=== PATIENT | male | born 1945 | race Caucasian/White ===

== ENCOUNTER 2020-12-01 13:42 | Inpatient (IN) | payer MEDICARE, MEDICAID, SELFPAY ==
--- NOTE | ~2020-12-01 | MR_ITS ---
EXAMINATION: MR BRAIN WITHOUT CONTRAST CLINICAL INFORMATION: Stroke. COMPARISON: Head CT 12/01/2020. TECHNIQUE: Multiplanar, multisequence imaging of the brain was performed without intravenous contrast. Many of the sequences are moderately motion degraded. Some diagnostic information was still obtained. FINDINGS: There is a small acute lacunar infarct within the right thalamus with small amount of associated hemorrhage. A small acute left caudate head lacunar infarct is also present. There is no large territorial infarction, mass, or significant regional mass effect. Chronic infarcts are seen in the bilateral basal ganglia, left thalamus, and bilateral cerebellar hemispheres. There is chronic cortical infarct within the right occipital lobe involving the [employer] vascular territory. Moderate to severe confluent T2/FLAIR hyperintensity in the cerebral white matter is most compatible with chronic microangiopathy. There is diffuse brain parenchymal volume loss with prominence of the ventricles and sulci. No acute hydrocephalus is noted. Major arterial flow voids appear grossly preserved. The orbital contents appear normal. Mild paranasal sinus mucosal thickening is seen. MR/MR head/brain wo con IMPRESSION: Acute infarct within the right thalamus with mild associated hemorrhage. Additional small acute lacunar infarct in the left caudate. Chronic cortical infarct in the right occipital lobe and chronic lacunar infarcts in bilateral basal ganglia, left thalamus, and cerebellar hemispheres. Background changes of advanced chronic microangiopathy.
--- NOTE | ~2020-12-01 | XR_ITS ---
EXAMINATION: XR CHEST CLINICAL INFORMATION: Cough COMPARISON: Previous chest x-rays most recent April [address] most recent June 2014 TECHNIQUE: Frontal view of the chest was obtained. FINDINGS: The cardiac and mediastinal contours are normal. There is a new 1.7 cm right mid lung nodule. The lungs are otherwise clear. There is no pleural effusion or pneumothorax. There are degenerative changes of the spine. XR/XR chest 1V IMPRESSION: New 1.7 cm right pulmonary nodule. Follow-up chest CT scan recommended.
--- NOTE | ~2020-12-01 | CT_ITS ---
EXAMINATION: CT HEAD WITHOUT CONTRAST CLINICAL INFORMATION: Acute mental status change COMPARISON: Previous head CT December 2011 TECHNIQUE: Contiguous axial imaging was performed from the skull base to vertex without intravenous administration of contrast. This CT examination was performed using dose optimization techniques as appropriate, variously including the following: *Automated exposure control *Adjustment of mA and/or kV according to patient size (this includes techniques or standardized protocols for targeted exams where dose is matched to indication/reason for exam; i.e. extremities or head) *Use of iterative reconstruction technique DLP: 899 mGy-cm FINDINGS: There is no evidence of an extra-axial collection. There is no evidence of intra-axial or extra-axial hemorrhage. The ventricles and extra-axial CSF spaces are prominent suggestive of generalized atrophy. There is nonspecific periventricular white matter disease. There is an old right temporo-occipital infarct. There is decreased attenuation seen in the left occipital lobe for example measuring approximately 2 x 3 cm axial image 21 series 2 questionable for a recent infarct. There is evidence of old left thalamic and aggarwal or infarct. There is a 1.3 cm area of low attenuation in the right thalamus axial image 33 series 2 questionable for more recent right thalamic lacunar infarct. No mass effect is seen. Review at bone windows demonstrates no evidence of a skull fracture. The mastoid air cells and middle ears are clear. There is evidence of bilateral frontal and anterior ethmoid sinus disease. There is mild inflammatory change in the left maxillary sinus as well. CT/CT head/brain wo con IMPRESSION: Generalized atrophy and nonspecific periventricular white matter disease. 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 Question more recent right thalamic lacunar infarct and left occipital infarct. This could be better assessed with brain MRI if clinically indicated. All infarcts are new from 2012 exam and atrophy and periventricular white matter disease is new from 2012 exam as well. No hemorrhage seen. Bilateral frontal sinus and anterior ethmoid sinus disease.
--- NOTE | ~2020-12-01 | CT_ITS ---
EXAMINATION: CT ANGIOGRAM OF THE HEAD CT ANGIOGRAM OF THE NECK CLINICAL INFORMATION: Number stroke. COMPARISON: MRI scan the brain obtained earlier 12/02/2020. CT scan of the head 12/01/2020. Chest x-ray 12/01/2020 TECHNIQUE: Test bolus series followed by intravenous administration 17 mL of Omnipaque 350. Helical imaging was performed in the axial plane from the mediastinum to the skull vertex. A delayed CT scan of the head was obtained. The degree of stenosis is based off NASCET criteria. The data was processed at the radiology ct technologist workstation for generation of MIP images. Three-dimensional volume rendered reformatted images were also generated at an offline 3-D workstation. This CT examination was performed using dose optimization techniques as appropriate, variously including the following: *Automated exposure control *Adjustment of mA and/or kV according to patient size (this includes techniques or standardized protocols for targeted exams where dose is matched to indication/reason for exam; i.e. extremities or head) *Use of iterative reconstruction technique DLP: 1580 mGy-cm. FINDINGS: Imaging is markedly degraded by patient motion artifact of the head. CT Head: There is an area of low attenuation in the right thalamus, corresponding to the hemorrhagic infarct demonstrated on the prior MRI scan. No abnormal mass-effect or midline shift is seen. No extra-axial fluid collections are identified. There is no abnormal enhancement. The ventricles and sulci are commensurately prominent consistent with diffuse volume loss. There is a large area of gliosis in the right occipital lobe, corresponding to sequelae of a chronic infarct. Overall, roland to white matter differentiation is well preserved. In addition to these changes, there are extensive areas of low-attenuation in the periventricular and subcortical white matter, most consistent with chronic microvascular ischemic changes. There are no acute osseous findings. There is opacification of the bilateral frontal sinuses and the right greater than left ethmoid air cells. There is a small retention cyst in the left maxillary sinus. CTA Neck: There are atheromatous calcifications of the aortic arch, which has a classic configuration. There are atheromatous calcifications at the origins of the great vessels of the neck including the right subclavian artery. The common carotid arteries are patent bilaterally, but imaging is degraded by patient motion artifact in some regions. There are atheromatous calcifications at the right carotid bifurcation. There is no significant stenosis. More distally in the neck the cervical internal carotid arteries are patent. There are atheromatous calcifications at the origin of the left vertebral artery. The vertebral arteries are patent throughout the cervical course. The left vertebral artery is slightly dominant. Imaging is suboptimal in regions of patient motion artifact. Nonvascular: There is a 2 cm nodule in the superior segment of the right lower lobe, demonstrated on the chest x-ray. There are emphysematous changes in the lungs bilaterally. The thyroid gland appears normal. There is no cervical lymphadenopathy. There are multilevel spondylitic changes in the cervical spine. CTA Head: Patient motion artifact is especially prominent in the [place] of [place]ardo and more superior circulation in the brain. There are atheromatous calcifications of the cavernous internal carotid arteries bilaterally, but the vessels appear patent with thin caliber. Due to motion artifact, the middle and anterior cerebral arteries are poorly evaluated, and pathology cannot be excluded. The intradural vertebral arteries are patent bilaterally. The basilar artery is patent. The left posterior cerebral artery arises primarily off the anterior circulation which is a normal variant. The remaining arterial structures in the posterior circulation are degraded by patient motion artifact. CT/CT angio head neck IMPRESSION: Markedly suboptimal study with extensive patient motion artifact. CT head and neck: 1. The study redemonstrates chronic infarct changes in the right occipital lobe. There is an area of low-attenuation in the right thalamus corresponding to the area of acute infarction. 2. There is diffuse volume loss and there are extensive chronic microvascular ischemic changes. 3. There are no intracranial masses or areas of abnormal enhancement. 4. There is a 2 cm mass at the superior segment of the right lower lobe. Recommend CTA scan of the chest with contrast for further assessment. CT head and neck: 1. The carotid and the vertebral arteries appear patent without significant focal stenosis in the neck. The carotid bifurcations appear normal. 2. Evaluation of the intracranial circulation is markedly suboptimal, and pathology cannot be excluded on the basis of this study. Recommend repeat CTA, at least of the head, with better sedation.
--- NOTE | ~2020-12-01 | US_ITS ---
EXAMINATION: US EXTRACRANIAL CAROTID DUPLEX, BILATERAL CLINICAL INFORMATION: This is a 75-year-old male with a history of stroke. Carotid artery disease. COMPARISON: None TECHNIQUE: Real-time ultrasound and Doppler techniques (integrating B-mode 2-D vascular images, Doppler spectral analysis and color-flow Doppler imaging) were utilized to interrogate the extracranial carotid arteries, the vertebral arteries and proximal subclavian arteries bilaterally. The degree of stenosis is determined by criteria similar to NASCET. FINDINGS: Right Side: 1. There is minimal atherosclerotic plaque seen in the bifurcation/proximal ICA region. 2. The common carotid artery PSV proximally is 62 cm/s and distally 99 cm/s. 3. The proximal internal carotid artery velocities are 69 cm/s systolic and 10 cm/s diastolic. 4. The proximal external carotid artery PSV is 164 cm/s. 5. The vertebral artery shows antegrade flow. 6. The subclavian artery waveforms are normal. Left Side: 1. There is minimal atherosclerotic plaque seen in the bifurcation/proximal ICA region. 2. The common carotid artery PSV proximally is 88 cm/s and distally 72 cm/s. 3. The proximal internal carotid artery velocities are 116 cm/s systolic and 18 cm/s diastolic. 4. The proximal external carotid artery PSV is 77 cm/s. 5. The vertebral artery shows antegrade flow. 6. The subclavian artery waveforms are normal. US/US carotid duplex BI IMPRESSION: 1. RIGHT: Minimal, non-hemodynamically significant stenosis of the proximal right internal carotid artery corresponding to a 0-49% stenosis by velocity criteria. 2. LEFT: Minimal, non-hemodynamically significant stenosis of the proximal left internal carotid artery corresponding to a 0-49% stenosis by velocity criteria.
[2020-12-01 14:01] VITALS: BP 117/91; PULSE 83; RESP 20; TEMP 36.6; O2SAT 93; BMI 26.6
--- NOTE | 2020-12-01 14:07 | ECG_ITS ---
Test Reason : WEAKNESS Blood Pressure : / mmHG Vent. Rate : 080 BPM Atrial Rate : 080 BPM P-R Int : 160 ms QRS Dur : 132 ms QT Int : 430 ms P-R-T Axes : 114 -81 102 degrees QTc Int : 495 ms Sinus rhythm with Premature atrial complexes Left axis deviation Right bundle branch block Lateral infarct , age undetermined Inferior infarct (cited on or before 23-MAR-2005) Abnormal ECG When compared with ECG of 16-APR-2019 17:05, Premature atrial complexes are now Present Right bundle branch block is now Present Lateral infarct is now Present Referred By: Alka Alexandra Electronically Signed By:TYLER GREENE MD
--- NOTE | 2020-12-01 14:09 | ED.AMS ---
HPI - Altered Mental Status General Chief Complaint: Altered Mental Status Stated Complaint: AMS Time Seen by Provider: 12/01/20 13:47 Source: patient Mode of arrival: ambulatory History of Present Illness HPI narrative: 75-year-old male with unknown past medical history BIBA for increased lethargy/generalized fatigue/weakness and AMS x2 days. Most history obtained from patient's daughter who reports patient lives with girlfriend and noted to be in bed for the past 2 days. At baseline A&O x3, ambulates without assistive devices, cares for self/girlfriend. Patient admits to cough, and feeling tired denies other complaints. Of note patient also received COVID-19 vaccine on Wednesday. Denies fever, shortness breath, chest pain, abdominal pain. No known falls History limited due to patient's acute AMS MD complaint: altered mental status and confusion Related Data Allergies Allergy/AdvReac Type Severity Reaction Status Date / Time No Known Allergies Allergy Mild Unverified 06/27/20 15:10 Review of Systems Review of Systems: Constitutional: No Fever, No Chills, +Fatigue, + Malaise Cardiovascular: No Chest Pain, No SOB Respiratory: +Cough Gastrointestinal: No Nausea, No Vomiting, No Abdominal pain Musculoskeletal: No joint pain Skin: No Skin Lesions, No rash Neuro: + Weakness History limited due to patient's acute AMS Yes all other systems are reviewed and are negative [facility] Past Medical History Attestation statement: The following information was validated with the patient. Social History Social History Advance Directives: No Advance Directives Information Provided: No Physical Exam Vital Signs: Vital Signs: Last Vital Signs Temp 97.9 F 12/01/20 16:03 Pulse 80 12/01/20 16:03 Resp 20 12/01/20 16:03 BP 118/66 12/01/20 16:03 Pulse Ox 95 12/01/20 16:03 Body Mass Index 26.6 Const: General: cooperative and lethargic Orientation/consciousness: oriented to person, oriented to place and lethargic Limitations: no limitations HENMT: Head: Yes normal to inspection Ears: hearing grossly normal bilaterally General nose exam: Normal external nose present Face and sinus: Yes normal facial exam Eyes: General: appearance normal, both eyes and all related structures Pupils: Equal, round and reactive pupils present EOM: EOMs intact bilaterally Neck: Neck: Yes normal visual inspection and Yes no meningeal signs Resp: Effort & Inspection: normal respiratory effort Auscultation: clear to auscultation bilaterally and wheezes expiratory wheezes Cardio: Rate: regular rate Heart sounds: S1 normal heart sound present and S2 normal heart sound present GI: Inspection: Yes normal to inspection Palpation (GI): Soft to palpation, nontender, no guarding and not rigid Skin: Rashes: no rashes Wounds: no wounds Neuro: Other: Lethargic. Sleeping on exam, arousable to voice General: oriented to person, oriented to place, tone normal, moves all extremities, no meningeal signs, no focal motor deficits and CN's II-XI intact bilaterally Cranial nerves: Yes Equal, round and reactive pupils present Extrem: Other: +1 pitting edema General: Yes normal to inspection Course Course Course Narrative: -[id number]--tox screen positive for THC, UA infected > IV Rocephin ordered. Newly, patient's girlfriend reported to daughter patient complaining of dysuria -COVID-19/Flu/RSV negative XR chest 1V IMPRESSION: New 1.7 cm right pulmonary nodule. Follow-up chest CT scan recommended -labs unremarkable CT head/brain wo con IMPRESSION: Generalized atrophy and nonspecific periventricular white matter disease. 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 Question more recent right thalamic lacunar infarct and left occipital infarct. This could be better assessed with brain MRI if clinically indicated. All infarcts are new from 2012 exam and atrophy and periventricular white matter disease is new from 2012 exam as well. No hemorrhage seen. Bilateral frontal sinus and anterior ethmoid sinus disease >> will admit for brain MRI/further management MDM - Altered Mental Status MDM Narrative Medical decision making narrative: 75-year-old male with unknown past medical history BIBA for increased lethargy/generalized fatigue/weakness and AMS x2 days. On exam VSS, NAD, physical exam as above, patient lethargic/sleeping on exam, easily arousable, no focal deficits appreciated. Concern for infectious etiology/metabolic derangements vs viral syndrome/COVID-19. Lower concern for severe sepsis at this time. Rule out CVA Plan: EKG, labs, UA, CXR, head CT, COVID-19 testing, anticipated admission Lab Data Result diagrams: 12/01/20 15:49 12/01/20 15:49 Labs: Lab Results 12/01/20 12/01/20 12/01/20 Range/Units 14:31 14:31 14:31 WBC (4.8-10.8) X10*3/uL RBC (4.60-5.80) X10*6/uL Hgb (14.0-18.0) g/dl Hct (42-52) % MCV (80-98) fL MCH (27.0-33.0) pg MCHC (31.0-36.0) g/dl RDW (11.0-16.0) % Plt Count (160-400) X10*3/uL MPV (9.4-12.4) fL Immature Gran % (Auto) (0.0-0.4) % Neut % (Auto) (45-73) % Lymph % (Auto) (20-40) % [place] % (Auto) (2-11) % Eos % (Auto) (0-4) % Baso % (Auto) (0-2) % Lymph # (Auto) (1.2-4.9) X10*3/uL [place] # (Auto) (0.1-1.2) X10*3/uL Eos # (Auto) (0.0-0.4) X10*3/uL Baso # (Auto) (0.0-0.2) X10*3/uL Abs Immat Gran (auto) (0.00-0.03) X10*3/uL Absolute Neuts (auto) (2.0-8.3) X10*3/uL Absolute Nucleated RBC (0.0-0.012) X10*3/uL Nucleated RBC % (auto) (0.0-0.2) /100WBC PT (10.8-13.0) SEC INR (0.9-1.1) APTT (24.1-38.0) SEC Sodium (135-145) mmol/L Potassium (3.3-5.1) mmol/L Chloride (96-108) mmol/L Carbon Dioxide (22-29) mmol/L Anion Gap (12-20) BUN (9-16) mg/dL Creatinine (0.5-1.4) mg/dL Estim Creat Clear Calc Estimated GFR Random Glucose (60-115) mg/dL Calcium (8.4-10.2) mg/dL Magnesium (1.6-2.6) mg/dL Ferritin (20-250) ng/mL Total Bilirubin (0.0-1.0) mg/dL Direct Bilirubin (0.0-0.5) mg/dL AST (5-37) U/L ALT (0-40) U/L Alkaline Phosphatase (39-117) U/L Ammonia (13-55) umol/L Lactate Dehydrogenase (118-273) U/L Troponin I High Sens (<3.5-35.0) ng/L C-Reactive Protein (< or = 0.50) mg/dL B-Natriuretic Peptide (<100) pg/mL Total Protein (6.5-8.0) g/dL Albumin (3.5-5.0) g/dL Lipase (8-78) U/L Procalcitonin ng/mL Urine Color YELLOW Urine Appearance CLEAR Urine pH 6.5 (5.0-8.0) Ur Specific [place] 1.020 (1.005-1.025) Urine Protein TRACE (NEG-TRACE) MG/DL Urine Glucose (UA) NEG (NEG) MG/DL Urine Ketones NEG (NEG) MG/DL Urine Blood NEG (NEG) Urine Nitrite NEG (NEG) Ur Leukocyte Esterase 2+ H (NEG) Urine RBC 0 (0) /HPF Urine WBC 5-9 H (0-4) /HPF Ur Squamous Epith Cells 1+ /LPF Urine Bacteria NONE /LPF Urine Mucus 1+ /LPF Urine Opiates Screen Not Detected (Not Detect) Ur Barbiturates Screen Not Detected (Not Detect) Ur Phencyclidine Scrn Not Detected (Not Detect) Ur Amphetamines Screen Not Detected (Not Detect) U Benzodiazepines Scrn Not Detected (Not Detect) Urine Cocaine Screen Not Detected (Not Detect) U Marijuana (THC) Screen POSITIVE H (Not Detect) Coronavirus (PCR) NEGATIVE (Negative) Influenza Type A (PCR) NEGATIVE (Negative) Influenza Type B (PCR) NEGATIVE (Negative) RSV RNA Qual (PCR) NEGATIVE (Negative) 12/01/20 12/01/20 12/01/20 Range/Units 15:49 15:49 15:49 WBC 8.7 (4.8-10.8) X10*3/uL RBC 4.90 (4.60-5.80) X10*6/uL Hgb 15.5 (14.0-18.0) g/dl Hct 47.9 (42-52) % MCV 97.8 (80-98) fL MCH 31.6 (27.0-33.0) pg MCHC 32.4 (31.0-36.0) g/dl RDW 13.1 (11.0-16.0) % Plt Count 204 (160-400) X10*3/uL MPV 10.5 (9.4-12.4) fL Immature Gran % (Auto) 0.2 (0.0-0.4) % Neut % (Auto) 63.6 (45-73) % Lymph % (Auto) 24.1 (20-40) % [place] % (Auto) 9.3 (2-11) % Eos % (Auto) 2.6 (0-4) % Baso % (Auto) 0.2 (0-2) % Lymph # (Auto) 2.1 (1.2-4.9) X10*3/uL [place] # (Auto) 0.8 (0.1-1.2) X10*3/uL Eos # (Auto) 0.2 (0.0-0.4) X10*3/uL Baso # (Auto) 0.0 (0.0-0.2) X10*3/uL Abs Immat Gran (auto) 0.02 (0.00-0.03) X10*3/uL Absolute Neuts (auto) 5.5 (2.0-8.3) X10*3/uL Absolute Nucleated RBC 0.000 (0.0-0.012) X10*3/uL Nucleated RBC % (auto) 0.0 (0.0-0.2) /100WBC PT 13.6 H (10.8-13.0) SEC INR 1.1 (0.9-1.1) APTT 33.4 (24.1-38.0) SEC Sodium 141 (135-145) mmol/L Potassium 3.6 (3.3-5.1) mmol/L Chloride 106 (96-108) mmol/L Carbon Dioxide 27 (22-29) mmol/L Anion Gap 12 (12-20) BUN 7 L (9-16) mg/dL Creatinine 0.87 (0.5-1.4) mg/dL Estim Creat Clear Calc 62.8 Estimated GFR > 60 Random Glucose 214 H (60-115) mg/dL Calcium 8.1 L (8.4-10.2) mg/dL Magnesium 1.7 (1.6-2.6) mg/dL Ferritin 125 (20-250) ng/mL Total Bilirubin 0.8 (0.0-1.0) mg/dL Direct Bilirubin 0.3 (0.0-0.5) mg/dL AST 12 (5-37) U/L ALT 15 (0-40) U/L Alkaline Phosphatase 98 (39-117) U/L Ammonia (13-55) umol/L Lactate Dehydrogenase 183 (118-273) U/L Troponin I High Sens (<3.5-35.0) ng/L C-Reactive Protein 0.41 (< or = 0.50) mg/dL B-Natriuretic Peptide (<100) pg/mL Total Protein 6.0 L (6.5-8.0) g/dL Albumin 3.3 L (3.5-5.0) g/dL Lipase 4 L (8-78) U/L Procalcitonin ng/mL Urine Color Urine Appearance Urine pH (5.0-8.0) Ur Specific [place] (1.005-1.025) Urine Protein (NEG-TRACE) MG/DL Urine Glucose (UA) (NEG) MG/DL Urine Ketones (NEG) MG/DL Urine Blood (NEG) Urine Nitrite (NEG) Ur Leukocyte Esterase (NEG) Urine RBC (0) /HPF Urine WBC (0-4) /HPF Ur Squamous Epith Cells /LPF Urine Bacteria /LPF Urine Mucus /LPF Urine Opiates Screen (Not Detect) Ur Barbiturates Screen (Not Detect) Ur Phencyclidine Scrn (Not Detect) Ur Amphetamines Screen (Not Detect) U Benzodiazepines Scrn (Not Detect) Urine Cocaine Screen (Not Detect) U Marijuana (THC) Screen (Not Detect) Coronavirus (PCR) (Negative) Influenza Type A (PCR) (Negative) Influenza Type B (PCR) (Negative) RSV RNA Qual (PCR) (Negative) 12/01/20 12/01/20 12/01/20 Range/Units 15:49 15:49 15:49 WBC (4.8-10.8) X10*3/uL RBC (4.60-5.80) X10*6/uL Hgb (14.0-18.0) g/dl Hct (42-52) % MCV (80-98) fL MCH (27.0-33.0) pg MCHC (31.0-36.0) g/dl RDW (11.0-16.0) % Plt Count (160-400) X10*3/uL MPV (9.4-12.4) fL Immature Gran % (Auto) (0.0-0.4) % Neut % (Auto) (45-73) % Lymph % (Auto) (20-40) % [place] % (Auto) (2-11) % Eos % (Auto) (0-4) % Baso % (Auto) (0-2) % Lymph # (Auto) (1.2-4.9) X10*3/uL [place] # (Auto) (0.1-1.2) X10*3/uL Eos # (Auto) (0.0-0.4) X10*3/uL Baso # (Auto) (0.0-0.2) X10*3/uL Abs Immat Gran (auto) (0.00-0.03) X10*3/uL Absolute Neuts (auto) (2.0-8.3) X10*3/uL Absolute Nucleated RBC (0.0-0.012) X10*3/uL Nucleated RBC % (auto) (0.0-0.2) /100WBC PT (10.8-13.0) SEC INR (0.9-1.1) APTT (24.1-38.0) SEC Sodium (135-145) mmol/L Potassium (3.3-5.1) mmol/L Chloride (96-108) mmol/L Carbon Dioxide (22-29) mmol/L Anion Gap (12-20) BUN (9-16) mg/dL Creatinine (0.5-1.4) mg/dL Estim Creat Clear Calc Estimated GFR Random Glucose (60-115) mg/dL Calcium (8.4-10.2) mg/dL Magnesium (1.6-2.6) mg/dL Ferritin (20-250) ng/mL Total Bilirubin (0.0-1.0) mg/dL Direct Bilirubin (0.0-0.5) mg/dL AST (5-37) U/L ALT (0-40) U/L Alkaline Phosphatase (39-117) U/L Ammonia 29 (13-55) umol/L Lactate Dehydrogenase (118-273) U/L Troponin I High Sens 14.3 (<3.5-35.0) ng/L C-Reactive Protein (< or = 0.50) mg/dL B-Natriuretic Peptide 169 H (<100) pg/mL Total Protein (6.5-8.0) g/dL Albumin (3.5-5.0) g/dL Lipase (8-78) U/L Procalcitonin 0.03 ng/mL Urine Color Urine Appearance Urine pH (5.0-8.0) Ur Specific [place] (1.005-1.025) Urine Protein (NEG-TRACE) MG/DL Urine Glucose (UA) (NEG) MG/DL Urine Ketones (NEG) MG/DL Urine Blood (NEG) Urine Nitrite (NEG) Ur Leukocyte Esterase (NEG) Urine RBC (0) /HPF Urine WBC (0-4) /HPF Ur Squamous Epith Cells /LPF Urine Bacteria /LPF Urine Mucus /LPF Urine Opiates Screen (Not Detect) Ur Barbiturates Screen (Not Detect) Ur Phencyclidine Scrn (Not Detect) Ur Amphetamines Screen (Not Detect) U Benzodiazepines Scrn (Not Detect) Urine Cocaine Screen (Not Detect) U Marijuana (THC) Screen (Not Detect) Coronavirus (PCR) (Negative) Influenza Type A (PCR) (Negative) Influenza Type B (PCR) (Negative) RSV RNA Qual (PCR) (Negative)
[2020-12-01 14:39] LABS: Glucose Urine UA NEG (NEG); Leukocyte Esterase Urine 2+ (NEG); Nitrite Urine NEG (NEG); PH 6.5 (5.0-8.0); UACC Culture Trigger YES; Urine Blood NEG (NEG); Urine Ketones NEG (NEG); Urine Protein TRACE MG/DL (NEG-TRACE)
[2020-12-01 14:51] LABS: Appearance Urine CLEAR; Color Urine YELLOW
[2020-12-01 14:53] LABS: RBC Urine 0 /HPF (0)
[2020-12-01 14:54] LABS: Mucus Urine 1+ /LPF; Squamous Epithelial Cell Urine 1+ /LPF
[2020-12-01 15:06] LABS: Amphetamine Screen Urine Not Detected (Not Detect); Barbiturates, Urine Not Detected (Not Detect); Benzodiazepines Screen Urine Not Detected (Not Detect); Cannabinoid Screen Urine POSITIVE (Not Detect); Cocaine Screen Urine Not Detected (Not Detect); Opiate Screen Urine Not Detected (Not Detect); Phencyclidine Screen Urine Not Detected (Not Detect)
[2020-12-01 15:23] LABS: Influenza A PCR NEGATIVE (Negative); Influenza B PCR NEGATIVE (Negative); Resp Syncy Virus RNA Qual PCR NEGATIVE (Negative); SARS COV2 PCR INHOUSE NEGATIVE (Negative)
--- NOTE | 2020-12-01 15:54 | PC.NURSE ---
THIS RN SPOKE W/ PT'S S/O WHO REPORTS PT HAD C/O BURNING W/ URINATION LAST COUPLE DAYS, PROVIDER AWARE.
[2020-12-01 15:55] LABS: MANUAL DIFF FLAG NO
[2020-12-01 15:57] LABS: Basophils Percent Auto 0.2 % (0-2); Eosinophils Absolute Auto 0.2 X10*3/uL (0.0-0.4); Eosinophils Percent Auto 2.6 % (0-4); Hematocrit 47.9 % (42-52); Hemoglobin 15.5 g/dl (14.0-18.0); Imm Gran Abs Auto 0.02 X10*3/uL (0.00-0.03); Imm Gran Pct Auto 0.2 % (0.0-0.4); Lymphocytes Absolute Auto 2.1 X10*3/uL (1.2-4.9); Lymphocytes Percent Auto 24.1 % (20-40); Mean Corpuscular HGB Conc 32.4 g/dl (31.0-36.0); Mean Corpuscular Hemoglobin 31.6 pg (27.0-33.0); Mean Corpuscular Volume 97.8 fL (80-98); Mean Platelet Volume 10.5 fL (9.4-12.4); Monocytes Absolute Auto 0.8 X10*3/uL (0.1-1.2); Monocytes Percent Auto 9.3 % (2-11); Neutrophils Absolute Auto 5.5 X10*3/uL (2.0-8.3); Neutrophils Percent Auto 63.6 % (45-73); Platelet Count 204 X10*3/uL (160-400); Red Cell Distribution Width 13.1 % (11.0-16.0); White Blood Count 8.7 X10*3/uL (4.8-10.8)
[2020-12-01 16:03] VITALS: BP 118/66; PULSE 80; RESP 20; TEMP 36.6; O2SAT 95
[2020-12-01 16:06] LABS: INTERNATIONAL NORM RATIO 1.1 (0.9-1.1); Prothrombin Time 13.6 SEC (10.8-13.0)
[2020-12-01 16:08] LABS: Partial Thromboplastin Time 33.4 SEC (24.1-38.0)
[2020-12-01] MEDS: Albuterol/Iprat 2.5/0.5MG 3 ML AMPUL.NEB INHALE (16:09)
[2020-12-01 16:19] LABS: Ammonia 29 umol/L (13-55)
[2020-12-01 16:27] LABS: Alanine Aminotransferase 15 U/L (0-40); Albumin Level 3.3 g/dL (3.5-5.0); Alkaline Phosphatase 98 U/L (39-117); Anion Gap 12 (12-20); Aspartate Amino Transferase 12 U/L (5-37); Bilirubin Direct 0.3 mg/dL (0.0-0.5); Bilirubin Total 0.8 mg/dL (0.0-1.0); Blood Urea Nitrogen 7 mg/dL (9-16); C Reactive Protein 0.41 mg/dL (< or = 0.50); Calcium 8.1 mg/dL (8.4-10.2); Carbon Dioxide 27 mmol/L (22-29); Chloride 106 mmol/L (96-108); Creatinine Clr Calc Pharmacy 62.8; Estimated Glomerular Filt Rate > 60; Glucose Random 214 mg/dL (60-115); Lactate Dehydrogenase 183 U/L (118-273); Lipase 4 U/L (8-78); Magnesium 1.7 mg/dL (1.6-2.6); Potassium 3.6 mmol/L (3.3-5.1); Sodium 141 mmol/L (135-145)
[2020-12-01] MEDS: cefTRIAXone sodium 1 GM in 0.9 % Sodium Chloride 50 ML IV (16:29)
[2020-12-01 16:30] LABS: B Type Natriuretic Peptide 169 pg/mL (<100); Troponin-I High Sensitivity 14.3 ng/L (<3.5-35.0)
[2020-12-01 16:44] LABS: Procalcitonin 0.03 ng/mL
[2020-12-01 16:47] LABS: Ferritin 125 ng/mL (20-250)
--- NOTE | 2020-12-01 17:54 | P.HPHOSP_ITS ---
History of Present Illness Date of Service: 12/01/20 Chief Complaint: Confusion 75 year old man presenting with confusion. According to the patients step- daughter he received the covid vaccine on Wednesday. He was sore and she gave him two tylenol. Apparently his girlfriend said that the Tylenol knocked him out. Has been lethargic for last few days. He was stumbling out of bed and seemed to have chills. Step daughter tried to get him to talk and he seemed to be babbling . She was concerned and called PCP and was told to call EMS. She stated that she is usually alert abd oriented. He was able to tell his name and where he was but not the date or time. He did not give any useful information during the interview. He will be admitted for stroke. Review of Systems Review of Systems: Yes Unobtainable due to mental status [facility] Medical History (Updated 12/01/20 @ 18:41 by Charlene Yo NP) Asthma CAD (coronary artery disease) COPD (chronic obstructive pulmonary disease) GERD (gastroesophageal reflux disease) Scrotal abscess TIA (transient ischemic attack) Pertinent family history: Unknown Social History (Updated 12/01/20 @ 18:23 by Charlene Yo NP) Household Members: Significant Other Alcohol intake: former Packs Per Day: 0.5 Use of substances other than those prescribed or required for medical reasons: No Advance Directives: No Advance Directives Information Provided: No Meds Allergies Allergy/AdvReac Type Severity Reaction Status Date / Time No Known Allergies Allergy Mild Unverified 06/27/20 15:10 Home Medications Medication Instructions Recorded Confirmed Last Taken Type aspirin 1 tab PO DAILY 12/01/20 12/01/20 Unknown History atorvastatin 1 tab PO DAILY 12/01/20 12/01/20 Unknown History cyanocobalamin (vitamin B-12) 1 tab PO DAILY 12/01/20 12/01/20 Unknown History docusate sodium [DOK] 1 cap PO Q12H PRN 12/01/20 12/01/20 Unknown History furosemide 1.5 tab PO DAILY 12/01/20 12/01/20 Unknown History lisinopril 1 tab PO DAILY 12/01/20 12/01/20 Unknown History spironolactone 0.5 tab PO DAILY 12/01/20 12/01/20 Unknown History triamcinolone acetonide appl TOPICAL BID 12/01/20 Unknown History Physical Exam Vital Signs and Narrative: Vital Signs: Last Vital Signs Temp 97.9 F 12/01/20 16:03 Pulse 80 12/01/20 16:03 Resp 20 12/01/20 16:03 BP 118/66 12/01/20 16:03 Pulse Ox 95 12/01/20 16:03 Body Mass Index 26.6 Appearing in no acute distress head is normocephalic atraumatic eyes pupils are PERRLA sclera is anicteric mouth throat mucous membranes are intact and moist neck is supple no lymphadenopathy, no JVD noted lung sounds are clear to auscultation heart regular rate rhythm, clear S1, S2 positive bowel sounds, abdomen is soft, nontender neuro patient is alert x3, no focal deficits Results Labs CBC and Chem 7: 12/01/20 15:49 12/01/20 15:49 Labs: Laboratory Results - last 24 hr 12/01/20 12/01/20 12/01/20 14:31 14:31 14:31 MCV MCH MCHC RDW Plt Count MPV Immature Gran % (Auto) Neut % (Auto) Lymph % (Auto) [place] % (Auto) Eos % (Auto) Baso % (Auto) Lymph # (Auto) [place] # (Auto) Eos # (Auto) Baso # (Auto) Abs Immat Gran (auto) Absolute Neuts (auto) Absolute Nucleated RBC Nucleated RBC % (auto) PT INR APTT Anion Gap Estim Creat Clear Calc Estimated GFR Random Glucose Calcium Magnesium Ferritin Total Bilirubin Direct Bilirubin AST ALT Alkaline Phosphatase Ammonia Lactate Dehydrogenase Troponin I High Sens C-Reactive Protein B-Natriuretic Peptide Total Protein Albumin Lipase Procalcitonin Urine Color YELLOW Urine Appearance CLEAR Urine pH 6.5 Ur Specific [place] 1.020 Urine Protein TRACE Urine Glucose (UA) NEG Urine Ketones NEG Urine Blood NEG Urine Nitrite NEG Ur Leukocyte Esterase 2+ H Urine RBC 0 Urine WBC 5-9 H Ur Squamous Epith Cells 1+ Urine Bacteria NONE Urine Mucus 1+ Urine Opiates Screen Not Detected Ur Barbiturates Screen Not Detected Ur Phencyclidine Scrn Not Detected Ur Amphetamines Screen Not Detected U Benzodiazepines Scrn Not Detected Urine Cocaine Screen Not Detected U Marijuana (THC) Screen POSITIVE H Coronavirus (PCR) NEGATIVE Influenza Type A (PCR) NEGATIVE Influenza Type B (PCR) NEGATIVE RSV RNA Qual (PCR) NEGATIVE 02/12/01/20 12/01/20 15:49 15:49 15:49 MCV 97.8 MCH 31.6 MCHC 32.4 RDW 13.1 Plt Count 204 MPV 10.5 Immature Gran % (Auto) 0.2 Neut % (Auto) 63.6 Lymph % (Auto) 24.1 [place] % (Auto) 9.3 Eos % (Auto) 2.6 Baso % (Auto) 0.2 Lymph # (Auto) 2.1 [place] # (Auto) 0.8 Eos # (Auto) 0.2 Baso # (Auto) 0.0 Abs Immat Gran (auto) 0.02 Absolute Neuts (auto) 5.5 Absolute Nucleated RBC 0.000 Nucleated RBC % (auto) 0.0 PT 13.6 H INR 1.1 APTT 33.4 Anion Gap 12 Estim Creat Clear Calc 62.8 Estimated GFR > 60 Random Glucose 214 H Calcium 8.1 L Magnesium 1.7 Ferritin 125 Total Bilirubin 0.8 Direct Bilirubin 0.3 AST 12 ALT 15 Alkaline Phosphatase 98 Ammonia Lactate Dehydrogenase 183 Troponin I High Sens C-Reactive Protein 0.41 B-Natriuretic Peptide Total Protein 6.0 L Albumin 3.3 L Lipase 4 L Procalcitonin Urine Color Urine Appearance Urine pH Ur Specific [place] Urine Protein Urine Glucose (UA) Urine Ketones Urine Blood Urine Nitrite Ur Leukocyte Esterase Urine RBC Urine WBC Ur Squamous Epith Cells Urine Bacteria Urine Mucus Urine Opiates Screen Ur Barbiturates Screen Ur Phencyclidine Scrn Ur Amphetamines Screen U Benzodiazepines Scrn Urine Cocaine Screen U Marijuana (THC) Screen Coronavirus (PCR) Influenza Type A (PCR) Influenza Type B (PCR) RSV RNA Qual (PCR) 12/01/20 12/01/20 12/01/20 15:49 15:49 15:49 MCV MCH MCHC RDW Plt Count MPV Immature Gran % (Auto) Neut % (Auto) Lymph % (Auto) [place] % (Auto) Eos % (Auto) Baso % (Auto) Lymph # (Auto) [place] # (Auto) Eos # (Auto) Baso # (Auto) Abs Immat Gran (auto) Absolute Neuts (auto) Absolute Nucleated RBC Nucleated RBC % (auto) PT INR APTT Anion Gap Estim Creat Clear Calc Estimated GFR Random Glucose Calcium Magnesium Ferritin Total Bilirubin Direct Bilirubin AST ALT Alkaline Phosphatase Ammonia 29 Lactate Dehydrogenase Troponin I High Sens 14.3 C-Reactive Protein B-Natriuretic Peptide 169 H Total Protein Albumin Lipase Procalcitonin 0.03 Urine Color Urine Appearance Urine pH Ur Specific [place] Urine Protein Urine Glucose (UA) Urine Ketones Urine Blood Urine Nitrite Ur Leukocyte Esterase Urine RBC Urine WBC Ur Squamous Epith Cells Urine Bacteria Urine Mucus Urine Opiates Screen Ur Barbiturates Screen Ur Phencyclidine Scrn Ur Amphetamines Screen U Benzodiazepines Scrn Urine Cocaine Screen U Marijuana (THC) Screen Coronavirus (PCR) Influenza Type A (PCR) Influenza Type B (PCR) RSV RNA Qual (PCR) Imaging Radiologist's Impressions: Impressions Chest X-Ray 12/01/20 14:07 IMPRESSION: New 1.7 cm right pulmonary nodule. Follow-up chest CT scan recommended. Head CT 12/01/20 14:07 IMPRESSION: Generalized atrophy and nonspecific periventricular white matter disease. 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 Question more recent right thalamic lacunar infarct and left occipital infarct. This could be better assessed with brain MRI if clinically indicated. All infarcts are new from 2012 exam and atrophy and periventricular white matter disease is new from 2012 exam as well. No hemorrhage seen. Bilateral frontal sinus and anterior ethmoid sinus disease. Assessment and Plan (1) Encephalopathy: Status: Acute 75 year old man admitted with stroke symptoms. Stroke. MRI, echocardiogram, carotid doppler, PT/OT, neurology. Continue aspirin and statin. Hypertension. Hold lisinoril in light of stroke symptoms. CAD. Aspirin and statin DVT prophylaxis with Lovenox. Discussed with Dr. Santos Full code
[2020-12-01 20:53] VITALS: BP 125/63; PULSE 80; RESP 17; TEMP 36.6; O2SAT 93
[2020-12-01] MEDS: Enoxaparin Sodium 40 MG/0.4 ML SYRINGE SUBCUT (20:56)
[2020-12-01] MEDS: Aspirin 81 MG TAB.CHEW 162 MG PO (20:56)
[2020-12-02] VITALS (8 sets, daily range): BP systolic 115–152; BP diastolic 56–78; PULSE 69–98; RESP 15–23; TEMP 36.6–37.1; O2SAT 93–96
[2020-12-02 06:53] LABS: Basophils Percent Auto 0.2 % (0-2); Mean Corpuscular HGB Conc 33.1 g/dl (31.0-36.0); PLT CLUMP 1; SCAN SMEAR FLAG 1
[2020-12-02 06:55] LABS: Eosinophils Absolute Auto 0.3 X10*3/uL (0.0-0.4); Eosinophils Percent Auto 3.4 % (0-4); Hematocrit 51.4 % (42-52); Imm Gran Abs Auto 0.03 X10*3/uL (0.00-0.03); Imm Gran Pct Auto 0.3 % (0.0-0.4); Lymphocytes Absolute Auto 2.8 X10*3/uL (1.2-4.9); Lymphocytes Percent Auto 28.6 % (20-40); Mean Corpuscular Hemoglobin 31.9 pg (27.0-33.0); Mean Corpuscular Volume 96.4 fL (80-98); Monocytes Percent Auto 9.9 % (2-11); Neutrophils Absolute Auto 5.6 X10*3/uL (2.0-8.3); Neutrophils Percent Auto 57.6 % (45-73); Platelet Count 142 X10*3/uL (160-400); Red Blood Count 5.33 X10*6/uL (4.60-5.80); White Blood Count 9.7 X10*3/uL (4.8-10.8)
[2020-12-02 07:14] LABS: MANUAL DIFF FLAG SCAN
--- NOTE | 2020-12-02 07:44 | P.PNIM_ITS ---
Subjective Subjective Date of Service: 12/02/20 Interval History: Follow up stroke Physical Exam Vital Signs: Vital Signs: Last Vital Signs Temp 98 F 12/01/20 20:53 Pulse 80 12/02/20 04:32 Resp 16 12/02/20 04:32 BP 125/63 12/01/20 20:53 Pulse Ox 93 12/01/20 20:53 Body Mass Index 26.6 Appearing in no acute distress head is normocephalic atraumatic eyes pupils are PERRLA sclera is anicteric mouth throat mucous membranes are intact and moist neck is supple no lymphadenopathy, no JVD noted lung sounds are clear to auscultation heart regular rate rhythm, clear S1, S2 positive bowel sounds, abdomen is soft, nontender neuro patient is alert x3, no focal deficits Objective Data Current Medications Generic Name Dose Route Start Last Admin Trade Name Freq PRN Reason Stop Dose Admin Acetaminophen 650 mg 12/01/20 18:45 Acetaminophen 325 Mg Tablet PO Q6H PRN Pain, Mild (Pain Scale 1-3) Aspirin 81 mg 12/02/20 09:00 Aspirin Enteric Coated 81 Mg Tablet.Dr PO DAILY [facility] Atorvastatin Calcium 80 mg 12/02/20 09:00 Atorvastatin Calcium 80 Mg Tablet PO DAILY [facility] Cyanocobalamin 1,000 mcg 12/02/20 09:00 Cyanocobalamin (Vitamin B-12) 1,000 Mcg Tablet PO DAILY [facility] Docusate Sodium 100 mg 12/01/20 18:45 Docusate Sodium 100 Mg Capsule PO Q12H PRN Constipation Enoxaparin Sodium 40 mg 12/01/20 18:45 12/01/20 20:56 Enoxaparin Sodium 40 Mg/0.4 Ml Syringe SUBCUT 40 mg Q24H [facility] Administration Furosemide 30 mg 12/02/20 09:00 Furosemide 20 Mg Tablet PO DAILY [facility] Protocol Ondansetron HCl 4 mg 12/01/20 18:45 Ondansetron Hcl 4 Mg/2 Ml Vial IVPUSH Q8H PRN Nausea and Vomiting Sodium Chloride 3 ml 12/02/20 00:00 12/02/20 03:02 0.9 % Sodium Chloride Flush 3 Ml Syringe IVFLUSH Not Given QSHIFT [facility] Spironolactone 12.5 mg 12/02/20 09:00 Spironolactone 25 Mg Tablet PO DAILY [facility] Protocol Labs CBC & Chem 7: 12/02/20 06:31 12/02/20 07:47 Assessment and Plan (1) Encephalopathy: Status: Acute Assessment and Plan: 75 year old man admitted with stroke. Appears to have multiple strokes on MRI Stroke. MRI showed acute infarct within the right thalamus with mild associated hemorrhage. Still with some confusion. Updated step-daughter Vani ([phone]). -Continue aspirin and Lovenox -Neuro to follow. -Head CTA Hypertension -Continue to hold lisinopril, lasix and spironolactone in light of stroke CAD. -Aspirin and statin
[2020-12-02 07:48] LABS: SLIDE REVIEW VERIFIED
--- NOTE | 2020-12-02 08:00 | CA_ITS ---
Transthoracic Echocardiogram Patient (Last, First, Middle): Kane Block, Gender: Male Date of : 1945 Age: 75 Procedure Date: 12/02/2020 Procedure Type: Transthoracic Echocardiogram Location: [facility] [place] Height: 165.1 cm Weight: 72.58 kg BSA: 1.80 m2 Heart Rate: bpm BP: 125 / 63 mmHg Revenue Collector: MAG Referring MD: Charlene Yo NP Strategic Sourcing Specialist: Denys Moreno MD Symptoms: stroke Study Quality: Fair ECG Rhythm: Sinus with extra beats Conclusions: - 1. Severe LV systolic dysfunction with regional wall motion abnormality consistent with ischemic cardiomyopathy with impaired relaxation filling pattern 2. Mild aortic regurgitation with limited evaluation of cardiac valves 3. Normal RV systolic pressure 4. No pericardial effusion Findings Left Ventricle Normal left ventricular cavity size. There is mildly increased left ventricular wall thickness. The left ventricular systolic function is severely decreased. The visually estimated ejection fraction is between 25 30%. Spectral Doppler is indicative of an impaired relaxation filling pattern. Wall Motion Rest Echo Findings The inferoseptal wall, inferolateral wall, the basal inferior, mid inferior, and basal anterolateral segments are akinetic. All other scored wall segments showed normal motion. Right Ventricle Normal right ventricular cavity size and systolic function. Atria The left atrium is mildly dilated. Interatrial shunt cannot be excluded. The right atrium was not well visualized. Aortic Valve The aortic valve was not well visualized. There is no aortic valve stenosis. There is mild aortic valve regurgitation. Mitral Valve The mitral valve was not well visualized. There is trace mitral valve regurgitation. There is no mitral valve stenosis. Pulmonic Valve The pulmonic valve was not well visualized. Tricuspid Valve Likely normal tricuspid valve structure and function. There is mild tricuspid valve regurgitation. The right ventricular systolic pressure is normal. The right ventricular systolic pressure is 18 mmHg. Normal right atrial pressure. Great Vessels The pulmonary artery was not well visualized. There is mild dilatation of the ascending aorta measuring 3.70 cm. Venous The inferior vena cava is normal in size and collapses greater than 50% with inspiration. Pericardium/Pleural There is no evidence of pericardial effusion. Prior Study Comparison No significant change compared to prior study dated: 05/27/2020. Measurements 2D Linear Measurements IVSd: 1.50 0.6-0.9/0.6-1.0 cm LVIDd: 4.87 3.9-5.3/4.2-5.9 cm LVIDd Index: 2.71 2.4-3.2/2.2-3.1 cm/m2 LVIDs: 3.93 2.0-3.6 cm LVPWd: 1.45 0.7-1.1 cm Ao Root: 3.40 2.1-3.5 cm LA Diam: 4.20 2.7-3.8/3.0-4.0 cm LAIDs Index: 2.33 1.5-2.3 cm/m2 LV Mass: 377.22 67-162/88-224 g LV Mass Index: 209.57 43-95/49-115 g/m2 LVOT Diam: 2.00 3.0+(-)1.3 cm 2D Systolic Function EF 4C: 24.60 >55% EF 2C: 18.50 >55% EF BiP: 20.30 >55% Mitral Valve MV Pk E: 0.54 MV PK A: 0.83 MV Decel Time: 264.00 E/A: 0.60 E'Lateral: 2.51 E'Medial: 4.84 E/E' Med: 11.10 E/E' Lat: 21.40 PHT: 77.00 MVA PHT: 2.86 Decel [place]: 2.04 Aortic Valve AoV Pk Raimundo: 1.31 AoV Mn Raimundo: 0.87 AoV VTI: 0.29 AoV Pk Grad: 7.00 Aov Mn Grad: 4.00 REFUGIO Cont.VTI: 2.00 AI Pk Raimundo: 3.76 AI [place]: 1.52 LVOT LVOT Pk Raimundo: 0.86 LVOT Mn Raimundo: 0.58 LVOT VTI: 0.18 LVOT Pk Grad: 3.00 LVOT Mn Grad: 2.00 LVOT Diam: 2.00 LVOT Area: 3.14 Diastolic Function MV Pk E: 0.54 MV Pk A: 0.83 E/A: 0.60 E'Medial: 4.84 E/E' Med: 11.10 E' Laterial: 2.51 E/E' Lat: 21.40 Tricuspid Valve TR Pk Raimundo: 1.91 TR Pk Grad: 15.00 RA Press: 3.00 RVSP: 18.00 Great Vessels Aorta Ao Root-2D: 3.40 2.0-3.7 cm Ao Asc: 3.70 2.1-3.4 cm Pulmonary Valve PV Pk Raimundo: 0.98 Peak PV Grad: 4.00 Updated in Other Vendor System with Status of Final Denys Moreno MD electronically signed on 12/02/2020 4:38:49 PM with status of Final
--- NOTE | 2020-12-02 08:12 | PC.NURSE ---
PT IN FOR EVAL. PT AMB WELL. MRI SCREENING FORM COMPLETE.
[2020-12-02 08:30] LABS: Anion Gap 17 (12-20); Blood Urea Nitrogen 12 mg/dL (9-16); Calcium 9.3 mg/dL (8.4-10.2); Carbon Dioxide 26 mmol/L (22-29); Chloride 103 mmol/L (96-108); Cholesterol 147 mg/dL; Estimated Glomerular Filt Rate > 60; Glucose Random 196 mg/dL (60-115); HDL Cholesterol 30 mg/dL; LDL Cholesterol Calculated 80 mg/dl; Potassium 4.6 mmol/L (3.3-5.1); Sodium 141 mmol/L (135-145); Triglycerides 189 mg/dL
--- NOTE | 2020-12-02 11:02 | MHC.CM.PN ---
Attempted to meet with patient in regards to discharge plannign. Patient is not available at this time. Attempted to reach Vani via telephone at [phone]. Left voicemail requesting return telephone call. Continue to monitor for d/c needs.
[2020-12-02] MEDS: 0.9 % Sodium Chloride Flush 3 ML SYRINGE IVFLUSH ×2 (11:20→15:16)
--- NOTE | 2020-12-02 11:20 | PC.NURSE ---
Mac RN, Pt AM meds held d/t pending swallow evaluation. Failed Swallow eval per primary RN Pt now off unit to ultrasound
--- NOTE | 2020-12-02 14:32 | MHC.CM.PN ---
Attempted to meet with patient in regards to discharge planning. Nursing care is being provided. Spoke with patient's step-daughter, Vani Santos via telephone at [phone]. Vani is a tube man for [employer] and takes lunch daily around 1230pm. Patient lives with his sig other, who has some mental health issues. Prior to being admitted, patient would ride his bicycle everywhere and was very active and independent. PCP verified. Vani tristanives he completed a HCP previously at [facility]. However a copy is not on file in the new or old system. Patient's PCP does not have a copy either. A new HCP will need to be made. Patient hopes Vani and her brother Alexis will be listed as agents. IMM explained and sent via email as requested. Physical therapy is recommending home therapy. Vani is requesting referral to [facility]. Referral made via allscripts. Continue to monitor for d/c needs.
--- NOTE | 2020-12-02 14:54 | PM.NEUROCN ---
History of Present Illness Data of Consult Service Date: 12/02/20 Primary Care Provider: Ludin Anderson MD 75 years old man with underlying history of COPD and coronary artery disease who came to hospital with new onset of confusion. Onset was unclear. He was also stumbling and unsteady. In emergency room he had a workup that revealed an acute stroke in this consultation was requested. Because of lack of clarity of time of onset acute treatments such as intravenous tPA not considered. There was no sign of any headache nausea or vomiting or trauma. [facility] Past Medical History Medical History (Updated 12/02/20 @ 14:56 by Nelson Ybarra MD) Asthma CAD (coronary artery disease) COPD (chronic obstructive pulmonary disease) GERD (gastroesophageal reflux disease) Scrotal abscess TIA (transient ischemic attack) Social History Social History (Updated 12/01/20 @ 18:23 by Charlene Yo NP) Household Members: Significant Other Alcohol intake: former Packs Per Day: 0.5 Use of substances other than those prescribed or required for medical reasons: No Advance Directives: No Advance Directives Information Provided: No service: No Current occupational status: retired [employer] Allergies Allergy/AdvReac Type Severity Reaction Status Date / Time No Known Allergies Allergy Mild Unverified 06/27/20 15:10 Active Medications: Current Medications Generic Name Dose Route Start Last Admin Trade Name Freq PRN Reason Stop Dose Admin Acetaminophen 650 mg 12/01/20 18:45 Acetaminophen 325 Mg Tablet PO Q6H PRN Pain, Mild (Pain Scale 1-3) Atorvastatin Calcium 80 mg 12/02/20 09:00 12/02/20 11:19 Atorvastatin Calcium 80 Mg Tablet PO Not Given DAILY [facility] Cyanocobalamin 1,000 mcg 12/02/20 09:00 12/02/20 11:20 Cyanocobalamin (Vitamin B-12) 1,000 Mcg Tablet PO Not Given DAILY [facility] Docusate Sodium 100 mg 12/01/20 18:45 Docusate Sodium 100 Mg Capsule PO Q12H PRN Constipation Ondansetron HCl 4 mg 12/01/20 18:45 Ondansetron Hcl 4 Mg/2 Ml Vial IVPUSH Q8H PRN Nausea and Vomiting Sodium Chloride 3 ml 12/02/20 00:00 12/02/20 11:20 0.9 % Sodium Chloride Flush 3 Ml Syringe IVFLUSH 3 ml QSHIFT [facility] Administration Home Medications Medication Instructions Recorded Confirmed Last Taken Type aspirin 1 tab PO DAILY 12/01/20 12/01/20 Unknown History atorvastatin 1 tab PO DAILY 12/01/20 12/01/20 Unknown History cyanocobalamin (vitamin B-12) 1 tab PO DAILY 12/01/20 12/01/20 Unknown History docusate sodium [DOK] 1 cap PO Q12H PRN 12/01/20 12/01/20 Unknown History furosemide 1.5 tab PO DAILY 12/01/20 12/01/20 Unknown History lisinopril 1 tab PO DAILY 12/01/20 12/01/20 Unknown History spironolactone 0.5 tab PO DAILY 12/01/20 12/01/20 Unknown History triamcinolone acetonide appl TOPICAL BID 12/01/20 Unknown History Physical Exam Vital Signs: Vital Signs: Last Vital Signs Temp 98 F 12/01/20 20:53 Pulse 98 12/02/20 12:52 Resp 18 12/02/20 12:52 BP 115/72 12/02/20 12:52 Pulse Ox 95 12/02/20 12:52 Body Mass Index 26.6 He was alert and awake with the normal spontaneity of speech fluency comprehension and affect. He was following commands. There was no obvious focal weakness. Because of COVID related concerns and emergency room situation examination was limited. Results Labs CBC & Chem 7: 12/02/20 06:31 12/02/20 07:47 Labs: Short CBC 12/01/20 12/02/20 Range/Units 15:49 06:31 WBC 8.7 9.7 (4.8-10.8) X10*3/uL Hgb 15.5 17.0 (14.0-18.0) g/dl Hct 47.9 51.4 (42-52) % Plt Count 204 142 L D (160-400) X10*3/uL BMP 12/01/20 12/02/20 15:49 07:47 Sodium 141 141 Potassium 3.6 4.6 D Chloride 106 103 Carbon Dioxide 27 26 BUN 7 L 12 D Creatinine 0.87 1.05 Calcium 8.1 L 9.3 D Liver Function 12/01/20 Range/Units 15:49 Total Bilirubin 0.8 (0.0-1.0) mg/dL Direct Bilirubin 0.3 (0.0-0.5) mg/dL AST 12 (5-37) U/L ALT 15 (0-40) U/L Alkaline Phosphatase 98 (39-117) U/L Albumin 3.3 L (3.5-5.0) g/dL His noncontrast head CT and MRI brain reviewed. It revealed an acute to subacute left basal ganglia area small infarct and extensive chronic microvascular disease and a chronic right posterior cerebral artery infarct. Microbiology Microbiology Results: Microbiology 12/01/20 Unknown Urine clean catch - Clean Catch Midstream Urine Culture - Final Assessment and Plan (1) Cerebral infarction: Status: Acute 75 years old man with probably subacute left basal ganglia areas small infarct with imaging revealing extensive microvascular ischemic changes and a large right chronic posterior cerebral artery infarct. There was also cerebral atrophy. Combination of all these factors could result in multifactorial dementia confusion and unsteadiness. At this time my suggestion was to rule out infection, hydrate him, treat him with anti-platelet agent, statin and any other vascular risk control. Exact etiology of this much vascular disease was unclear at this time. His carotid ultrasound was okay and he was not hypertensive. Maybe a CTA of brain can help to rule out intracranial disease, which is not uncommon in this at the knees today. Procedures Date of Service Date of Service: 12/02/20
--- NOTE | 2020-12-02 15:24 | MHC.STROKE ---
Addendum entered by Fior Villalta RN 12/03/20 11:43: I MET WITH THE PATIENT AND HAD THE AIR CONDITIONING SHEET METAL INSTALLER TARA PRESENT. I REVIEWED HIS DIAGNOSIS OF THE RIGHT THALAMIC STROKE, SHOWED HIM THE LOCATION. I DISCUSSED THE OLD STROKES AND HE WAS UNAWARE OF THEM. I DID TEST THE VISUAL BOWEN AND THERE IS A VERY MINIMAL LEFT HEMIANOPSIA BUT HE HAS BEEN ACCOMMODATING FOR THAT DEFICIT. I ANSWERED ALL OF HIS QUESTIONS AND REVIEWED HIS RISK FACTORS. Original Note: 12/01/20 1332 EMS PRE-NOTIFIED FOR LETHARGY AND WEAKNESS. TODAY 12/02/20 MRI + FOR RIGHT THALAMIC ISCHEMIC STROKE WITH HEMORRHAGIC CONVERSION. I REVIEWED MRI WITH DR NYE AND PATIENT CAN STILL HAVE ASPIRIN AND VTE PROPHLAXIS WITH LOVENOX. THE NIHSS = 2 FOR ATAXIA. I PERFORMED A SECOND SWALLOW SCREEN AND HE PASSED. I ALSO INITIATED STROKE EDUCATION, I SHOWED HIM THE MRI IMAGE OF THE STROKE. I WILL REINFORCE WITH THE AIR CONDITIONING SHEET METAL INSTALLER TOMORROW. DR NYE IS RECOMMENDING A CTA HEAD. PATIENT DOES HAVE A HISTORY OF SEVERAL PRIOR STROKES, HE ALSO WOULD LIKE TO HYDRATE HIM. I DID RELAY THIS INFORMATION TO THE BILLING COLLECTIONS SPECIALIST FRED. AVOID HYPOTENSION. SEE PT RECOMMENDATIONS. I WILL CONTINUE TO FOLLOW.
[2020-12-02] MEDS: iohexoL 350 MG/ML 100 ML INFUS..BTL IV (18:08)
[2020-12-02] MEDS: Enoxaparin Sodium 40 MG/0.4 ML SYRINGE SUBCUT (20:52)
--- NOTE | 2020-12-02 23:58 | PC.NURSE ---
Report taken from Melissa, this RN resuming care. Pt sleeping in bed at this time, NPO due to failed swallow eval. VSS, awaiting bed assignment. Continue to monitor.
[2020-12-03] VITALS (8 sets, daily range): BP systolic 101–136; BP diastolic 59–71; PULSE 68–87; RESP 15–21; TEMP 36–37.1; O2SAT 91–98; BMI 25.2
[2020-12-03] MEDS: 0.9 % Sodium Chloride Flush 3 ML SYRINGE IVFLUSH ×3 (00:15→18:23)
--- NOTE | 2020-12-03 04:55 | PC.NURSE ---
Report given to IMC RN. [facility]MC coming to the ED to prepare pt for transport to floor due to severe staffing shortage and no techs on the floor in the ED. stem processing machine operator aware.
[2020-12-03] MEDS: Aspirin 81 MG TAB.CHEW PO (13:28)
[2020-12-03] MEDS: Cyanocobalamin (Vitamin B-12) 1,000 MCG TABLET 1000 MCG PO (13:28)
[2020-12-03] MEDS: Atorvastatin Calcium 80 MG TABLET PO (13:28)
--- NOTE | 2020-12-03 17:52 | HO.PM.IMPN ---
Subjective Subjective Date of Service: 12/03/20 Interval History: seen and examined this AM no complaints oriented to place but not situation Physical Exam Vital Signs: Vital Signs: Last Vital Signs Temp 98.7 F 12/03/20 15:49 Pulse 75 12/03/20 15:49 Resp 15 12/03/20 15:49 BP 122/67 12/03/20 15:49 Pulse Ox 94 12/03/20 15:49 Body Mass Index 25.2 Const: Other: General - no acute distress, appears comfortable Cardiovascular - regular rate and rhythm, S1-S2 Lungs - normal respiratory effort, clear to auscultation bilaterally, no wheezing Abdomen - soft, nontender, no rebound or guarding Extremities - no edema bilaterally Neuro - awake and alert, oreinted to place, no obvious focal deficits Objective Data Current Medications Generic Name Dose Route Start Last Admin Trade Name Freq PRN Reason Stop Dose Admin Acetaminophen 650 mg 12/01/20 18:45 Acetaminophen 325 Mg Tablet PO Q6H PRN Pain, Mild (Pain Scale 1-3) Aspirin 81 mg 12/03/20 09:00 12/03/20 13:28 Aspirin 81 Mg Tab.Chew PO 81 mg DAILY BC Administration Atorvastatin Calcium 80 mg 12/02/20 09:00 12/03/20 13:28 Atorvastatin Calcium 80 Mg Tablet PO 80 mg DAILY BC Administration Cyanocobalamin 1,000 mcg 12/02/20 09:00 12/03/20 13:28 Cyanocobalamin (Vitamin B-12) 1,000 Mcg Tablet PO 1,000 mcg DAILY BC Administration Docusate Sodium 100 mg 12/01/20 18:45 Docusate Sodium 100 Mg Capsule PO Q12H PRN Constipation Enoxaparin Sodium 40 mg 12/02/20 20:00 12/02/20 20:52 Enoxaparin Sodium 40 Mg/0.4 Ml Syringe SUBCUT 40 mg Q24H BC Administration Ondansetron HCl 4 mg 12/01/20 18:45 Ondansetron Hcl 4 Mg/2 Ml Vial IVPUSH Q8H PRN Nausea and Vomiting Sodium Chloride 3 ml 12/02/20 00:00 12/03/20 13:30 0.9 % Sodium Chloride Flush 3 Ml Syringe IVFLUSH 3 ml QSHIFT BC Administration Labs CBC & Chem 7: 12/02/20 06:31 12/02/20 07:47 Microbiology Microbiology Results: Microbiology 12/01/20 Unknown Urine clean catch - Clean Catch Midstream Urine Culture - Final Assessment and Plan (1) Encephalopathy: Status: Acute Assessment and Plan: 75 yo M admitted for CVA 1. Acute/Subacute CVA pt/ot neuorology eval statin, aspirain 2. HTN bp held initially to allow for permissive htn bp normotensive off meds, will continue to hold 3. CAD asa/statin 4. B12 def continue po replacement Full Code D/w the step-daughter (Vani, who reports she is HCP) @ [phone]
[2020-12-03] MEDS: Enoxaparin Sodium 40 MG/0.4 ML SYRINGE SUBCUT (19:36)
[2020-12-04] MEDS: 0.9 % Sodium Chloride Flush 3 ML SYRINGE IVFLUSH ×2 (00:01→09:14)
[2020-12-04 03:56] VITALS: BP 135/88; PULSE 80; RESP 16; TEMP 36.4; O2SAT 96
[2020-12-04 08:00] VITALS: BP 105/69; PULSE 75; RESP 16; TEMP 36.1; O2SAT 94
--- NOTE | 2020-12-04 08:59 | MHC.CM.PN ---
i spoke c pt's HCP/daughter - inna at ph: [phone]. she cannot offer any significant supervision for her father as she works a job and has a family. unfortunately, she tells me that her father lives c [place].o. who is under psychiatric care and is not a reliable caregiver for her father. based on these facts inna has requested her father go to str, refs. have been made and we are waiting for a bed offer. cm to cont. to follow.
--- NOTE | 2020-12-04 09:03 | P.DS_ITS ---
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 (4) Lesion of lung: Status: Acute DS: Medications Discharge Medications Home Medications: Home Medications Medication Instructions Recorded Confirmed aspirin 1 tab PO DAILY 12/01/20 12/01/20 atorvastatin 1 tab PO DAILY 12/01/20 12/01/20 cyanocobalamin (vitamin B-12) 1 tab PO DAILY 12/01/20 12/01/20 docusate sodium [DOK] 1 cap PO Q12H PRN 12/01/20 12/01/20 furosemide 1.5 tab PO DAILY 12/01/20 12/01/20 lisinopril 1 tab PO DAILY 12/01/20 12/01/20 spironolactone 0.5 tab PO DAILY 12/01/20 12/01/20 triamcinolone acetonide appl TOPICAL BID 12/01/20 DS: Summary Hospital Course Hospital Course: Patient presented with acute encephalopathy which was initially felt secondary to acute urinary tract infection, however this was ruled out with a negative urine culture. Further workup for his confusion was ensued. He underwent an MRI of the brain which confirmed acute stroke in the right thalamus with mild associated hemorrhage. Neurology was consulted and recommended aspirin, statin and control other vascular risk factors. CTA of the head and neck was also checked which showed the carotid arteries were without any significant stenosis. Head portion was of poor quality. Echo showed reduced LV and regional wall motion abnormalities, consistent with his known prior CT. Patient was evaluated by Physical therapy and short-term rehab was recommended. Of note, patient's imaging studies did find an incidental 2 cm lesion in the lung. Upon further discussion with the patient's daughter she reports that she recalls there being a prior x-ray or CT scan with similar findings. Repeat CT scan of the lungs was recommended by Radiology and will be deferred to the outpatient setting. Time Spent with Patient Time attestation: Total time spent providing and/or coordinating discharge services: Discharge coordination time: Greater than 30 minutes Quality: Stroke Pt Provided Written Stroke Discharge Instructions: Patient given written information Physical Exam Vital Signs: Vital Signs: Last Vital Signs Temp 97 F 12/04/20 08:00 Pulse 75 12/04/20 08:00 Resp 16 12/04/20 08:00 BP 105/69 12/04/20 08:00 Pulse Ox 94 12/04/20 08:00 Body Mass Index 25.2 Const: Other: General - no acute distress, appears comfortable Cardiovascular - regular rate and rhythm, S1-S2 Lungs - normal respiratory effort, clear to auscultation bilaterally, no wheezing Abdomen - soft, nontender, no rebound or guarding Extremities - no edema bilaterally Neuro - awake and alert, oreinted to place but not situation, no obvious focal deficits, speech appears normal DS: Data Imaging MRI - head: Radiologist's impression: IMPRESSION: Acute infarct within the right thalamus with mild associated hemorrhage. Additional small acute lacunar infarct in the left caudate. Chronic cortical infarct in the right occipital lobe and chronic lacunar infarcts in bilateral basal ganglia, left thalamus, and cerebellar hemispheres. Background changes of advanced chronic microangiopathy. cta head neck: Radiologist's impression: Markedly suboptimal study with extensive patient motion artifact. CT head and neck: 1. The study redemonstrates chronic infarct changes in the right occipital lobe. There is an area of low-attenuation in the right thalamus corresponding to the area of acute infarction. 2. There is diffuse volume loss and there are extensive chronic microvascular ischemic changes. 3. There are no intracranial masses or areas of abnormal enhancement. 4. There is a 2 cm mass at the superior segment of the right lower lobe. Recommend CTA scan of the chest with contrast for further assessment. CT head and neck: 1. The carotid and the vertebral arteries appear patent without significant focal stenosis in the neck. The carotid bifurcations appear normal. 2. Evaluation of the intracranial circulation is markedly suboptimal, and pathology cannot be excluded on the basis of this study. Recommend repeat CTA, at least of the head, with better sedation. Discharge Plan Discharge Patient Disposition: [facility] Referrals: Ludin Anderson MD [Primary Care Provider] - Discharge Medications: Continued cyanocobalamin (vitamin B-12) 1,000 mcg tablet extended release 1 tab PO DAILY RF: 0 atorvastatin 80 mg tablet 1 tab PO DAILY RF: 0 aspirin 81 mg tablet,delayed release (DR/EC) 1 tab PO DAILY RF: 0 triamcinolone acetonide 0.1 % cream topical BID RF: 0 spironolactone 25 mg tablet 0.5 tab PO DAILY RF: 0 docusate sodium [DOK] 100 mg capsule 1 cap PO Q12H PRN (Reason: Constipation) RF: 0 lisinopril 5 mg tablet 1 tab PO DAILY RF: 0 furosemide 20 mg tablet 1.5 tab PO DAILY RF: 0 Discharge Orders: Discharge Order (Routine); Ordered 12/04/20 Ordered By: Leonel Santos Diet: low fat, low cholesterol Activity on Discharge: As tolerated Stand Alone Forms: Patient Portal Discharge page Care Plan Goals: To stay healthy and out of the hospital. Health Concerns: Stroke Plan of Treatment: Continue aspirin / statin SNF for therapy
[2020-12-04] MEDS: Atorvastatin Calcium 80 MG TABLET PO (09:14)
[2020-12-04] MEDS: Aspirin 81 MG TAB.CHEW PO (09:14)
[2020-12-04] MEDS: Cyanocobalamin (Vitamin B-12) 1,000 MCG TABLET 1000 MCG PO (09:14)
[2020-12-04 11:04] VITALS: BP 105/69; PULSE 75; O2SAT 94
[2020-12-04 12:00] VITALS: BP 112/68; PULSE 86; RESP 17; TEMP 36.3; O2SAT 94
--- NOTE | 2020-12-04 12:04 | MHC.SLORD ---
Per RN, pt tolerating recommended diet at this time. HYDROELECTRIC PRODUCTION MANAGER continues to recommend CHOPPED/ADVANCED (NDD3) solids and THIN liquids via controlled cup sip ONLY, as pt is impulsive and will chug beverages. Pills whole in liquids or puree depending on pt's tolerance/preference. Per RN, pt took meds whole in liquid overnight without difficulty. ST no longer warranted at this level of care. Please re-refer if HYDROELECTRIC PRODUCTION MANAGER can be of further assistance. Name: Kane Block Date of : 1945 Age: 75 Date of Registration: 12/01/20 Speech Language Pathology Order Status:
[2020-12-04 12:13] LABS: COVID-19 Test Negative (Negative); IDNOW Serial# 9DD0AD1C
--- NOTE | 2020-12-04 15:37 | MHC.CM.PN ---
pt's daughter/hcp - inna requested ref to [facility] be made, this was done, pt was accepted and transported via [facility] at 3 pm. pt, pt's daughter, r.n. and are aware of this dc plan. cm cont. to follow.
== END 2020-12-04 16:00 | disposition skilled nursing facility (03) | DRG 64 ==
LOC: HO.ED 17:16 → HO.EDOVER 19:19 → HO.ICU 12-02 19:22 → HO.EDOVER 12-03 00:16 → HO.S3 12-03 03:48
PROVIDERS: Nurse Practitioner Acute Care; Physician Assistant; Admitting Provider Family Medicine; Emergency Provider Internal Medicine; PCP Internal Medicine; Visit Provider Family Medicine
DX: I63.89 Other cerebral infarction (principal); I61.8 Other nontraumatic intracerebral hemorrhage; G93.40 Encephalopathy, unspecified; I25.10 Atherosclerotic heart disease of native coronary artery without angina pectoris; Z98.61 Coronary angioplasty status; F03.90 Unspecified dementia, unspecified severity, without behavioral disturbance, psychotic disturbance, mood disturbance, and anxiety; R91.1 Solitary pulmonary nodule; F17.210 Nicotine dependence, cigarettes, uncomplicated; I10 Essential (primary) hypertension; R53.1 Weakness; Z71.6 Tobacco abuse counseling; Z20.822 Contact with and (suspected) exposure to COVID-19; Z79.82 Long term (current) use of aspirin; Z79.899 Other long term (current) drug therapy
CPT/HCPCS: 0241U; 36415; 70450; 70496; 70498; 70551; 71045; 80048; 80061; 80076; 80307; 81001; 81003; 82140; 82728; 83615; 83690; 83735; 83880; 84145; 84484; 85025; 85610; 85730; 86140; 87086; 87635; 92610; 93005; 93306; 93880; 96365; 97110; 97116; 97162; 97166; 99285; J0696; J1650; Q9967

== ENCOUNTER 2021-01-04 12:02 | Outpatient (REF) | payer MEDICARE, MEDICAID, SELFPAY ==
[2021-01-04 12:31] LABS: Creatinine Urine 152.07 mg/dL
== END 2021-01-04 12:03 | disposition home or self-care (01) ==
LOC: HO.LNP 12:02
PROVIDERS: Visit Provider Internal Medicine
DX: E11.65 Type 2 diabetes mellitus with hyperglycemia (principal)
CPT/HCPCS: 82043

== ENCOUNTER 2021-01-17 09:30 | Outpatient (REF) | payer MEDICARE, MEDICAID, SELFPAY ==
[2021-01-17 09:52] LABS: Estimated Average Glucose 295 mg/dL; Hemoglobin A1c % 11.9 %
[2021-01-17 10:12] LABS: Alanine Aminotransferase 14 U/L (0-40); Albumin Level 3.3 g/dL (3.5-5.0); Alkaline Phosphatase 78 U/L (39-117); Anion Gap 11 (12-20); Aspartate Amino Transferase 13 U/L (5-37); Blood Urea Nitrogen 10 mg/dL (9-16); Calcium 8.6 mg/dL (8.4-10.2); Carbon Dioxide 26 mmol/L (22-29); Chloride 110 mmol/L (96-108); Cholesterol 89 mg/dL; Estimated Glomerular Filt Rate > 60; Glucose Fasting 227 mg/dL (60-99); HDL Cholesterol 31 mg/dL; LDL Cholesterol Calculated 49 mg/dl; Potassium 4.4 mmol/L (3.3-5.1); Sodium 143 mmol/L (135-145); Total Protein 5.9 g/dL (6.5-8.0); Triglycerides 48 mg/dL
[2021-01-17 10:21] LABS: Bilirubin Total 0.3 mg/dL (0.0-1.0)
== END 2021-01-17 09:31 | disposition home or self-care (01) ==
LOC: HO.LNP 09:30
PROVIDERS: Visit Provider Internal Medicine
DX: E11.65 Type 2 diabetes mellitus with hyperglycemia (principal); E78.5 Hyperlipidemia, unspecified; I10 Essential (primary) hypertension
CPT/HCPCS: 80053; 80061; 83036

== ENCOUNTER 2021-02-13 14:49 | Outpatient (REF) | payer MEDICARE, MEDICAID, SELFPAY ==
[2021-02-13 15:18] LABS: Glucose Urine UA 500 MG/DL (NEG); Leukocyte Esterase Urine NEG (NEG); Nitrite Urine NEG (NEG); PH 5.5 (5.0-8.0); Specific Gravity - Urine 1.025 (1.005-1.025); Urine Blood TRACE (NEG); Urine Ketones NEG (NEG); Urine Protein NEG (NEG-TRACE)
[2021-02-13 15:24] LABS: Appearance Urine CLEAR; Color Urine YELLOW
[2021-02-13 15:51] LABS: Squamous Epithelial Cell Urine 1+ /LPF; WBC Urine 0 /HPF (0-4)
== END 2021-02-13 14:50 | disposition home or self-care (01) ==
LOC: HO.LNP 14:49
PROVIDERS: Visit Provider Internal Medicine
DX: E11.65 Type 2 diabetes mellitus with hyperglycemia (principal)
CPT/HCPCS: 81001; 81003; 87086

== ENCOUNTER 2021-04-29 15:09 | Outpatient (REF) | payer MEDICARE, MEDICAID, SELFPAY ==
--- NOTE | ~2021-04-29 | CT_ITS ---
EXAMINATION: CT CHEST WITHOUT CONTRAST CLINICAL INFORMATION: Pulmonary nodule COMPARISON: Previous chest CT June 2014 and chest x-rays most recent November 2020 TECHNIQUE: Multidetector volumetric CT imaging of the chest was done. Axial MIP volume rendering provided. Sagittal and coronal reformatted images were obtained. This CT examination was performed using dose optimization techniques as appropriate, variously including the following: *Automated exposure control *Adjustment of mA and/or kV according to patient size (this includes techniques or standardized protocols for targeted exams where dose is matched to indication/reason for exam; i.e. extremities or head) *Use of iterative reconstruction technique DLP: 107 mGy-cm FINDINGS: LUNGS: There is a 2.5 x 3 x 4.5 cm in AP transverse and longitudinal dimension superior segment right lower lobe pulmonary nodule. This is new from old chest CT scan from 2013 and is gradually increasing compared to chest x-rays. There is focal cystic bronchiectasis seen in the left lower lobe that is stable. The lungs are otherwise clear. No endobronchial or endotracheal lesion is seen MEDIASTINUM: There are small mediastinal lymph nodes. No enlarged lymph nodes are seen. The heart is enlarged. There is coronary artery calcification. There is no pericardial effusion. The thoracic aorta is upper normal in size. PLEURA: There is no pleural effusion. No pleural mass or thickening. AXILLA: There is asymmetric right-sided gynecomastia.. There are no enlarged axillary lymph nodes. UPPER ABDOMEN: There is high attenuation seen dependently in the gallbladder suggestive of small gallstone. There is fullness of the right renal pelvis, possibly representing an extrarenal pelvis. There is fullness of the left adrenal gland. OSSEOUS STRUCTURES: There are degenerative changes of the spine. CT/CT chest wo con IMPRESSION: New oval-shaped nodule/mass in the superior segment of the right lower lobe worrisome for neoplasm. Stable focal cystic bronchiectasis in the left lower lobe. Enlarged heart. Coronary artery calcification. Asymmetric right-sided gynecomastia. Clinical correlation and follow-up mammogram or ultrasound recommended.
[2021-04-29 16:11] LABS: Estimated Average Glucose 166 mg/dL; Hemoglobin A1c % 7.4 %
[2021-04-29 16:21] LABS: Alanine Aminotransferase 21 U/L (0-40); Albumin Level 4.2 g/dL (3.5-5.0); Alkaline Phosphatase 94 U/L (39-117); Anion Gap 12 (12-20); Aspartate Amino Transferase 17 U/L (5-37); Bilirubin Total 0.4 mg/dL (0.0-1.0); Blood Urea Nitrogen 16 mg/dL (9-16); Calcium 9.7 mg/dL (8.4-10.2); Carbon Dioxide 28 mmol/L (22-29); Chloride 106 mmol/L (96-108); Cholesterol 109 mg/dL; Estimated Glomerular Filt Rate > 60; Glucose Random 113 mg/dL (60-115); HDL Cholesterol 34 mg/dL; LDL Cholesterol Calculated 62 mg/dl; Potassium 4.1 mmol/L (3.3-5.1); Sodium 142 mmol/L (135-145); Total Protein 7.4 g/dL (6.5-8.0); Triglycerides 66 mg/dL
[2021-04-29 16:48] LABS: Creatinine Urine 24.42 mg/dL; Microalbumin Urine < 5.0 mg/L
== END 2021-04-29 15:10 | disposition home or self-care (01) ==
LOC: HO.CT 15:09
PROVIDERS: PCP Internal Medicine; Visit Provider Internal Medicine
DX: E11.65 Type 2 diabetes mellitus with hyperglycemia (principal); E78.5 Hyperlipidemia, unspecified; I10 Essential (primary) hypertension; R91.1 Solitary pulmonary nodule
CPT/HCPCS: 36415; 71250; 80053; 80061; 82043; 83036

== ENCOUNTER 2021-06-18 14:23 | Outpatient (REF) | payer MEDICARE, MEDICAID, SELFPAY ==
--- NOTE | ~2021-06-18 | MM_ITS ---
EXAMINATION: MM DIAGNOSTIC DIGITAL BREAST TOMOSYNTHESIS, BILATERAL US DIAGNOSTIC ULTRASOUND BREAST, BILATERAL CLINICAL INFORMATION: 75-year-old male with asymmetric gynecomastia suggested on recent CT chest. Otherwise, no prior breast imaging. COMPARISON: CT chest noncontrast 04/29/2021, 06/13/2014. TECHNIQUE: Digital breast tomosynthesis is performed in both the craniocaudal and mediolateral oblique views along with computer-aided detection (CAD). Synthesized 2D images are generated from the tomosynthesis. Ultrasound bilateral breast ultrasound is targeted to the retroareolar and periareolar regions. Grayscale imaging and color Doppler are performed without and with harmonics. FINDINGS: There are scattered areas of fibroglandular density (ACR BI-RADS breast composition Category b). There is gynecomastia type parenchymal pattern, greater on the right. There is no mass or architectural abnormality. No abnormal calcifications. The skin contours are smooth. Ultrasound demonstrates gynecomastia type parenchymal pattern, greater on right, similar to the mammography. There is no cystic or solid mass or focal duct ectasia. No skin thickening or edema tracking in the soft tissue planes. Results are discussed with the patient and family at time of visit. Also discussed are the other suspicious findings described on the chest CT. Family notes that they have an appointment with thoracic surgeon later this month. MM/MM tomosynthesis diagnostic BI IMPRESSION: Asymmetric gynecomastia, greater on right. ASSESSMENT: BI-RADS 2: Benign RECOMMENDATION: Patient should be managed as needed based on the clinical impression.
== END 2021-06-18 14:24 | disposition home or self-care (01) ==
LOC: HO.MAMMO 14:23
PROVIDERS: PCP Internal Medicine; Visit Provider Internal Medicine
DX: N62 Hypertrophy of breast (principal)
CPT/HCPCS: 76642; 77062; 77066

== ENCOUNTER → 2021-07-04 11:10 | Outpatient (BNVA) | payer MEDICARE, MEDICAID, SELFPAY | PROVIDERS: PCP Internal Medicine; Visit Provider Surgery | DX: R91.8 Other nonspecific abnormal finding of lung field (principal); F17.210 Nicotine dependence, cigarettes, uncomplicated; Z79.899 Other long term (current) drug therapy; Z71.6 Tobacco abuse counseling | CPT/HCPCS: 99212 ==

== ENCOUNTER 2021-07-11 13:39 | Outpatient (REF) | payer MEDICARE, MEDICAID, SELFPAY ==
--- NOTE | 2021-07-11 16:38 | PFT_ITS ---
FLOWS: FEV1 36% of predicted at 0.79 L. FVC 46% of predicted at 1.33 L. FEV1 to FVC ratio of 0.59. No bronchodilator testing was performed. LUNG VOLUMES: The patient was unable to perform lung volume maneuvers correctly. Diffusion capacity is moderately decreased. IMPRESSION: Severe obstructive ventilatory defect. The patient was unable to perform lung volume maneuver. Decreased diffusion capacity suggests emphysema. MD AUGUSTA Bello/MODL / [id number]
== END 2021-07-11 13:40 | disposition home or self-care (01) ==
LOC: HO.RESP 13:39
PROVIDERS: PCP Internal Medicine; Visit Provider Surgery
DX: R19.8 Other specified symptoms and signs involving the digestive system and abdomen (principal)
CPT/HCPCS: 94010; 94729

== ENCOUNTER 2021-07-29 11:25 | Outpatient (REF) | payer MEDICARE, MEDICAID, SELFPAY ==
--- NOTE | ~2021-07-29 | PE_ITS ---
EXAMINATION: Fluorine-18 FDG PET/CT Scan CLINICAL INDICATION: Initial treatment management. Right lower lobe lung mass. PROCEDURE: 33 minutes following the intravenous administration of 17.0 mCi of fluorine 18 FDG, images from the base of the skull to the mid thighs were obtained using a combined PET/CT scanner with CT scan based attenuation correction. No oral contrast was administered. No intravenous contrast was administered. Transverse, coronal, sagittal, and volume reconstruction projections were obtained. The patient's blood glucose as determined by a finger stick, was 89 mg/dl immediately prior to injection. Total CT exam dose-length product 403.55 mGy-cm * These CT images were obtained using dose optimization techniques as appropriate, variously including the following: Automated exposure control * Adjustment of mA and/or kV according to patient size (this includes techniques or standardized protocols for targeted exams where dose is matched to indication/reason for exam; i.e. extremities or head) * Use of iterative reconstruction technique COMPARISON: No previous PET/CT scan is available for comparison. CT scan of the chest dated 04/29/2021 is available for comparison. The diagnostic CT scan of the abdomen and pelvis, dated 07/05/2014, is available for comparison. FINDINGS: NECK AND VISUALIZED HEAD: No foci of abnormal FDG activity are noted. The distribution of FDG activity is physiological. There is no cervical lymphadenopathy. THORAX: There is an FDG avid mass abutting the posterior pleura in the superior segment of the right lower lobe, and SUVmax 6.2, slice 81/267. This is centrally photopenic likely due to necrosis. On the CT images this measures 3.7 x 3.5 cm in largest transverse dimensions and approximately 3.4 cm cephalocaudad. It does not appear significantly changed in appearance from the 04/29/[address] scan. No additional pulmonary nodules are visualized. There is minimal scarring or atelectasis anteriorly in the lingula and posteriorly in the left lower lobe. There is no pleural or pericardial fluid or pneumothorax. There is no mediastinal, supraclavicular, or axillary lymphadenopathy. ABDOMEN AND PELVIS: There is diffusely increased FDG activity of varying intensities present throughout the gastrointestinal tract, with foci of more prominently increased activity present in the transverse colon. The liver and spleen are unremarkable. There is minimal dependent sludge present in the gallbladder, but the gallbladder is otherwise unremarkable. An extrarenal pelvis is present on the right, but the kidneys are otherwise unremarkable. The jejunal glands are unremarkable. The pancreas is mildly atrophic but otherwise unremarkable. There is no retroperitoneal, mesenteric, pelvic or inguinal lymphadenopathy. The pelvic organs are unremarkable. MUSCULOSKELETAL: There is mildly increased activity diffusely in the left shoulder, most prominently in the glenohumeral articulation, likely arthritic. There are no other foci of abnormal FDG activity in the osseous structures. Some residual radiopharmaceutical at the injection site in the right antecubital fossa is noted. There are degenerative changes in the spine but no suspicious sclerotic or lytic lesions are visualized. VASCULAR: Vascular calcifications including coronary are noted. PET/PET CT fusion skull to thigh IMPRESSION: 1. 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 There is some central photopenia, most likely due to central necrosis. 2. No additional abnormalities suspicious for metastatic or other malignant lesions are noted. 3. Vascular calcifications including coronary.
== END 2021-07-29 11:26 | disposition home or self-care (01) ==
LOC: HO.PET 11:25
PROVIDERS: Visit Provider Surgery
DX: Z13.89 Encounter for screening for other disorder (principal)

== ENCOUNTER → 2021-08-15 09:14 | Outpatient (BNVA) | payer MEDICARE, MEDICAID, SELFPAY | PROVIDERS: PCP Internal Medicine; Visit Provider Surgery | DX: R91.8 Other nonspecific abnormal finding of lung field (principal); J44.9 Chronic obstructive pulmonary disease, unspecified; F17.200 Nicotine dependence, unspecified, uncomplicated; Z79.899 Other long term (current) drug therapy; Z79.82 Long term (current) use of aspirin | CPT/HCPCS: 99212 ==

== ENCOUNTER → 2021-09-19 10:34 | Outpatient (BNVA) | payer MEDICARE, MEDICAID, SELFPAY | PROVIDERS: PCP Internal Medicine; Visit Provider Surgery | DX: C34.31 Malignant neoplasm of lower lobe, right bronchus or lung (principal); F17.210 Nicotine dependence, cigarettes, uncomplicated; Z79.899 Other long term (current) drug therapy; Z79.82 Long term (current) use of aspirin | CPT/HCPCS: 99212 ==

== ENCOUNTER 2022-02-09 15:56 | Outpatient (REF) | payer MEDICARE, MEDICAID, SELFPAY ==
--- NOTE | 2022-02-09 | PFT_ITS ---
FLOWS: The patient was unable to perform pulmonary function test maneuvers, despite several attempts. Test was aborted. IMPRESSION: Aborted pulmonary function test. MD AUGUSTA Bello/KJ / [id number]
== END 2022-02-09 15:57 | disposition home or self-care (01) ==
LOC: HO.RESP 15:56
PROVIDERS: PCP Internal Medicine; Visit Provider Radiology Radiation Oncology
DX: Z13.89 Encounter for screening for other disorder (principal)

== ENCOUNTER 2022-07-16 11:40 | Outpatient (RCR) | payer MEDICARE, MEDICAID, SELFPAY ==
[2021-09-29 11:44] VITALS: TEMP 37; O2SAT 94
--- NOTE | 2021-09-29 12:39 | PM.HEMONCCN ---
Subjective - Subjective Chief complaint: Consult for: Squamous cell carcinoma of the right lung. Patient: new to practice Consult date: 09/29/21 Requesting Physician: Samreen. Primary Care Provider: Ludin Anderson MD Medical Summary: DIAGNOSIS: SQUAMOUS CELL CARCINOMA OF THE RIGHT LUNG. Right paratracheal and subcarinal lymph node biopsy negative. HPI - Consult Narrative Reason for consult: Consult for: Squamous cell carcinoma of the right lung. Narrative: Kane Block is a pleasant 75 year old gentleman, with severe dementia common and multiple comorbidities. He presented with symptoms of a cough and shortness of breath. A CT scan of the chest on 04/29, that revealed: New oval-shaped nodule/mass in the superior segment of the right lower lobe worrisome for neoplasm. Stable focal cystic bronchiectasis in the left lower lobe. Enlarged heart. Coronary artery calcification. Asymmetric right-sided gynecomastia. Clinical correlation and follow-up mammogram or ultrasound recommended. PET scan from07/29: His PET scan revealed: 1. 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 There is some central photopenia, most likely due to central necrosis. 2. No additional abnormalities suspicious for metastatic or other malignant lesions are noted. 3. Vascular calcifications including coronary. On 09/03 he underwent navigational bronchoscopy with fluoro now and transbronchial and endobronchial biopsies right lower lobe lung mass, washings right lower lobe superior segment, endobronchial ultrasound with biopsy multiple lymph node stations, by Dr. Jolley at [facility]. Pathology of the transthoracic needle biopsies right lower lobe lung mass, washings superior segment right lower lobe, revealed: Necrotic, non-small cell carcinoma, compatible with squamous cell carcinoma. Immunohistochemical stains: Negative for TTF 1, synaptophysin and chromogranin. Rare positivity for P40. Right paratracheal and subcarinal lymph node biopsy negative. He tells me he is here for a consultation. He has an appointment with radiation at [facility] on 10/14. ROS: He walks with the walker currently he is on a wheelchair. Her energy level has been low. He does not have any fever nor chills however his appetite has declined and he lost 30 lb in the past 3 months. Denies headache no dizziness however he is sleeping all the time. No CP, gets on SOB on exertion. Denies any abdominal pain nausea vomiting heartburn indigestion. Bowels are working without any gross blood in it. He does urinate a lot. Denies joint pains or muscle ache. His legs feel weak like cement. He is depressed. His girlfriend has psycho some attic issues. Sometimes he gets rashes on his feet likely related to fungal infection. FAMILY HISTORY: Denies any known family history of a malignancy. SOCIAL HISTORY: He worked at the [employer]. He is not . He is . He has 1 son. He used to smoke 2 pack a day. He is still smoking but a bit less. He is exposed to second-line smoke through his girlfriend. He used to drink heavily but 25 years ago. Review of Systems - Constitutional Reports no additional constitutional complaints, Reports anorexia, Reports daytime sleepiness, Reports fatigue, Reports lack of energy, Reports malaise, Denies stops breathing during sleep, Reports weight loss - Eyes Reports no additional eye complaints - ENT Reports no additional ear, nose, mouth, and throat complaints - Cardiovascular Reports no additional cardiovascular complaints - Respiratory Reports no additional respiratory complaints, Reports chest congestion, Denies hemoptysis, Reports dyspnea on exertion - Gastrointestinal Reports no additional gastrointestinal complaints, Denies loose stools, Denies nausea - Genitourinary Genitourinary: Reports no additional male genitourinary complaints, Reports frequent nighttime urination - Musculoskeletal Reports no additional musculoskeletal complaints - Integumentary/Breasts Skin/Breast: Reports no additional skin complaints - Neurologic Reports no additional neurologic complaints - Psychiatric Reports no additional psychiatric complaints - Endocrine Reports no additional endocrine complaints - Hematologic/Lymphatic Reports no additional hematologic/lymphatic complaints - Allergic/Immunologic Reports no additional allergic/immunologic complaints Oncology Screenings - ECOG Performance Status ECOG Performance Status: 2 [facility] Medical History: Medical History (Last Reviewed 09/29/21 @ 11:46 by Ashtyn Saleh) Asthma CAD (coronary artery disease) Cerebral infarction COPD (chronic obstructive pulmonary disease) Diabetes mellitus type 2, insulin dependent Encephalopathy GERD (gastroesophageal reflux disease) Gynecomastia Hyperlipidemia Hypertension Ischemic cardiomyopathy Right lower lobe lung mass Scrotal abscess Smoker TIA (transient ischemic attack) Tubular adenoma of colon Venous stasis dermatitis of both lower extremities Vitamin B 12 deficiency Functional capacity: uses cane/walker Patient : No Surgical History: Surgical History (Last Reviewed 09/29/21 @ 11:46 by Ashtyn Saleh) History of colonoscopy History of exploratory laparotomy History of heart artery stent History of hernia repair History of hydrocelectomy History of left inguinal hernia repair History of skin graft Social History: Social History (Last Updated 09/29/21 @ 11:47 by Ashtyn Saleh) Living Situation History: Household Members: Significant Other Housing: Apartment Do you presently have visiting nurse or other home services: No Alcohol History: Alcohol intake: former Alcohol History Details: Alcohol intake frequency: does not drink Tobacco History: Patient Tobacco Use Status: Current everyday Tobacco Tobacco use type: Cigarette Cigarette Packs Per Day: 0.5 Years Smoked: unknown Substance Use History: Use of substances other than those prescribed or required for medical reasons: No Nutrition Assessment: Patient : No Occupation Assessmet: service: No Current occupational status: retired Home Medications and Allergies Home Medications Medication Instructions Recorded Confirmed Type aspirin 81 mg tablet,delayed 1 tab PO DAILY 12/01/20 09/29/21 History release atorvastatin 80 mg tablet 1 tab PO DAILY 12/01/20 09/29/21 History cyanocobalamin (vitamin B-12) 1 tab PO DAILY 12/01/20 09/29/21 History 1,000 mcg tablet,extended release docusate sodium 100 mg capsule 1 cap PO Q12H PRN 12/01/20 09/29/21 History (DOK) furosemide 20 mg tablet 1.5 tab PO DAILY 12/01/20 09/29/21 History triamcinolone acetonide 0.1 % 0.1 appl TOPICAL BID 12/01/20 09/29/21 History topical cream Allergies Allergy/AdvReac Type Severity Reaction Status Date / Time No Known Allergies Allergy Mild Verified 09/29/21 11:47 Physical Exam Vital signs: Vital Signs Temp 98.6 F 09/29/21 11:44 Pulse Ox 94 09/29/21 11:44 Intake & Output 09/28/21 09/29/21 09/29/21 18:59 06:59 18:59 Other: Weight 66.4 kg [place] Weight in Grams 30608 Weight 66.4 kg - Constitutional Present: mild distress - Routine HEENT Exam Head: Present: normal inspection ENT: Present: mucous membranes moist - Routine Neck Exam Present: supple - Routine Respiratory Exam Present: decreased breath sounds - Routine Cardiovascular Exam Cardiovascular: Present: RRR, S1, S2 - Routine Extremities Exam Present: nontender - Routine Skin Exam Present: intact, normal turgor - Routine Neurological Exam Present: alert, oriented X3. Absent: motor deficit - Detailed Neurological Exam: Coma Scale Eye Opening: Spontaneous (4) Motor Response: Obeys commands (6) - Routine Psychiatric Exam Present: depressed Hem/Onc Consult Result - Labs CBC & Chem 7: 09/29/21 13:17 09/29/21 13:17 Assessment and Plan Patient Active problem list reviewed?: Yes (1) Cancer of lower lobe of right lung Status: Acute Assessment and plan: 75-year-old gentleman, a 2 pack per day smoker, with Alzheimer's and multiple comorbidities. Diagnosed with squamous cell carcinoma of the right lower lung. He initially presented with a CT scan of the chest on 04/29, that revealed: New oval-shaped nodule/mass in the superior segment of the right lower lobe worrisome for neoplasm. Stable focal cystic bronchiectasis in the left lower lobe. Enlarged heart. Coronary artery calcification. Asymmetric right-sided gynecomastia. Clinical correlation and follow-up mammogram or ultrasound recommended. His PET scan revealed: 1. 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 There is some central photopenia, most likely due to central necrosis. 2. No additional abnormalities suspicious for metastatic or other malignant lesions are noted. 3. Vascular calcifications including coronary. He had a navigational bronchoscopy with biopsy and endobronchial ultrasound for staging purposes which was done on 09/03. Pathology of the transthoracic needle biopsies right lower lobe lung mass, washings superior segment right lower lobe, revealed: Necrotic, non-small cell carcinoma, compatible with squamous cell carcinoma. Immunohistochemical stains: Negative for TTF 1, synaptophysin and chromogranin. Rare positivity for P40. Right paratracheal and subcarinal lymph node biopsy negative. PLAN: He has an appointment with radiation therapy on October 14 at [facility]. He can be a candidate for combined modality therapy: Radiation in combination with systemic chemotherapy. Will discussed the case with them and come up with the plan. In the meantime, will check baseline labs including tumor marker: CEA level. He will return in one month for a follow up. All their questions were answered to their satisfaction. Thanks, CC: Dr. Jolley. Dr. Terrell. - Time Spent With Patient Time Spent with Patient (in minutes): 35
[2021-09-29 13:19] LABS: MANUAL DIFF FLAG NO
[2021-09-29 13:23] LABS: Basophils Percent Auto 0.1 % (0-2); Eosinophils Absolute Auto 0.1 X10*3/uL (0.0-0.4); Eosinophils Percent Auto 0.5 % (0-4); Hematocrit 43.2 % (42.0-52.0); Imm Gran Abs Auto 0.03 X10*3/uL (0.00-0.03); Imm Gran Pct Auto 0.2 % (0.0-0.4); Lymphocytes Absolute Auto 1.5 X10*3/uL (1.2-4.9); Lymphocytes Percent Auto 11.8 % (20-40); Mean Corpuscular HGB Conc 32.4 g/dl (31.0-36.0); Mean Corpuscular Hemoglobin 30.7 pg (27.0-33.0); Mean Corpuscular Volume 94.7 fL (80.0-98.0); Mean Platelet Volume 10.3 fL (9.4-12.4); Monocytes Percent Auto 7.7 % (2-11); Neutrophils Absolute Auto 9.9 x10*3/uL (2.0-8.3); Neutrophils Percent Auto 79.7 % (45-73); Platelet Count 251 X10*3/uL (160-400); Red Blood Count 4.56 X10*6/uL (4.60-5.80); Red Cell Distribution Width 13.7 % (11.0-16.0); White Blood Count 12.4 X10*3/uL (4.8-10.8)
[2021-09-29 13:48] LABS: Alanine Aminotransferase 32 U/L (0-40); Albumin Level 3.3 g/dL (3.5-5.0); Alkaline Phosphatase 68 U/L (39-117); Anion Gap 14 (12-20); Aspartate Amino Transferase 19 U/L (5-37); Bilirubin Total 0.9 mg/dL (0.0-1.0); Blood Urea Nitrogen 9 mg/dL (9-16); Calcium 9.3 mg/dL (8.4-10.2); Carbon Dioxide 29 mmol/L (22-29); Chloride 101 mmol/L (96-108); Estimated Glomerular Filt Rate > 60; Glucose Random 164 mg/dL (60-115); Potassium 3.8 mmol/L (3.3-5.1); Sodium 140 mmol/L (135-145); Total Protein 6.8 g/dL (6.5-8.0)
--- NOTE | 2021-11-27 15:02 | HO.HEMONCSCH ---
CALLED PATIENT DUE TO HIM NOT ATTENDING TODAY'S APPT , DAUGHTER ANSWERED THE PHONE SHE SAID SHE TOTALLY FORGOT. I RESCHEDULED W/ PATIENT ON THE PHONE .
--- NOTE | 2021-12-16 14:25 | P.PNHO_ITS ---
Medical Summary - Medical Summary Date of Service: 12/16/21 Chief complaint: Follow-up for: Squamous cell carcinoma of the lung. Medical Summary: DIAGNOSIS: SQUAMOUS CELL CARCINOMA OF THE RIGHT LUNG. Right paratracheal and subcarinal lymph node biopsy negative. Interval History Interval history: Kane Block is a pleasant 75 year old gentleman, with severe dementia common and multiple comorbidities. He presented with symptoms of a cough and shortness of breath. A CT scan of the chest on 04/29, that revealed: New oval-shaped nodule/mass in the superior segment of the right lower lobe worrisome for neoplasm. Stable focal cystic bronchiectasis in the left lower lobe. Enlarged heart. Coronary artery calcification. Asymmetric right-sided gynecomastia. Clinical correlation and follow-up mammogram or ultrasound recommended. PET scan from07/29: His PET scan revealed: 1. 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 There is some central photopenia, most likely due to central necrosis. 2. No additional abnormalities suspicious for metastatic or other malignant lesions are noted. 3. Vascular calcifications including coronary. On 09/03 he underwent navigational bronchoscopy with fluoro now and transbronchial and endobronchial biopsies right lower lobe lung mass, washings right lower lobe superior segment, endobronchial ultrasound with biopsy multiple lymph node stations, by Dr. Jolley at [facility]. Pathology of the transthoracic needle biopsies right lower lobe lung mass, washings superior segment right lower lobe, revealed: Necrotic, non-small cell carcinoma, compatible with squamous cell carcinoma. Immunohistochemical stains: Negative for TTF 1, synaptophysin and chromogranin. Rare positivity for P40. Right paratracheal and subcarinal lymph node biopsy negative. He tells me he is here for a consultation. He has an appointment with radiation at [facility] on 10/14. ROS: He walks with the walker currently he is on a wheelchair. Her energy level has been low. He does not have any fever nor chills however his appetite has declined and he lost 30 lb in the past 3 months. Denies headache no dizziness however he is sleeping all the time. No CP, gets on SOB on exertion. Denies any abdominal pain nausea vomiting heartburn indigestion. Bowels are working without any gross blood in it. He does urinate a lot. Denies joint pains or muscle ache. His legs feel weak like cement. He is depressed. His girlfriend has psycho some attic issues. Sometimes he gets rashes on his feet likely related to fungal infection. FAMILY HISTORY: Denies any known family history of a malignancy. SOCIAL HISTORY: He worked at the [employer]. He is not . He is . He has 1 son. He used to smoke 2 pack a day. He is still smoking but a bit less. He is exposed to second-line smoke through his girlfriend. He used to drink heavily but 25 years ago. Review of Systems - Constitutional Reports system reviewed and no additional complaints, except as documented - Eyes Reports system reviewed and no additional complaints, except as documented - ENT Reports system reviewed and no additional complaints, except as documented - Cardiovascular Reports system reviewed and no additional complaints, except as documented - Respiratory Reports no additional respiratory complaints - Gastrointestinal Reports system reviewed and no additional complaints, except as documented - Genitourinary Genitourinary: Reports no additional male genitourinary complaints - Musculoskeletal Reports system reviewed and no additional complaints, except as documented - Integumentary/Breasts Skin/Breast: Reports no additional skin complaints - Neurologic Reports system reviewed and no additional complaints, except as documented - Psychiatric Reports system reviewed and no additional complaints, except as documented - Endocrine Reports no additional endocrine complaints - Hematologic/Lymphatic Reports system reviewed and no additional complaints, except as documented - Allergic/Immunologic Reports system reviewed and no additional complaints, except as documented PMFSH Medical History: Medical History (Last Reviewed 12/16/21 @ 14:30 by Carmel Grider CMA) Asthma CAD (coronary artery disease) Cerebral infarction COPD (chronic obstructive pulmonary disease) Diabetes mellitus type 2, insulin dependent Encephalopathy GERD (gastroesophageal reflux disease) Gynecomastia Hyperlipidemia Hypertension Ischemic cardiomyopathy Right lower lobe lung mass Scrotal abscess Smoker TIA (transient ischemic attack) Tubular adenoma of colon Venous stasis dermatitis of both lower extremities Vitamin B 12 deficiency Functional capacity: uses cane/walker Patient : No Family History: Family History (Last Updated 12/16/21 @ 14:31 by Carmel Grider CMA) Son HTN (hypertension) Surgical History: Surgical History (Last Reviewed 12/16/21 @ 14:30 by Carmel Grider CMA) History of colonoscopy History of exploratory laparotomy History of heart artery stent History of hernia repair History of hydrocelectomy History of left inguinal hernia repair History of skin graft Social History: Social History (Last Updated 12/16/21 @ 14:32 by Carmel Grider CMA) Living Situation History: Household Members: Significant Other Housing: Apartment Are you a primary grounds caretaker to a significant other at home: No Do you presently have visiting nurse or other home services: No Alcohol History Details: 1. How often do you have a drink containing alcohol?: a. Never Tobacco History: Patient Tobacco Use Status: Current everyday Tobacco Tobacco use type: Cigarette Cigarette Packs Per Day: 0.5 Years Smoked: unknown Substance Use History: Use of substances other than those prescribed or required for medical reasons : No Substance Use Type: Marijuana Nutrition Assessment: Patient : No Occupation Assessmet: service: No Current occupational status: retired Oncology Screenings - ECOG Performance Status ECOG Performance Status: 0 Home Medications and Allergies Home Medications Medication Instructions Recorded Confirmed Type aspirin 81 mg tablet,delayed 1 tab PO DAILY 12/01/20 12/16/21 History release atorvastatin 80 mg tablet 1 tab PO DAILY 12/01/20 12/16/21 History cyanocobalamin (vitamin B-12) 1 tab PO DAILY 12/01/20 12/16/21 History 1,000 mcg tablet,extended release docusate sodium 100 mg capsule 1 cap PO Q12H PRN 12/01/20 12/16/21 History (DOK) furosemide 20 mg tablet 1.5 tab PO DAILY 12/01/20 12/16/21 History triamcinolone acetonide 0.1 % 0.1 appl TOPICAL BID 12/01/20 12/16/21 History topical cream Allergies Allergy/AdvReac Type Severity Reaction Status Date / Time No Known Allergies Allergy Mild Verified 12/16/21 14:32 Exam Vital signs: Vital Signs Temp 98.6 F 09/29/21 11:44 Pulse Ox 94 09/29/21 11:44 Weight 66.4 kg - Constitutional Present: mild distress - Routine HEENT Exam Head: Present: normal inspection Eye: Present: normal appearance ENT: Present: mucous membranes moist - Routine Neck Exam Present: full ROM - Routine Respiratory Exam Present: decreased breath sounds - Routine Cardiovascular Exam Cardiovascular: Present: RRR, S1, S2 - Routine Abdominal Exam Present: soft, nontender - Routine Extremities Exam Present: nontender - Routine Back/Spine/Pelvis Exam Back/Spine: Present: full ROM - Routine Skin Exam Present: intact, normal turgor - Routine Neurological Exam Present: alert, oriented X3. Absent: motor deficit - Detailed Neurological Exam: Coma Scale Eye Opening: Spontaneous (4) - Routine Psychiatric Exam Present: normal affect Data - Labs CBC & Chem 7: 12/16/21 14:25 12/16/21 14:25 Labs: 09/29/21 13:17 CEA [Carcinoembryonic Antigen] Routine Complete Blood Count Auto Diff Stat Comprehensive Met. Panel Stat Laboratory Last Values WBC 12.4 X10*3/uL (4.8-10.8) H 09/29/21 13:17 RBC 4.56 X10*6/uL (4.60-5.80) L 09/29/21 13:17 Hgb 14.0 g/dl (14.0-18.0) 09/29/21 13:17 Hct 43.2 % (42.0-52.0) 09/29/21 13:17 MCV 94.7 fL (80.0-98.0) 09/29/21 13:17 MCH 30.7 pg (27.0-33.0) 09/29/21 13:17 MCHC 32.4 g/dl (31.0-36.0) 09/29/21 13:17 RDW 13.7 % (11.0-16.0) 09/29/21 13:17 Plt Count 251 X10*3/uL (160-400) 09/29/21 13:17 MPV 10.3 fL (9.4-12.4) 09/29/21 13:17 Immature Gran % (Auto) 0.2 % (0.0-0.4) 09/29/21 13:17 Neut % (Auto) 79.7 % (45-73) H 09/29/21 13:17 Lymph % (Auto) 11.8 % (20-40) L 09/29/21 13:17 [place] % (Auto) 7.7 % (2-11) 09/29/21 13:17 Eos % (Auto) 0.5 % (0-4) 09/29/21 13:17 Baso % (Auto) 0.1 % (0-2) 09/29/21 13:17 Lymph # (Auto) 1.5 X10*3/uL (1.2-4.9) 09/29/21 13:17 [place] # (Auto) 1.0 X10*3/uL (0.1-1.2) 09/29/21 13:17 Eos # (Auto) 0.1 X10*3/uL (0.0-0.4) 09/29/21 13:17 Baso # (Auto) 0.0 X10*3/uL (0.0-0.2) 09/29/21 13:17 Abs Immat Gran (auto) 0.03 X10*3/uL (0.00-0.03) 09/29/21 13:17 Absolute Neuts (auto) 9.9 x10*3/uL (2.0-8.3) H 09/29/21 13:17 Absolute Nucleated RBC 0.000 X10*3/uL (0.0-0.012) 09/29/21 13:17 Nucleated RBC % (auto) 0.0 /100WBC (0.0-0.2) 09/29/21 13:17 Sodium 140 mmol/L (135-145) 09/29/21 13:17 Potassium 3.8 mmol/L (3.3-5.1) 09/29/21 13:17 Chloride 101 mmol/L (96-108) 09/29/21 13:17 Carbon Dioxide 29 mmol/L (22-29) 09/29/21 13:17 Anion Gap 14 (-20) 09/29/21 13:17 BUN 9 mg/dL (9-16) 09/29/21 13:17 Creatinine 0.87 mg/dL (0.5-1.4) 09/29/21 13:17 Estim Creat Clear Calc TNP 09/29/21 13:17 Estimated GFR > 60 09/29/21 13:17 Random Glucose 164 mg/dL (60-115) H D 09/29/21 13:17 Calcium 9.3 mg/dL (8.4-10.2) 09/29/21 13:17 Total Bilirubin 0.9 mg/dL (0.0-1.0) 09/29/21 13:17 AST 19 U/L (5-37) 09/29/21 13:17 ALT 32 U/L (0-40) 09/29/21 13:17 Alkaline Phosphatase 68 U/L (39-117) D 09/29/21 13:17 Total Protein 6.8 g/dL (6.5-8.0) 09/29/21 13:17 Albumin 3.3 g/dL (3.5-5.0) L D 09/29/21 13:17 Carcinoembryonic Ag 6.40 ng/mL 09/29/21 13:17 Assessment and Plan Patient Active problem list reviewed?: Yes (1) Cancer of lower lobe of right lung Status: Acute Assessment and plan: 75-year-old gentleman, a 2 pack per day smoker, with Alzheimer's and multiple comorbidities. Diagnosed with squamous cell carcinoma of the right lower lung. He initially presented with a CT scan of the chest on 04/29, that revealed: New oval-shaped nodule/mass in the superior segment of the right lower lobe worrisome for neoplasm. Stable focal cystic bronchiectasis in the left lower lobe. Enlarged heart. Coronary artery calcification. Asymmetric right-sided gynecomastia. Clinical correlation and follow-up mammogram or ultrasound recommended. His PET scan revealed: 1. 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 There is some central photopenia, most likely due to central necrosis. 2. No additional abnormalities suspicious for metastatic or other malignant lesions are noted. 3. Vascular calcifications including coronary. He had a navigational bronchoscopy with biopsy and endobronchial ultrasound for staging purposes which was done on 09/03. Pathology of the transthoracic needle biopsies right lower lobe lung mass, washings superior segment right lower lobe, revealed: Necrotic, non-small cell carcinoma, compatible with squamous cell carcinoma. Immunohistochemical stains: Negative for TTF 1, synaptophysin and chromogranin. Rare positivity for P 40. Right paratracheal and subcarinal lymph node biopsy negative. He was lost to follow up. He has been seen by radiation therapy at [facility]. PLAN: He will undergo restaging work up, including a PET scan, MRI of brain and PFTs. He will be a candidate for combined modality therapy: Radiation in combination with systemic chemotherapy. Will discuss the case with them and come up with the plan. In the meantime, will check baseline labs including tumor marker: CEA level. He will return in a couple of weeks for a follow up. All their questions were answered to their satisfaction. Thanks, CC: Dr. Jolley. Dr. Terrell. - Time Spent With Patient Time Spent with Patient (in minutes): 30
[2021-12-16 14:27] VITALS: BP 137/62; PULSE 78; RESP 16; TEMP 36; O2SAT 97; BMI 25.6
[2021-12-16 14:28] LABS: MANUAL DIFF FLAG NO
[2021-12-16 14:32] LABS: Basophils Percent Auto 0.1 % (0-2); Eosinophils Absolute Auto 0.4 X10*3/uL (0.0-0.4); Eosinophils Percent Auto 4.3 % (0-4); Hemoglobin 13.1 g/dl (14.0-18.0); Imm Gran Abs Auto 0.01 X10*3/uL (0.00-0.03); Imm Gran Pct Auto 0.1 % (0.0-0.4); Lymphocytes Absolute Auto 1.8 X10*3/uL (1.2-4.9); Lymphocytes Percent Auto 22.8 % (20-40); Mean Corpuscular Hemoglobin 30.1 pg (27.0-33.0); Mean Corpuscular Volume 94.3 fL (80.0-98.0); Mean Platelet Volume 10.5 fL (9.4-12.4); Monocytes Absolute Auto 0.6 X10*3/uL (0.1-1.2); Monocytes Percent Auto 7.7 % (2-11); Neutrophils Absolute Auto 5.2 x10*3/uL (2.0-8.3); Platelet Count 183 X10*3/uL (160-400); Red Blood Count 4.35 X10*6/uL (4.60-5.80); Red Cell Distribution Width 13.5 % (11.0-16.0); White Blood Count 8.1 X10*3/uL (4.8-10.8)
[2021-12-16 14:50] LABS: Alanine Aminotransferase 17 U/L (0-40); Albumin Level 3.8 g/dL (3.5-5.0); Alkaline Phosphatase 89 U/L (39-117); Anion Gap 11 (12-20); Aspartate Amino Transferase 13 U/L (5-37); Bilirubin Total 0.6 mg/dL (0.0-1.0); Blood Urea Nitrogen 15 mg/dL (9-16); Calcium 9.8 mg/dL (8.4-10.2); Carbon Dioxide 32 mmol/L (22-29); Chloride 103 mmol/L (96-108); Creatinine Clr Calc Pharmacy 46.9; Estimated Glomerular Filt Rate > 60; Glucose Random 220 mg/dL (60-115); Potassium 4.6 mmol/L (3.3-5.1); Sodium 141 mmol/L (135-145); Total Protein 7.2 g/dL (6.5-8.0)
--- NOTE | 2021-12-16 15:52 | MHC.HEMONCMA ---
Pt was in for follow up. CLinical summary reviewed and updated, VSS. Labs were drawn. Pt to return in 2 weeks.
--- NOTE | 2021-12-19 14:30 | MHC.HEMONCSW ---
Initial social work assessment, met with patient who is calm, non verbal with me, quite man. sister and son who are the hcp are present. Patient has diagnosis of lung cancer and alzheimers. 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 Discussed effects of cancer, treatments and resources available. Patients brent who is described as mentally challenged cares for him in his [facility] apartment, no services. Son and his sister check in on him daily. They are waiting [facility] determination if he will receive [facility] services....[facility] did intake for that. They were informed of the role of sw and my availability.
--- NOTE | 2021-12-30 15:27 | HE.ONCSEC ---
PATIENT'S SON CAME IN STATING THAT THE DAUGHTER HAD A ROUGH TIME GETTING HIS FATHER OUT OF THE HOUSE , SO THE SON CAME IN PERSONALLY TO RESCHEDULE HIS APPT . I RESCHEDULED HIS APPT FOR 01/01/22
--- NOTE | 2022-01-01 09:31 | HO.HEMONCSCH ---
Today's appt time requested by patient's daughter change due to transportation issues
[2022-01-01 15:40] VITALS: BP 146/64; PULSE 79; RESP 14; TEMP 35.9; O2SAT 98; BMI 23.0
--- NOTE | 2022-01-01 15:41 | PM.HEMONCPN ---
Medical Summary - Medical Summary Date of Service: 01/01/22 Chief complaint: Follow-up for: Squamous cell carcinoma of the lung. Medical Summary: DIAGNOSIS: SQUAMOUS CELL CARCINOMA OF THE RIGHT LUNG. Right paratracheal and subcarinal lymph node biopsy negative. Interval History Interval history: Kane Block is a pleasant 75 year old gentleman, here for a follow-up visit. He was seen initially on 09/29/2021. He was lost to follow-up for a few months. He then came back, on 12/16. He had been seen by radiation. They elected to restage him. He had a PET scan done 12/04/2021 at [facility] which revealed: Abnormal FDG uptake in right lower lobe lung mass suggesting malignancy with central necrosis. Focal increased activity within the right hilar lymph nodes suggesting metastatic adenopathy, SUV of 6.66. He had a staging MRI of the brain on 11/28 which revealed: Senescent changes. Cortical and deep atrophy and extensive white matter signal changes. No evidence of a superimposed acute process. No evidence of intracranial metastases. Overall he is doing fairly well. He denies any pain anywhere. However he has not been eating too well. Her energy level has been low. He is not really participating much. He walks with the walker currently he is on a wheelchair. He does not have any fever nor chills however his appetite has declined and he lost 32 lb in the past 3 months. Denies headache no dizziness however he is sleeping all the time. No CP, gets on SOB on exertion. Denies any abdominal pain nausea vomiting heartburn indigestion. Bowels are working without any gross blood in it. He does urinate a lot. Denies joint pains or muscle ache. His legs feel weak like cement. He is depressed. His girlfriend has psychosomatic issues. Sometimes he gets rashes on his feet likely related to fungal infection. Previous history: He has a history of severe dementia common and multiple comorbidities. He presented with symptoms of a cough and shortness of breath. A CT scan of the chest on 04/29, that revealed: New oval-shaped nodule/mass in the superior segment of the right lower lobe worrisome for neoplasm. Stable focal cystic bronchiectasis in the left lower lobe. Enlarged heart. Coronary artery calcification. Asymmetric right-sided gynecomastia. Clinical correlation and follow-up mammogram or ultrasound recommended. PET scan from07/29: His PET scan revealed: 1. 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 There is some central photopenia, most likely due to central necrosis. 2. No additional abnormalities suspicious for metastatic or other malignant lesions are noted. 3. Vascular calcifications including coronary. On 09/03 he underwent navigational bronchoscopy with fluoro now and transbronchial and endobronchial biopsies right lower lobe lung mass, washings right lower lobe superior segment, endobronchial ultrasound with biopsy multiple lymph node stations, by Dr. Jolley at [facility]. Pathology of the transthoracic needle biopsies right lower lobe lung mass, washings superior segment right lower lobe, revealed: Necrotic, non-small cell carcinoma, compatible with squamous cell carcinoma. Immunohistochemical stains: Negative for TTF 1, synaptophysin and chromogranin. Rare positivity for P40. Right paratracheal and subcarinal lymph node biopsy negative. He tells me he is here for a consultation. He has an appointment with radiation at [facility] on 10/14. ROS: FAMILY HISTORY: Denies any known family history of a malignancy. SOCIAL HISTORY: He worked at the [employer]. He is not . He is . He has 1 son. He used to smoke 2 pack a day. He is still smoking but a bit less. He is exposed to second-line smoke through his girlfriend. He used to drink heavily but 25 years ago. Review of Systems - Constitutional Reports no additional constitutional complaints - Eyes Reports no additional eye complaints - ENT Reports no additional ear, nose, mouth, and throat complaints - Cardiovascular Reports no additional cardiovascular complaints - Respiratory Reports no additional respiratory complaints - Gastrointestinal Reports no additional gastrointestinal complaints - Genitourinary Genitourinary: Reports no additional male genitourinary complaints - Musculoskeletal Reports no additional musculoskeletal complaints - Integumentary/Breasts Skin/Breast: Reports no additional skin complaints - Neurologic Reports no additional neurologic complaints - Psychiatric Reports no additional psychiatric complaints - Endocrine Reports no additional endocrine complaints - Hematologic/Lymphatic Reports no additional hematologic/lymphatic complaints - Allergic/Immunologic Reports no additional allergic/immunologic complaints [facility] Medical History: Medical History (Last Reviewed 01/01/22 @ 15:44 by Carmel Grider CMA) Asthma CAD (coronary artery disease) Cerebral infarction COPD (chronic obstructive pulmonary disease) Diabetes mellitus type 2, insulin dependent Encephalopathy GERD (gastroesophageal reflux disease) Gynecomastia Hyperlipidemia Hypertension Ischemic cardiomyopathy Right lower lobe lung mass Scrotal abscess Smoker TIA (transient ischemic attack) Tubular adenoma of colon Venous stasis dermatitis of both lower extremities Vitamin B 12 deficiency Functional capacity: uses cane/walker Patient : No Family History: Family History (Last Reviewed 01/01/22 @ 15:44 by Carmel Grider CMA) Son HTN (hypertension) Surgical History: Surgical History (Last Reviewed 01/01/22 @ 15:44 by Carmel Grider CMA) History of colonoscopy History of exploratory laparotomy History of heart artery stent History of hernia repair History of hydrocelectomy History of left inguinal hernia repair History of skin graft Social History: Social History (Last Reviewed 01/01/22 @ 15:44 by Carmel Grider CMA) Living Situation History: Household Members: Significant Other Housing: Apartment Are you a primary care navigator to a significant other at home: No Do you presently have visiting nurse or other home services: No Alcohol History Details: 1. How often do you have a drink containing alcohol?: a. Never Tobacco History: Patient Tobacco Use Status: Current everyday Tobacco Tobacco use type: Cigarette Cigarette Packs Per Day: 0.5 Years Smoked: unknown Substance Use History: Use of substances other than those prescribed or required for medical reasons: No Substance Use Type: Marijuana Nutrition Assessment: Patient : No Occupation Assessmet: service: No Current occupational status: retired Oncology Screenings - ECOG Performance Status ECOG Performance Status: 1 Home Medications and Allergies Home Medications Medication Instructions Recorded Confirmed Type aspirin 81 mg tablet,delayed 1 tab PO DAILY 12/01/20 01/01/22 History release atorvastatin 80 mg tablet 1 tab PO DAILY 12/01/20 01/01/22 History cyanocobalamin (vitamin B-12) 1 tab PO DAILY 12/01/20 01/01/22 History 1,000 mcg tablet,extended release docusate sodium 100 mg capsule 1 cap PO Q12H PRN 12/01/20 01/01/22 History (DOK) furosemide 20 mg tablet 1.5 tab PO DAILY 12/01/20 01/01/22 History triamcinolone acetonide 0.1 % 0.1 appl TOPICAL BID 12/01/20 01/01/22 History topical cream Allergies Allergy/AdvReac Type Severity Reaction Status Date / Time No Known Allergies Allergy Mild Verified 01/01/22 15:44 Exam Vital signs: Vital Signs Temp 96.8 F 12/16/21 14:27 Pulse 78 12/16/21 14:27 Resp 16 12/16/21 14:27 BP 137/62 12/16/21 14:27 Pulse Ox 97 12/16/21 14:27 Weight 65.7 kg BMI result Body Mass Index 25.6 - Constitutional Present: mild distress - Routine HEENT Exam Head: Present: normal inspection Eye: Present: normal appearance ENT: Present: mucous membranes moist - Routine Neck Exam Present: full ROM - Routine Respiratory Exam Present: decreased breath sounds - Routine Cardiovascular Exam Cardiovascular: Present: RRR, S1, S2 - Routine Abdominal Exam Present: soft, nontender - Routine Extremities Exam Present: nontender - Routine Back/Spine/Pelvis Exam Back/Spine: Present: full ROM - Routine Skin Exam Present: intact, normal turgor - Routine Neurological Exam Present: alert, oriented X3. Absent: motor deficit - Detailed Neurological Exam: Coma Scale Eye Opening: Spontaneous (4) - Routine Psychiatric Exam Present: normal affect Data - Labs CBC & Chem 7: 12/16/21 14:25 12/16/21 14:25 Assessment and Plan Patient Active problem list reviewed?: Yes (1) Cancer of lower lobe of right lung Status: Acute Assessment and plan: 76 year-old gentleman, a 2 pack per day smoker, with Alzheimer's and multiple comorbidities. Diagnosed with squamous cell carcinoma of the right lower lung. He initially presented with a CT scan of the chest on 04/29, that revealed: New oval-shaped nodule/mass in the superior segment of the right lower lobe worrisome for neoplasm. Stable focal cystic bronchiectasis in the left lower lobe. Enlarged heart. Coronary artery calcification. Asymmetric right-sided gynecomastia. Clinical correlation and follow-up mammogram or ultrasound recommended. His initial PET scan revealed: 1. 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 There is some central photopenia, most likely due to central necrosis. 2. No additional abnormalities suspicious for metastatic or other malignant lesions are noted. 3. Vascular calcifications including coronary. He had a navigational bronchoscopy with biopsy and endobronchial ultrasound for staging purposes which was done on 09/03. Pathology of the transthoracic needle biopsies right lower lobe lung mass, washings superior segment right lower lobe, revealed: Necrotic, non-small cell carcinoma, compatible with squamous cell carcinoma. Immunohistochemical stains: Negative for TTF 1, synaptophysin and chromogranin. Rare positivity for P 40. Right paratracheal and subcarinal lymph node biopsy negative. He was lost to follow up. He then came back, on 12/16. He had been seen by radiation. They elected to restage him. He had a PET scan done 12/04/2021 at [facility] which revealed: Abnormal FDG uptake in right lower lobe lung mass suggesting malignancy with central necrosis. Focal increased activity within the right hilar lymph nodes suggesting metastatic adenopathy, SUV of 6.66. He had a staging MRI of the brain on 11/28 which revealed: Senescent changes. Cortical and deep atrophy and extensive white matter signal changes. No evidence of a superimposed acute process. No evidence of intracranial metastases. PLAN: He will be a candidate for combined modality therapy: Radiation in combination with systemic chemotherapy. Will discuss the case with Dr. Terrell and come up with the plan. In the meantime, l checked baseline labs including tumor marker: CEA level; 6.40. He will be following up with radiation to undergo radiation planning. He will return in a couple of weeks for a follow up. All their questions were answered to their satisfaction. Thanks, CC: Dr. Jolley. Dr. Terrell. - Time Spent With Patient Time Spent with Patient (in minutes): 30
--- NOTE | 2022-01-01 16:39 | MHC.HEMONCMA ---
Pt was in for follow up. Clinical summary reviewed and updated, VSS. Pt to return in 1 month.
--- NOTE | 2022-01-05 14:46 | MHC.HEMONCSW ---
MET WITH PT AND SISTER CARMENZA. PT IS S/P STROKE AND ONLY ANSWERS ONE WORD QUESTIONS. HE IS TRANSPORTED HERE BY SISTER. HE HAS LUNG CANCER AND ALZHEIMERS. EC DID [place] FOR SUB MASTER BUT YET TO MAKE A DETERMINATION. VANESSA ANTONY IS LOOKING INTO A [place] [employer] [facility] [employer] AL[employer]. RESOURCES AND SUPPORT PROVIDED.
--- NOTE | 2022-02-16 13:50 | HE.ONCSEC ---
I CALLED PT'S SPONSORED DEPENDENT DUE TO N/S . SHE APOLOGIZED FOR NOT COMING DUE TO A CONFLICT IN HER WORK SCHEDULE & SHE KNEW SHE SHOULD HAVE CALLED . I RESCHEDULED W HER ON THE PHONE .
[2022-02-24 13:21] VITALS: BP 129/60; PULSE 60; RESP 14; TEMP 36.4; O2SAT 94; BMI 25.4
--- NOTE | 2022-02-24 13:57 | P.PNHO_ITS ---
Medical Summary - Medical Summary Date of Service: 02/24/22 Chief complaint: Follow-up for: Squamous cell carcinoma of the lung. Medical Summary: DIAGNOSIS: SQUAMOUS CELL CARCINOMA OF THE RIGHT LUNG. Right paratracheal and subcarinal lymph node biopsy negative. Interval History Interval history: Kane Block is a pleasant 75 year old gentleman, here for a follow-up visit. He is accompanied by his daughter. Overall he is doing fairly well. He denies any pain anywhere. However he has not been eating too well. Her energy level has been low. He is not really participating much. He walks with the walker currently he is on a wheelchair. He does not have any fever nor chills however his appetite has declined and he lost 32 lb in the past 3 months. Denies headache no dizziness however he is sleeping all the time. No CP, gets on SOB on exertion. Denies any abdominal pain nausea vomiting heartburn indigestion. Bowels are working without any gross blood in it. He does urinate a lot. Denies joint pains or muscle ache. His legs feel weak, like cement. He is depressed. His girlfriend has psychosomatic issues. He had been seen by radiation. They elected to restage him. He had a staging MRI of the brain on 11/28 which revealed: Senescent changes. Cortical and deep atrophy and extensive white matter signal changes. No evidence of a superimposed acute process. No evidence of intracranial metastases. He had a PET scan done 12/04/2021 at [facility] which revealed: Abnormal FDG uptake in right lower lobe lung mass suggesting malignancy with central necrosis. Focal increased activity within the right hilar lymph nodes suggesting metastatic adenopathy, SUV of 6.66. Interim history: He was seen initially on 09/29/2021. He was lost to follow-up for a few months. He then came back, on 12/16/21. Previous history: He has a history of severe dementia common and multiple comorbidities. He presented with symptoms of a cough and shortness of breath. A CT scan of the chest on 04/29, that revealed: New oval-shaped nodule/mass in the superior segment of the right lower lobe worrisome for neoplasm. Stable focal cystic bronchiectasis in the left lower lobe. Enlarged heart. Coronary artery calcification. Asymmetric right-sided gynecomastia. Clinical correlation and follow-up mammogram or ultrasound recommended. PET scan from07/29: His PET scan revealed: 1. 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 There is some central photopenia, most likely due to central necrosis. 2. No additional abnormalities suspicious for metastatic or other malignant lesions are noted. 3. Vascular calcifications including coronary. On 09/03 he underwent navigational bronchoscopy with fluoro now and transbro nchial and endobronchial biopsies right lower lobe lung mass, washings right lower lobe superior segment, endobronchial ultrasound with biopsy multiple lymph node stations, by Dr. Jolley at [facility]. Pathology of the transthoracic needle biopsies right lower lobe lung mass, washings superior segment right lower lobe, revealed: Necrotic, non-small cell carcinoma, compatible with squamous cell carcinoma. Immunohistochemical stains: Negative for TTF 1, synaptophysin and chromogranin. Rare positivity for P40. Right paratracheal and subcarinal lymph node biopsy negative. He tells me he is here for a consultation. He has an appointment with radiation at [facility] on 10/14. ROS: FAMILY HISTORY: Denies any known family history of a malignancy. SOCIAL HISTORY: He worked at the [employer]. He is not . He is . He has 1 son. He used to smoke 2 pack a day. He is still smoking but a bit less. He is exposed to second-line smoke through his girlfriend. He used to drink heavily but 25 years ago. Review of Systems - Constitutional Reports no additional constitutional complaints, Reports lack of energy, Reports malaise, Reports weight loss - Eyes Reports no additional eye complaints - ENT Reports no additional ear, nose, mouth, and throat complaints - Cardiovascular Reports no additional cardiovascular complaints - Respiratory Reports no additional respiratory complaints - Gastrointestinal Reports no additional gastrointestinal complaints - Genitourinary Genitourinary: Reports no additional male genitourinary complaints - Musculoskeletal Reports no additional musculoskeletal complaints - Integumentary/Breasts Skin/Breast: Reports no additional skin complaints - Neurologic Reports no additional neurologic complaints - Psychiatric Reports no additional psychiatric complaints, Reports depression - Endocrine Reports no additional endocrine complaints - Hematologic/Lymphatic Reports no additional hematologic/lymphatic complaints - Allergic/Immunologic Reports no additional allergic/immunologic complaints [facility] Medical History: Medical History (Last Reviewed 02/24/22 @ 13:27 by Carmel Grider CMA) Asthma CAD (coronary artery disease) Cerebral infarction COPD (chronic obstructive pulmonary disease) Diabetes mellitus type 2, insulin dependent Encephalopathy GERD (gastroesophageal reflux disease) Gynecomastia Hyperlipidemia Hypertension Ischemic cardiomyopathy Right lower lobe lung mass Scrotal abscess Smoker TIA (transient ischemic attack) Tubular adenoma of colon Venous stasis dermatitis of both lower extremities Vitamin B 12 deficiency Functional capacity: wheelchair bound Patient : No Family History: Family History (Last Reviewed 02/24/22 @ 13:27 by Carmel Grider CMA) Son HTN (hypertension) Surgical History: Surgical History (Last Reviewed 02/24/22 @ 13:27 by Carmel Grider CMA) History of colonoscopy History of exploratory laparotomy History of heart artery stent History of hernia repair History of hydrocelectomy History of left inguinal hernia repair History of skin graft Social History: Social History (Last Updated 02/24/22 @ 13:28 by Carmel Grider CMA) Living Situation History: Household Members: Significant Other Housing: Apartment Are you a primary child care lead teacher to a significant other at home: No Do you presently have visiting nurse or other home services: No Alcohol History Details: 1. How often do you have a drink containing alcohol?: a. Never Tobacco History: Patient Tobacco Use Status: Current everyday Tobacco Tobacco use type: Cigarette Cigarette Packs Per Day: 0.5 Years Smoked: unknown Substance Use History: Use of substances other than those prescribed or required for medical reasons : No Substance Use Type: Marijuana Domestic Abuse History: Have you been hit, kicked, punched, or otherwise hurt by someone within the past year? If so, by whom?: No Do you feel safe in your current relationship?: Yes Homicidal Assessment: Do you have thoughts of harming others: None Do you have a plan to hurt others: No Plan Do you have the means to hurt others: No Nutrition Assessment: Recently lost weight without trying: No Patient : No Occupation Assessmet: service: No Current occupational status: retired Oncology Screenings - ECOG Performance Status ECOG Performance Status: 2 Home Medications and Allergies Home Medications Medication Instructions Recorded Confirmed Type aspirin 81 mg tablet,delayed 1 tab PO DAILY 12/01/20 02/24/22 History release atorvastatin 80 mg tablet 1 tab PO DAILY 12/01/20 02/24/22 History cyanocobalamin (vitamin B-12) 1 tab PO DAILY 12/01/20 02/24/22 History 1,000 mcg tablet,extended release docusate sodium 100 mg capsule 1 cap PO Q12H PRN 12/01/20 02/24/22 History (DOK) furosemide 20 mg tablet 1.5 tab PO DAILY 12/01/20 02/24/22 History triamcinolone acetonide 0.1 % 0.1 appl TOPICAL BID 12/01/20 02/24/22 History topical cream Allergies Allergy/AdvReac Type Severity Reaction Status Date / Time No Known Allergies Allergy Mild Verified 02/24/22 13:28 Exam Vital signs: Vital Signs Temp 97.5 F 02/24/22 13:21 Pulse 60 02/24/22 13:21 Resp 14 02/24/22 13:21 BP 129/60 02/24/22 13:21 Pulse Ox 94 02/24/22 13:21 Intake & Output 02/23/22 02/24/22 02/24/22 18:59 06:59 18:59 Other: Weight 65 kg [place] Weight in Grams [id number] Weight 65 kg BMI result Body Mass Index 25.4 - Constitutional Present: mild distress - Routine HEENT Exam Head: Present: normal inspection Eye: Present: normal appearance ENT: Present: mucous membranes moist - Routine Neck Exam Present: full ROM - Routine Respiratory Exam Present: decreased breath sounds - Routine Cardiovascular Exam Cardiovascular: Present: RRR, S1, S2 - Routine Abdominal Exam Present: soft, nontender - Routine Extremities Exam Present: nontender - Routine Back/Spine/Pelvis Exam Back/Spine: Present: full ROM - Routine Skin Exam Present: intact, normal turgor - Routine Neurological Exam Present: alert, oriented X3. Absent: motor deficit - Detailed Neurological Exam: Coma Scale Eye Opening: Spontaneous (4) - Routine Psychiatric Exam Present: normal affect Data - Labs CBC & Chem 7: 02/24/22 14:05 02/24/22 14:05 Assessment and Plan Patient Active problem list reviewed?: Yes (1) Cancer of lower lobe of right lung Status: Acute Assessment and plan: 76 year-old gentleman, a 2 pack per day smoker, with Alzheimer's and multiple comorbidities. Diagnosed with squamous cell carcinoma of the right lower lung. He initially presented with a CT scan of the chest on 04/29, that revealed: New oval-shaped nodule/mass in the superior segment of the right lower lobe worrisome for neoplasm. Stable focal cystic bronchiectasis in the left lower lobe. Enlarged heart. Coronary artery calcification. Asymmetric right-sided gynecomastia. Clinical correlation and follow-up mammogram or ultrasound recommended. His initial PET scan revealed: 1. 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 There is some central photopenia, most likely due to central necrosis. 2. No additional abnormalities suspicious for metastatic or other malignant l esions are noted. 3. Vascular calcifications including coronary. He had a navigational bronchoscopy with biopsy and endobronchial ultrasound for staging purposes which was done on 09/03. Pathology of the transthoracic needle biopsies right lower lobe lung mass, washings superior segment right lower lobe, revealed: Necrotic, non-small cell carcinoma, compatible with squamous cell carcinoma. Immunohistochemical stains: Negative for TTF 1, synaptophysin and chromogranin. Rare positivity for P 40. Right paratracheal and subcarinal lymph node biopsy negative. He was lost to follow up. He then came back, on 12/16. He had been seen by radiation. They elected to restage him. He had a staging MRI of the brain on 11/28 which revealed: Senescent changes. Cortical and deep atrophy and extensive white matter signal changes. No evidence of a superimposed acute process. No evidence of intracranial metastases. He had a PET scan done 12/04/2021 at [facility] which revealed: Abnormal FDG uptake in right lower lobe lung mass suggesting malignancy with central necrosis. Focal increased activity within the right hilar lymph nodes suggesting metastatic adenopathy, SUV of 6.66. He appears rather weak. He has missed a few appointments here. PLAN: In the plan is to proceed with the repeat PET scan since the last one was 3 months ago. If he still has disease limited to the chest, will proceed with radiation. I feel he is rather frail for systemic chemotherapy. He has an appointment with [facility] on . l will discuss the plan with Dr. Terrell. In the meantime, l checked baseline labs including tumor marker: CEA level; 6.40. He will return in a couple of weeks for a follow up. All their questions were answered to their satisfaction. Thanks, CC: Dr. Jolley. Dr. Terrell. - Time Spent With Patient Time Spent with Patient (in minutes): 25
[2022-02-24 14:19] LABS: MANUAL DIFF FLAG NO
[2022-02-24 14:25] LABS: Basophils Percent Auto 0.2 % (0-2); Hematocrit 37.6 % (42.0-52.0); Hemoglobin 12.1 g/dl (14.0-18.0); Imm Gran Abs Auto 0.04 X10*3/uL (0.00-0.03); Imm Gran Pct Auto 0.5 % (0.0-0.4); Lymphocytes Percent Auto 11.7 % (20-40); Mean Corpuscular HGB Conc 32.2 g/dl (31.0-36.0); Mean Corpuscular Hemoglobin 30.5 pg (27.0-33.0); Mean Corpuscular Volume 94.7 fL (80.0-98.0); Mean Platelet Volume 11.4 fL (9.4-12.4); Monocytes Absolute Auto 0.6 X10*3/uL (0.1-1.2); Monocytes Percent Auto 6.9 % (2-11); Neutrophils Absolute Auto 6.9 x10*3/uL (2.0-8.3); Neutrophils Percent Auto 80.7 % (45-73); Platelet Count 204 X10*3/uL (160-400); Red Blood Count 3.97 X10*6/uL (4.60-5.80); Red Cell Distribution Width 14.1 % (11.0-16.0); White Blood Count 8.5 X10*3/uL (4.8-10.8)
[2022-02-24 14:53] LABS: Alanine Aminotransferase 30 U/L (0-40); Albumin Level 3.7 g/dL (3.5-5.0); Alkaline Phosphatase 76 U/L (39-117); Anion Gap 13 (12-20); Aspartate Amino Transferase 32 U/L (5-37); Bilirubin Total 0.5 mg/dL (0.0-1.0); Blood Urea Nitrogen 32 mg/dL (9-16); Calcium 9.7 mg/dL (8.4-10.2); Carbon Dioxide 27 mmol/L (22-29); Chloride 104 mmol/L (96-108); Creatinine Clr Calc Pharmacy 36.6; Estimated Glomerular Filt Rate 51; Glucose Random 426 mg/dL (60-115); Potassium 3.7 mmol/L (3.3-5.1); Sodium 140 mmol/L (135-145); Total Protein 7.2 g/dL (6.5-8.0)
--- NOTE | 2022-02-24 15:00 | MHC.HEMONC ---
Received critical glucose result of 426 from chemistry. 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 States she will given pt his insulin.
--- NOTE | 2022-02-24 15:13 | MHC.HEMONCSW ---
PATIENT BROUGHT IN TO SEE DR. BOND BY HIS SISTER, HCP. HE WAS LOST TO TREATMENT FOR A FEW WEEKS. PLAN IS [facility] HERE. [facility] JUST APPROVED HIM A 20 HOUR PER WEEK DIGITAL MEDIA INTERN, SISTER HOPES THAT PERSON WILL TAKE HIM TO APPOINTMENT BECAUSE SHE WORKS. GIRLFRIEND IS DESCRIBED SPECIAL NEEDS WHICH IS HER BASELINE. 30 LB WEIGHT LOSS, GLUCERNA GIVEN. BOTH ARE AWARE OF MY AVAILABILITY.
--- NOTE | 2022-02-24 15:46 | MHC.HEMONCMA ---
Pt was in for follow up with his daughter. Clinical summary reviewed and updated, VSS. Labs were drawn. Pt to return in 1 month.
[2022-06-12 10:08] VITALS: BP 126/60; PULSE 80; RESP 14; TEMP 36; O2SAT 96; BMI 24.0
--- NOTE | 2022-06-12 10:22 | PM.HEMONCPN ---
Medical Summary - Medical Summary Date of Service: 06/12/22 Chief complaint: Follow up for: Squamous cell carcinoma of the lung. Medical Summary: DIAGNOSIS: SQUAMOUS CELL CARCINOMA OF THE RIGHT LUNG. Right paratracheal and subcarinal lymph node biopsy negative. CURRENT THERAPY: Status post completion of radiation therapy couple of weeks ago. Follow-up appointment at [facility] is on 06/22. Interval History Interval history: Kane Block is a pleasant 75 year old gentleman, here for a follow-up visit. He is accompanied by his son, today. He tells me he is doing fine. The radiation therapy went well. He denies any pain anywhere. His energy level has been somewhat low. He walks with the walker currently he is on a wheelchair. He does not have any fever nor chills however his appetite has declined Denies headache no dizziness however he is sleeping all the time. No CP, gets on SOB on exertion. Denies any abdominal pain nausea vomiting heartburn indigestion. Bowels are working without any gross blood in it. He had lost 32 lb in the previous 3 months. Now he is starting to eat better and gain weight. He does urinate a lot. Denies joint pains or muscle ache. His legs feel weak, like cement. He is in good spirits. His girlfriend has psychosomatic issues. He had been seen by radiation. They elected to restage him. He had a staging MRI of the brain on 11/28 which revealed: Senescent changes. Cortical and deep atrophy and extensive white matter signal changes. No evidence of a superimposed acute process. No evidence of intracranial metastases. He had a PET scan done 12/04/[address] [facility] which revealed: Abnormal FDG uptake in right lower lobe lung mass suggesting malignancy with central necrosis. Focal increased activity within the right hilar lymph nodes suggesting metastatic adenopathy, SUV of 6.66. Interim history: He was seen initially on 09/29/2021. He was lost to follow-up for a few months. He then came back, on 12/16/21. Previous history: He has a history of severe dementia common and multiple comorbidities. He presented with symptoms of a cough and shortness of breath. A CT scan of the chest on 04/29, that revealed: New oval-shaped nodule/mass in the superior segment of the right lower lobe worrisome for neoplasm. Stable focal cystic bronchiectasis in the left lower lobe. Enlarged heart. Coronary artery calcification. Asymmetric right-sided gynecomastia. Clinical correlation and follow-up mammogram or ultrasound recommended. PET scan from07/29: His PET scan revealed: 1. 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 There is some central photopenia, most likely due to central necrosis. 2. No additional abnormalities suspicious for metastatic or other malignant lesions are noted. 3. Vascular calcifications including coronary. On 09/03 he underwent navigational bronchoscopy with fluoro now and transbronchial and endobronchial biopsies right lower lobe lung mass, washings right lower lobe superior segment, endobronchial ultrasound with biopsy multiple lymph node stations, by Dr. Jolley at [facility]. Pathology of the transthoracic needle biopsies right lower lobe lung mass, washings superior segment right lower lobe, revealed: Necrotic, non-small cell carcinoma, compatible with squamous cell carcinoma. Immunohistochemical stains: Negative for TTF 1, synaptophysin and chromogranin. Rare positivity for P40. Right paratracheal and subcarinal lymph node biopsy negative. He tells me he is here for a consultation. He has an appointment with radiation at [facility] on 10/14. ROS: FAMILY HISTORY: Denies any known family history of a malignancy. SOCIAL HISTORY: He worked at the [employer]. He is not . He is . He has 1 son. He used to smoke 2 pack a day. He is still smoking but a bit less. He is exposed to second-line smoke through his girlfriend. He used to drink heavily but 25 years ago. Review of Systems - Constitutional Reports no additional constitutional complaints, Reports lack of energy, Reports weight gain, Denies weight loss - Eyes Reports no additional eye complaints - ENT Reports no additional ear, nose, mouth, and throat complaints - Cardiovascular Reports no additional cardiovascular complaints - Respiratory Reports no additional respiratory complaints - Gastrointestinal Reports no additional gastrointestinal complaints - Genitourinary Genitourinary: Reports no additional male genitourinary complaints - Musculoskeletal Reports no additional musculoskeletal complaints - Integumentary/Breasts Skin/Breast: Reports no additional skin complaints - Neurologic Reports no additional neurologic complaints - Psychiatric Reports no additional psychiatric complaints - Endocrine Reports no additional endocrine complaints - Hematologic/Lymphatic Reports no additional hematologic/lymphatic complaints - Allergic/Immunologic Reports no additional allergic/immunologic complaints [facility] Medical History: Medical History (Last Reviewed 06/12/22 @ 10:22 by Carmel Grider CMA) Asthma CAD (coronary artery disease) Cerebral infarction COPD (chronic obstructive pulmonary disease) Diabetes mellitus type 2, insulin dependent Encephalopathy GERD (gastroesophageal reflux disease) Gynecomastia Hyperlipidemia Hypertension Ischemic cardiomyopathy Right lower lobe lung mass Scrotal abscess Smoker TIA (transient ischemic attack) Tubular adenoma of colon Venous stasis dermatitis of both lower extremities Vitamin B 12 deficiency Functional capacity: wheelchair bound Patient : No Family History: Family History (Last Reviewed 06/12/22 @ 10:22 by Carmel Grider CMA) Son HTN (hypertension) Surgical History: Surgical History (Last Reviewed 06/12/22 @ 10:22 by Carmel Grider CMA) History of colonoscopy History of exploratory laparotomy History of heart artery stent History of hernia repair History of hydrocelectomy History of left inguinal hernia repair History of skin graft Social History: Social History (Last Reviewed 06/12/22 @ 10:22 by Carmel Grider CMA) Living Situation History: Household Members: Significant Other Housing: Apartment Are you a primary care team coordinator scheduler to a significant other at home: No Do you presently have visiting nurse or other home services: No Alcohol History Details: 1. How often do you have a drink containing alcohol?: a. Never Tobacco History: Patient Tobacco Use Status: Current everyday Tobacco Tobacco use type: Cigarette Cigarette Packs Per Day: 0.5 Years Smoked: unknown Substance Use History: Use of substances other than those prescribed or required for medical reasons: No Substance Use Type: Marijuana Domestic Abuse History: Have you been hit, kicked, punched, or otherwise hurt by someone within the past year? If so, by whom?: No Do you feel safe in your current relationship?: Yes Homicidal Assessment: Do you have thoughts of harming others: None Do you have a plan to hurt others: No Plan Do you have the means to hurt others: No Nutrition Assessment: Recently lost weight without trying: No Patient : No Occupation Assessmet: service: No Current occupational status: retired Oncology Screenings - ECOG Performance Status ECOG Performance Status: 1 Home Medications and Allergies Home Medications Medication Instructions Recorded Confirmed Type atorvastatin 80 mg tablet 1 tab PO DAILY 12/01/20 06/12/22 History cyanocobalamin (vitamin B-12) 1 tab PO DAILY 12/01/20 06/12/22 History 1,000 mcg tablet,extended release docusate sodium 100 mg capsule 1 cap PO Q12H PRN Constipation 12/01/20 06/12/22 History (DOK) furosemide 20 mg tablet 1.5 tab PO DAILY 12/01/20 06/12/22 History triamcinolone acetonide 0.1 % 0.1 appl topical BID 12/01/20 06/12/22 History topical cream apixaban 5 mg tablet (Eliquis) 5 mg PO BID 06/12/22 06/12/22 History digoxin 125 mcg (0.125 mg) tablet 125 mcg PO DAILY 06/12/22 06/12/22 History ferrous sulfate 324 mg (65 mg 324 mg PO DAILY 06/12/22 06/12/22 History iron) tablet,delayed release Allergies Allergy/AdvReac Type Severity Reaction Status Date / Time No Known Allergies Allergy Mild Verified 06/12/22 10:23 Exam Vital signs: Vital Signs Temp 97.5 F 02/24/22 13:21 Pulse 60 02/24/22 13:21 Resp 14 02/24/22 13:21 BP 129/60 02/24/22 13:21 Pulse Ox 94 02/24/22 13:21 O2 Del Method 02/24/22 13:21 Weight 65 kg BMI result Body Mass Index 25.4 - Constitutional Present: mild distress - Routine HEENT Exam Head: Present: normal inspection Eye: Present: normal appearance ENT: Present: mucous membranes moist - Routine Neck Exam Present: full ROM - Routine Respiratory Exam Present: decreased breath sounds - Routine Cardiovascular Exam Cardiovascular: Present: RRR, S1, S2 - Routine Abdominal Exam Present: soft, nontender - Routine Extremities Exam Present: nontender - Routine Back/Spine/Pelvis Exam Back/Spine: Present: full ROM - Routine Skin Exam Present: intact, normal turgor - Routine Neurological Exam Present: alert, oriented X3. Absent: motor deficit - Detailed Neurological Exam: Coma Scale Eye Opening: Spontaneous (4) - Routine Psychiatric Exam Present: normal affect Data - Labs CBC & Chem 7: 06/12/22 10:16 06/12/22 10:16 Assessment and Plan Patient Active problem list reviewed?: Yes (1) Cancer of lower lobe of right lung Status: Acute Assessment and plan: 76 year-old gentleman, a 2 pack per day smoker, with Alzheimer's and multiple comorbidities. Diagnosed with squamous cell carcinoma of the right lower lung. He initially presented with a CT scan of the chest on 04/29, that revealed: New oval-shaped nodule/mass in the superior segment of the right lower lobe worrisome for neoplasm. Stable focal cystic bronchiectasis in the left lower lobe. Enlarged heart. Coronary artery calcification. Asymmetric right-sided gynecomastia. Clinical correlation and follow-up mammogram or ultrasound recommended. His initial PET scan revealed: 1. 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 There is some central photopenia, most likely due to central necrosis. 2. No additional abnormalities suspicious for metastatic or other malignant lesions are noted. 3. Vascular calcifications including coronary. He had a navigational bronchoscopy with biopsy and endobronchial ultrasound for staging purposes which was done on 09/03. Pathology of the transthoracic needle biopsies right lower lobe lung mass, washings superior segment right lower lobe, revealed: Necrotic, non-small cell carcinoma, compatible with squamous cell carcinoma. Immunohistochemical stains: Negative for TTF 1, synaptophysin and chromogranin. Rare positivity for P 40. Right paratracheal and subcarinal lymph node biopsy negative. He was lost to follow up. He then came back, on 12/16. He had been seen by radiation. They elected to restage him. He had a staging MRI of the brain on 11/28 which revealed: Senescent changes. Cortical and deep atrophy and extensive white matter signal changes. No evidence of a superimposed acute process. No evidence of intracranial metastases. He had a PET scan done 12/04/[address] [facility] which revealed: Abnormal FDG uptake in right lower lobe lung mass suggesting malignancy with central necrosis. Focal increased activity within the right hilar lymph nodes suggesting metastatic adenopathy, SUV of 6.66. He has missed a few appointments here. The repeat PET scan from March revealed: Disease confined to the chest. We proceeded with radiation therapy. He just completed the radiation couple of weeks ago. He has a follow-up appointment there on 06/22. He appears stable. PLAN: The plan is to re-stage her with imaging, in a couple of months time. Hopefully he has responded well to the RT. And that will buy him some time. In the meantime, l checked baseline labs including tumor marker: CEA level; 6.40. He will return in a month for a follow up. All their questions were answered to their satisfaction. Thanks, CC: Dr. Jolley. Dr. Terrell. - Time Spent With Patient Time Spent with Patient (in minutes): 26
[2022-06-12 10:31] LABS: MANUAL DIFF FLAG NO
[2022-06-12 10:36] LABS: Basophils Percent Auto 0.3 % (0-2); Eosinophils Absolute Auto 0.2 X10*3/uL (0.0-0.4); Eosinophils Percent Auto 6.2 % (0-4); Hematocrit 38.8 % (42.0-52.0); Hemoglobin 12.5 g/dl (14.0-18.0); Imm Gran Abs Auto 0.01 X10*3/uL (0.00-0.03); Imm Gran Pct Auto 0.3 % (0.0-0.4); Lymphocytes Absolute Auto 0.3 X10*3/uL (1.2-4.9); Lymphocytes Percent Auto 8.7 % (20-40); Mean Corpuscular HGB Conc 32.2 g/dl (31.0-36.0); Mean Corpuscular Hemoglobin 30.7 pg (27.0-33.0); Mean Corpuscular Volume 95.3 fL (80.0-98.0); Monocytes Absolute Auto 0.5 X10*3/uL (0.1-1.2); Monocytes Percent Auto 13.8 % (2-11); Neutrophils Absolute Auto 2.5 x10*3/uL (2.0-8.3); Neutrophils Percent Auto 70.7 % (45-73); Platelet Count 173 X10*3/uL (160-400); Red Blood Count 4.07 X10*6/uL (4.60-5.80); Red Cell Distribution Width 14.7 % (11.0-16.0); White Blood Count 3.6 X10*3/uL (4.8-10.8)
[2022-06-12 11:09] LABS: Alanine Aminotransferase 17 U/L (0-40); Albumin Level 3.8 g/dL (3.5-5.0); Alkaline Phosphatase 64 U/L (39-117); Anion Gap 17 (12-20); Aspartate Amino Transferase 20 U/L (5-37); Bilirubin Total 0.5 mg/dL (0.0-1.0); Blood Urea Nitrogen 14 mg/dL (9-16); Calcium 8.6 mg/dL (8.4-10.2); Carbon Dioxide 29 mmol/L (22-29); Chloride 102 mmol/L (96-108); Creatinine Clr Calc Pharmacy 45.2; Estimated Glomerular Filt Rate > 60; Glucose Random 105 mg/dL (60-115); Potassium 4.3 mmol/L (3.3-5.1); Sodium 144 mmol/L (135-145); Total Protein 6.7 g/dL (6.5-8.0)
--- NOTE | 2022-06-12 14:32 | MHC.HEMONCMA ---
Pt was in for follow up. Clinical summary reviewed and updated, VSS. Labs were drawn. Pt to return in 2 months.
--- NOTE | 2022-06-29 13:27 | HO.HEMONCSCH ---
Ct chest sent to [facility].
--- NOTE | 2022-07-16 11:45 | P.PNHO-ONC_ITS ---
Medical Summary - Medical Summary Date of Service: 07/16/22 Chief complaint: FOLLOW-UP FOR: SQUAMOUS CELL CARCINOMA OF THE LUNG. Medical Summary: DIAGNOSIS: SQUAMOUS CELL CARCINOMA OF THE RIGHT LUNG. Right paratracheal and subcarinal lymph node biopsy negative. CURRENT THERAPY: Status post completion of radiation therapy, week of May. Follow-up appointment at [facility] was on 06/22. Interval History Interval history: Kane Block is a pleasant 76 year old gentleman, here for a follow-up visit. He is accompanied by his son, today. He tells me he is doing very well. His energy level has been somewhat low. He walks with the walker currently he is on a wheelchair. He denies any pain anywhere. No CP, gets on SOB on exertion. He has been prescribed a new nebulizer by his primary. The machine got delivered but he is waiting for the solution. He does not have any fever nor chills. Denies headache no dizziness. Denies any abdominal pain nausea vomiting heartburn indigestion. Bowels are w orking without any gross blood in it. He had lost 32 lb in the previous 3 months. Now he is starting to eat better and gain weight. He does urinate a lot. Denies joint pains or muscle ache. His legs feel weak, like cement. He is in good spirits. His girlfriend has psychosomatic issues. The radiation therapy went well. He had been seen by radiation. They elected to restage him. He had a staging MRI of the brain on 11/28 which revealed: Senescent changes. Cortical and deep atrophy and extensive white matter signal changes. No evidence of a superimposed acute process. No evidence of intracranial metastases. He had a PET scan done 12/04/2021 at [facility] which revealed: Abnormal FDG uptake in right lower lobe lung mass suggesting malignancy with central necrosis. Focal increased activity within the right hilar lymph nodes suggesting metastatic adenopathy, SUV of 6.66. Interim history: He was seen initially on 09/29/2021. He was lost to follow-up for a few months. He then came back, on 12/16/21. Previous history: He has a history of severe dementia common and multiple comorbidities. He presented with symptoms of a cough and shortness of breath. A CT scan of the chest on 04/29, that revealed: New oval-shaped nodule/mass in the superior segment of the right lower lobe worrisome for neoplasm. Stable focal cystic bronchiectasis in the left lower lobe. Enlarged heart. Coronary artery calcification. Asymmetric right-sided gynecomastia. Clinical correlation and follow-up mammogram or ultrasound recommended. PET scan from07/29: His PET scan revealed: 1. 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 There is some central photopenia, most likely due to central necrosis. 2. No additional abnormalities suspicious for metastatic or other malignant lesions are noted. 3. Vascular calcifications including coronary. On 09/03 he underwent navigational bronchoscopy with fluoro now and transbronchial and endobronchial biopsies right lower lobe lung mass, washings right lower lobe superior segment, endobronchial ultrasound with biopsy multiple lymph node stations, by Dr. Jolley at [facility]. Pathology of the transthoracic needle biopsies right lower lobe lung mass, washings superior segment right lower lobe, revealed: Necrotic, non-small cell carcinoma, compatible with squamous cell carcinoma. Immunohistochemical stains: Negative for TTF 1, synaptophysin and chromogranin. Rare positivity for P40. Right paratracheal and subcarinal lymph node biopsy negative. He tells me he is here for a consultation. He has an appointment with radiation at [facility] on 10/14. ROS: FAMILY HISTORY: Denies any known family history of a malignancy. SOCIAL HISTORY: He worked at the [employer]. He is not . He is . He has 1 son. He used to smoke 2 pack a day. He is still smoking but a bit less. He is exposed to second-line smoke through his girlfriend. He used to drink heavily but 25 years ago. Review of Systems - Constitutional Reports no additional constitutional complaints, Denies weakness, Reports weight gain - Eyes Reports no additional eye complaints - ENT Reports no additional ear, nose, mouth, and throat complaints - Cardiovascular Reports no additional cardiovascular complaints - Respiratory Reports no additional respiratory complaints - Gastrointestinal Reports no additional gastrointestinal complaints - Genitourinary Genitourinary: Reports no additional male genitourinary complaints - Musculoskeletal Reports no additional musculoskeletal complaints - Integumentary/Breasts Skin/Breast: Reports no additional skin complaints - Neurologic Reports no additional neurologic complaints - Psychiatric Reports no additional psychiatric complaints - Endocrine Reports no additional endocrine complaints - Hematologic/Lymphatic Reports no additional hematologic/lymphatic complaints - Allergic/Immunologic Reports no additional allergic/immunologic complaints PMFSH Medical History: Medical History (Last Reviewed 07/16/22 @ 12:04 by Carmel Grider CMA) Asthma CAD (coronary artery disease) Cerebral infarction COPD (chronic obstructive pulmonary disease) Diabetes mellitus type 2, insulin dependent Encephalopathy GERD (gastroesophageal reflux disease) Gynecomastia Hyperlipidemia Hypertension Ischemic cardiomyopathy Right lower lobe lung mass Scrotal abscess Smoker TIA (transient ischemic attack) Tubular adenoma of colon Venous stasis dermatitis of both lower extremities Vitamin B 12 deficiency Functional capacity: wheelchair bound Patient : No Family History: Family History (Last Reviewed 07/16/22 @ 12:04 by Carmel Grider CMA) Son HTN (hypertension) Surgical History: Surgical History (Last Reviewed 07/16/22 @ 12:04 by Carmel Grider CMA) History of colonoscopy History of exploratory laparotomy History of heart artery stent History of hernia repair History of hydrocelectomy History of left inguinal hernia repair History of skin graft Social History: Social History (Last Reviewed 07/16/22 @ 12:04 by Carmel Grider CMA) Living Situation History: Household Members: Significant Other Housing: Apartment Are you a primary youth career specialist to a significant other at home: No Do you presently have visiting nurse or other home services: No Alcohol History Details: 1. How often do you have a drink containing alcohol?: a. Never Tobacco History: Patient Tobacco Use Status: Current everyday Tobacco Tobacco use type: Cigarette Cigarette Packs Per Day: 0.5 Years Smoked: unknown Substance Use History: Use of substances other than those prescribed or required for medical reasons : No Substance Use Type: Marijuana Domestic Abuse History: Have you been hit, kicked, punched, or otherwise hurt by someone within the past year? If so, by whom?: No Do you feel safe in your current relationship?: Yes Homicidal Assessment: Do you have thoughts of harming others: None Do you have a plan to hurt others: No Plan Do you have the means to hurt others: No Nutrition Assessment: Recently lost weight without trying: No Patient : No Occupation Assessmet: service: No Current occupational status: retired Oncology Screenings - ECOG Performance Status ECOG Performance Status: 2 Home Medications and Allergies Home Medications Medication Instructions Recorded Confirmed Type atorvastatin 80 mg tablet 1 tab PO DAILY 12/01/20 07/16/22 History cyanocobalamin (vitamin B-12) 1 tab PO DAILY 12/01/20 07/16/22 History 1,000 mcg tablet,extended release docusate sodium 100 mg capsule 1 cap PO Q12H PRN Constipation 12/01/20 07/16/22 History (DOK) furosemide 20 mg tablet 1.5 tab PO DAILY 12/01/20 07/16/22 History triamcinolone acetonide 0.1 % 0.1 appl topical BID 12/01/20 07/16/22 History topical cream apixaban 5 mg tablet (Eliquis) 5 mg PO BID 06/12/22 07/16/22 History digoxin 125 mcg (0.125 mg) tablet 125 mcg PO DAILY 06/12/22 07/16/22 History ferrous sulfate 324 mg (65 mg 324 mg PO DAILY 06/12/22 07/16/22 History iron) tablet,delayed release albuterol sulfate 2.5 mg/0.5 mL 5 mg inhalation Q4H 07/16/22 07/16/22 History solution for nebulization albuterol sulfate 90 mcg/actuation 2 puff inhalation Q4-6H PRN 07/16/22 07/16/22 History aerosol inhaler Shortness Of Breath Or Wheezing Allergies Allergy/AdvReac Type Severity Reaction Status Date / Time No Known Allergies Allergy Mild Verified 07/16/22 12:04 Exam Vital signs: Vital Signs Temp 96.8 F 06/12/22 10:08 Pulse 80 06/12/22 10:08 Resp 14 06/12/22 10:08 BP 126/60 06/12/22 10:08 Pulse Ox 96 06/12/22 10:08 O2 Del Method 06/12/22 10:08 Weight 61.5 kg BMI result Body Mass Index 24.0 - Constitutional Present: mild distress - Routine HEENT Exam Head: Present: normal inspection Eye: Present: normal appearance ENT: Present: mucous membranes moist - Routine Neck Exam Present: full ROM - Routine Respiratory Exam Present: decreased breath sounds - Routine Cardiovascular Exam Cardiovascular: Present: RRR, S1, S2 - Routine Abdominal Exam Present: soft, nontender - Routine Extremities Exam Present: nontender - Routine Back/Spine/Pelvis Exam Back/Spine: Present: full ROM - Routine Skin Exam Present: intact, normal turgor - Routine Neurological Exam Present: alert, oriented X3. Absent: motor deficit - Detailed Neurological Exam: Coma Scale Eye Opening: Spontaneous (4) - Routine Psychiatric Exam Present: normal affect Data - Labs CBC & Chem 7: 07/16/22 11:57 07/16/22 11:57 Assessment and Plan Patient Active problem list reviewed?: Yes (1) Cancer of lower lobe of right lung Status: Acute Assessment and plan: 76 year-old gentleman, a 2 pack per day smoker, with Alzheimer's and multiple comorbidities. Diagnosed with squamous cell carcinoma of the right lower lung. He initially presented with a CT scan of the chest on 04/29, that revealed: New oval-shaped nodule/mass in the superior segment of the right lower lobe worrisome for neoplasm. Stable focal cystic bronchiectasis in the left lower lobe. Enlarged heart. Coronary artery calcification. Asymmetric right-sided gynecomastia. Clinical correlation and follow-up mammogram or ultrasound recommended. His initial PET scan revealed: 1. 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 There is some central photopenia, most likely due to central necrosis. 2. No additional abnormalities suspicious for metastatic or other malignant lesions are noted. 3. Vascular calcifications including coronary. He had a navigational bronchoscopy with biopsy and endobronchial ultrasound for staging purposes which was done on 09/03. Pathology of the transthoracic needle biopsies right lower lobe lung mass, washings superior segment right lower lobe, revealed: Necrotic, non-small cell carcinoma, compatible with squamous cell carcinoma. Immunohistochemical stains: Negative for TTF 1, synaptophysin and chromogranin. Rare positivity for P 40. Right paratracheal and subcarinal lymph node biopsy negative. He was lost to follow up. He then came back, on 12/16. He had been seen by radiation. They elected to restage him. He had a staging MRI of the brain on 11/28 which revealed: Senescent changes. Cortical and deep atrophy and extensive white matter signal changes. No evidence of a superimposed acute process. No evidence of intracranial metastases. He had a PET scan done 12/04/2021 at [facility] which revealed: Abnormal FDG uptake in right lower lobe lung mass suggesting malignancy with central necrosis. Focal increased activity within the right hilar lymph nodes suggesting metastatic adenopathy, SUV of 6.66. He has missed a few appointments here. The repeat PET scan from March revealed: Disease confined to the chest. We proceeded with radiation therapy. He just completed the radiation in Mid May. He has a follow-up appointment there on 06/22. He appears to be holding his own. PLAN: The plan was to re-stage him with imaging. His scan was scheduled this week however they could not make it. It has been CT scheduled for 07/23. Hopefully he has responded well to the RT. It will buy him more time. In the meantime, l checked baseline labs including tumor marker: CEA level; 6.40. He will return in a couple of months for a follow up. All their questions were answered to their satisfaction. Thanks, CC: Dr. Jolley. Dr. Terrell. - Time Spent With Patient Time Spent with Patient (in minutes): 25
[2022-07-16 11:50] VITALS: BP 127/89; PULSE 110; RESP 14; TEMP 36.2; O2SAT 95; BMI 18.5
[2022-07-16 12:07] LABS: MANUAL DIFF FLAG NO
[2022-07-16 12:09] LABS: Basophils Percent Auto 0.1 % (0-2); Eosinophils Absolute Auto 0.2 X10*3/uL (0.0-0.4); Eosinophils Percent Auto 2.6 % (0-4); Hematocrit 37.6 % (42.0-52.0); Hemoglobin 12.1 g/dl (14.0-18.0); Imm Gran Abs Auto 0.03 X10*3/uL (0.00-0.03); Imm Gran Pct Auto 0.4 % (0.0-0.4); Lymphocytes Absolute Auto 0.6 X10*3/uL (1.2-4.9); Lymphocytes Percent Auto 7.7 % (20-40); Mean Corpuscular HGB Conc 32.2 g/dl (31.0-36.0); Mean Corpuscular Hemoglobin 30.8 pg (27.0-33.0); Mean Corpuscular Volume 95.7 fL (80.0-98.0); Mean Platelet Volume 9.6 fL (9.4-12.4); Monocytes Absolute Auto 0.6 X10*3/uL (0.1-1.2); Monocytes Percent Auto 8.7 % (2-11); Neutrophils Absolute Auto 5.9 x10*3/uL (2.0-8.3); Neutrophils Percent Auto 80.5 % (45-73); Platelet Count 274 X10*3/uL (160-400); Red Blood Count 3.93 X10*6/uL (4.60-5.80); Red Cell Distribution Width 14.6 % (11.0-16.0); White Blood Count 7.4 X10*3/uL (4.8-10.8)
[2022-07-16 12:24] LABS: Alanine Aminotransferase 11 U/L (0-40); Albumin Level 3.6 g/dL (3.5-5.0); Alkaline Phosphatase 71 U/L (39-117); Anion Gap 18 (12-20); Aspartate Amino Transferase 15 U/L (5-37); Bilirubin Total 0.7 mg/dL (0.0-1.0); Blood Urea Nitrogen 17 mg/dL (9-16); Calcium 8.6 mg/dL (8.4-10.2); Carbon Dioxide 27 mmol/L (22-29); Chloride 103 mmol/L (96-108); Creatinine Clr Calc Pharmacy 39.5; Estimated Glomerular Filt Rate > 60; Glucose Random 119 mg/dL (60-115); Potassium 4.6 mmol/L (3.3-5.1); Sodium 143 mmol/L (135-145); Total Protein 6.8 g/dL (6.5-8.0)
--- NOTE | 2022-07-16 15:50 | MHC.HEMONCMA ---
Pt was in for follow up. Clinical summary reviewed and updated, VSS. Labs were drawn. Pt to return in 3 months.
== END 2022-09-15 | disposition home or self-care (01) ==
LOC: HO.ONC 11:40
PROVIDERS: PCP Internal Medicine; Referring Provider Surgery; Visit Provider Internal Medicine Medical Oncology
DX: C34.31 Malignant neoplasm of lower lobe, right bronchus or lung (principal); G30.9 Alzheimer's disease, unspecified; F02.80 Dementia in other diseases classified elsewhere, unspecified severity, without behavioral disturbance, psychotic disturbance, mood disturbance, and anxiety; F17.210 Nicotine dependence, cigarettes, uncomplicated; Z92.3 Personal history of irradiation
CPT/HCPCS: 36415; 80053; 82378; 85025; 99204; 99213; 99214

== ENCOUNTER 2022-07-23 15:39 | Outpatient (REF) | payer MEDICARE, MEDICAID, SELFPAY ==
--- NOTE | ~2022-07-23 | CT_ITS ---
EXAMINATION: CT CHEST WITHOUT CONTRAST CLINICAL INFORMATION: Follow-up non-small cell CA. COMPARISON: PET/CT 07/29/2021. TECHNIQUE: Multidetector volumetric CT imaging of the chest was done. Axial MIP volume rendering provided. Sagittal and coronal reformatted images were obtained. This CT examination was performed using dose optimization techniques as appropriate, variously including the following: *Automated exposure control *Adjustment of mA and/or kV according to patient size (this includes techniques or standardized protocols for targeted exams where dose is matched to indication/reason for exam; i.e. 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 LUNGS: Again visualized is a right lower lobe air-filled lesion with adjacent air bronchogram and parenchymal opacity extending posterior to the hilum to the pleura. The lesion was more solid on CT component of PET study from 07/29/2021. There is adjacent pleural thickening. There are no new lesions visualized. MEDIASTINUM: The heart size is borderline enlarged. No pericardial effusion seen. Small shotty lymph nodes are seen in the mediastinum. The thyroid lobes are symmetrical and normal. The central trachea and the bronchi are widely patent. CORONARY ARTERY CALCIFICATION: Moderate coronary artery calcifications are seen. PLEURA: There is mild right posterior pleural thickening. AXILLA: No lymphadenopathy. There is soft tissue density in the retroareolar right breast suggestive of gynecomastia. Minimal soft tissue density seen in the left breast region. UPPER ABDOMEN: Visualized liver, spleen, pancreas and bilateral adrenal glands are unremarkable. There is radiopaque gravel or debris within the gallbladder. OSSEOUS STRUCTURES: There is no aggressive lytic or sclerotic process seen. There is mild ventral spondylosis. CT/CT chest wo IV con IMPRESSION: Significant improvement in the solid mass in right lower lobe superior segment. It is round and much smaller than previous study with adjacent chronic scarring or atelectasis and pleural thickening. There are no new lesions seen. No abnormal lymphadenopathy. Moderate coronary artery calcifications. Suspect bilateral gynecomastia. Fleischner guidelines were followed.
[2022-07-23 16:03] LABS: MANUAL DIFF FLAG NO
[2022-07-23 16:07] LABS: Eosinophils Absolute Auto 0.1 X10*3/uL (0.0-0.4); Eosinophils Percent Auto 1.5 % (0-4); Hematocrit 33.2 % (42.0-52.0); Hemoglobin 10.8 g/dl (14.0-18.0); Imm Gran Abs Auto 0.01 X10*3/uL (0.00-0.03); Imm Gran Pct Auto 0.2 % (0.0-0.4); Lymphocytes Absolute Auto 0.5 X10*3/uL (1.2-4.9); Lymphocytes Percent Auto 8.8 % (20-40); Mean Corpuscular HGB Conc 32.5 g/dl (31.0-36.0); Mean Corpuscular Volume 95.4 fL (80.0-98.0); Mean Platelet Volume 10.1 fL (9.4-12.4); Monocytes Absolute Auto 0.6 X10*3/uL (0.1-1.2); Monocytes Percent Auto 10.4 % (2-11); Neutrophils Absolute Auto 4.9 x10*3/uL (2.0-8.3); Neutrophils Percent Auto 79.1 % (45-73); Platelet Count 204 X10*3/uL (160-400); Red Blood Count 3.48 X10*6/uL (4.60-5.80); Red Cell Distribution Width 14.6 % (11.0-16.0); White Blood Count 6.1 X10*3/uL (4.8-10.8)
[2022-07-23 16:41] LABS: Alanine Aminotransferase 15 U/L (0-40); Albumin Level 3.7 g/dL (3.5-5.0); Alkaline Phosphatase 58 U/L (39-117); Anion Gap 18 (12-20); Aspartate Amino Transferase 19 U/L (5-37); Bilirubin Total 0.4 mg/dL (0.0-1.0); Blood Urea Nitrogen 39 mg/dL (9-16); Calcium 8.1 mg/dL (8.4-10.2); Carbon Dioxide 25 mmol/L (22-29); Chloride 101 mmol/L (96-108); Estimated Glomerular Filt Rate 48; Glucose Random 138 mg/dL (60-115); Potassium 4.2 mmol/L (3.3-5.1); Sodium 140 mmol/L (135-145); Total Protein 6.7 g/dL (6.5-8.0)
== END 2022-07-23 15:40 | disposition home or self-care (01) ==
LOC: HO.CT 15:39
PROVIDERS: PCP Internal Medicine; Visit Provider Internal Medicine Medical Oncology
DX: R91.8 Other nonspecific abnormal finding of lung field (principal)
CPT/HCPCS: 36415; 71250; 80053; 85025

== ENCOUNTER 2022-08-14 11:59 | Outpatient (REF) | payer MEDICARE, MEDICAID, SELFPAY ==
[2022-08-14 13:40] LABS: Anion Gap 21 (12-20); Blood Urea Nitrogen 32 mg/dL (9-16); Carbon Dioxide 22 mmol/L (22-29); Chloride 100 mmol/L (96-108); Estimated Glomerular Filt Rate 46; Potassium 4.1 mmol/L (3.3-5.1); Sodium 139 mmol/L (135-145)
[2022-08-14 13:46] LABS: B Type Natriuretic Peptide 487 pg/mL (<100)
[2022-08-14 14:37] LABS: Glucose Random 371 mg/dL (60-115)
== END 2022-08-14 12:00 | disposition home or self-care (01) ==
LOC: HO.LAB 11:59
PROVIDERS: Absent Provider Internal Medicine; PCP Internal Medicine; Visit Provider General Practice
DX: R60.0 Localized edema (principal)
CPT/HCPCS: 36415; 80048; 83880

== ENCOUNTER 2022-08-20 20:38 | Inpatient (IN) | payer MEDICARE, MEDICAID, SELFPAY ==
[2022-08-20] VITALS (7 sets, daily range): BP systolic 96–111; BP diastolic 64–78; PULSE 126–144; RESP 20–33; TEMP 36.4–36.7; O2SAT 92–100; BMI 27.1; BMI 25.9
--- NOTE | ~2022-08-20 | CT_ITS ---
EXAMINATION: CT CHEST WITHOUT CONTRAST CLINICAL INFORMATION: Cavitary lung lesion. COMPARISON: CT chest 07/23/2022. PET/CT 07/29/2021. TECHNIQUE: Multidetector volumetric CT imaging of the chest was done. Axial MIP volume rendering provided. Sagittal and coronal reformatted images were obtained. This CT examination was performed using dose optimization techniques as appropriate, variously including the following: *Automated exposure control *Adjustment of mA and/or kV according to patient size (this includes techniques or standardized protocols for targeted exams where dose is matched to indication/reason for exam; i.e. extremities or head) *Use of iterative reconstruction technique DLP: 247 mGy-cm FINDINGS: LUNGS: Redemonstration of cavitation and consolidative opacities in the posterior right upper lobe, within the area of a previously seen pulmonary mass on PET/CT from 07/29/2021. There is marked worsening of the pulmonary aeration with new coarse interlobular septal thickening and patchy opacities bilaterally but more noticeable in the right inferior upper lobe and right lower lobe when compared to recent prior from 07/23/2022. MEDIASTINUM: Cardiomegaly. Increased mediastinal lymphadenopathy compared to 07/23/2022, for instance a right upper paratracheal lymph node measuring 1.3 cm short axis (3:22) previously 1 cm. Evaluation of the hilar structures is limited in the absence of IV contrast. Enlarged pulmonary artery suggesting pulmonary hypertension. Extensive coronary artery calcifications. The thoracic aorta is of normal diameter. Normal appearance of the thyroid gland. CORONARY ARTERY CALCIFICATION: Present, severe. PLEURA: New right-sided nodular-like pleural thickening and pleural effusion. No pneumothorax. AXILLA: Asymmetric right-sided gynecomastia. UPPER ABDOMEN: Limited noncontrast examination, unremarkable. OSSEOUS STRUCTURES: Thoracic spondylosis. No aggressive appearing osseous abnormalities. CT/CT chest wo IV con IMPRESSION: 1. Worsening pulmonary aeration with new coarse interlobular septal thickening and patchy opacities in the right lung and less so left lower lobe. New nodular-like right-sided pleural thickening and pleural effusion. Findings are nonspecific and could be associated with malignancy, including lymphangitic carcinomatosis and malignant pleural effusion, or an infectious/inflammatory process. Recommend clinical correlation and a very short-term follow-up. 2. Again noted cavitation and consolidative lung parenchyma in the posterior aspect of the superior right lower lobe in the area of a previously seen mass on a PET CT from 2020. 3. Worsening mediastinal lymphadenopathy. 4. Nonspecific asymmetric right-sided gynecomastia. 5. Cardiomegaly with extensive coronary artery calcifications. Recommend correlation with cardiovascular and coronary risk factors.
--- NOTE | ~2022-08-20 | XR_ITS ---
EXAMINATION: XR CHEST CLINICAL INFORMATION: Shortness of COMPARISON: Chest CT 07/23/2022 and selective priors TECHNIQUE: AP upright portable view of the chest was obtained. FINDINGS: Low lung volumes. Suspect patchy airspace disease in the right midlung. Previous CT with a cavitary right lower lobe lesion. This is likely obscured behind the rotated cardiac silhouette and hilum. Reticular lung markings with emphysema and fibrosis on recent CT. Stable prominence of the heart and mediastinum. Nonobstructive gas pattern. XR/XR chest 1V IMPRESSION: 1. Patchy right midlung airspace disease. 2. Previous cross-sectional imaging with cavitary right lower lobe lesion. This is likely obscured by the heart border. Recommend follow-up CT. 3. 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
--- NOTE | 2022-08-20 20:55 | ECG_ITS ---
Test Reason : SOB Blood Pressure : / mmHG Vent. Rate : 136 BPM Atrial Rate : 000 BPM P-R Int : 000 ms QRS Dur : 132 ms QT Int : 336 ms P-R-T Axes : 000 -71 097 degrees QTc Int : 505 ms Atrial fibrillation with rapid ventricular response Left anterior fascicular block Right bundle branch block Possible Lateral infarct (cited on or before 24-MAR-2005) Inferior infarct (cited on or before 23-MAR-2005) Abnormal ECG When compared with ECG of 01-DEC-2020 13:55, Atrial fibrillation has replaced Sinus rhythm Vent. rate has increased BY 56 BPM Questionable change in initial forces of Lateral leads Referred By: Madhuri Lucas Electronically Signed By:SERGIO KEBEDE MD
--- NOTE | 2022-08-20 21:07 | ED.SOB ---
HPI - SOB/Dyspnea General Chief Complaint: General Medical Stated Complaint: sob chf Time Seen by Provider: 08/20/22 21:05 Source: patient and EMS Mode of arrival: EMS Limitations: no limitations History of Present Illness HPI Narrative: Patient comes to emergency room complaining of shortness of breath. Patient has history of dementia, patient is restarting. According to EMS, patient has history of COPD, CHF. When they did an EKG, it showed atrial fibrillation, seems that this is a new diagnosis for the patient. The family did not provide much information. EMS states that the family was having an argument with each other, trying to decide if patient should go into hospice care versus having full treatment. At this time, we do not know the patient's code status, we are trying to get in touch with the family. Related Data Home Medications Medication Instructions Recorded Confirmed atorvastatin 80 mg tablet 1 tab PO BEDTIME 12/01/20 08/20/22 cyanocobalamin (vitamin B-12) 1 tab PO DAILY 12/01/20 08/20/22 1,000 mcg tablet,extended release apixaban 5 mg tablet (Eliquis) 5 mg PO BID 06/12/22 08/20/22 digoxin 125 mcg (0.125 mg) tablet 125 mcg PO DAILY 06/12/22 08/20/22 albuterol sulfate 90 mcg/actuation 2 puff inhalation Q4-6H PRN 07/16/22 08/20/22 aerosol inhaler Shortness Of Breath Or Wheezing albuterol sulfate 2.5 mg/3 mL 1 amp inhalation TID 08/20/22 08/20/22 (0.083 %) solution for nebulization furosemide 40 mg tablet 1 tab PO DAILY 08/20/22 08/20/22 insulin glargine 100 unit/mL (3 6 unit subcut BEDTIME 08/20/22 08/20/22 mL) subcutaneous pen (Lantus Solostar U-100 Insulin) insulin lispro 100 unit/mL See Rx Instructions .Route .COMPLEX 08/20/22 08/20/22 subcutaneous pen (Humalog KwikPen (U-100) Insulin) metformin 500 mg tablet,extended 2 tab PO BID 08/20/22 08/20/22 release 24 hr metoprolol succinate 50 mg 1 tab PO DAILY 08/20/22 08/20/22 tablet,extended release 24 hr multivitamin 1 tab PO DAILY 08/20/22 08/20/22 Allergies Allergy/AdvReac Type Severity Reaction Status Date / Time No Known Allergies Allergy Mild Verified 07/16/22 12:04 Review of Systems Review of Systems: Yes Other (History of dementia, poor historian) [facility] Past Medical History Medical History Asthma CAD (coronary artery disease) Cerebral infarction COPD (chronic obstructive pulmonary disease) Diabetes mellitus type 2, insulin dependent Encephalopathy GERD (gastroesophageal reflux disease) Gynecomastia Hyperlipidemia Hypertension Ischemic cardiomyopathy Right lower lobe lung mass Scrotal abscess Smoker TIA (transient ischemic attack) Tubular adenoma of colon Venous stasis dermatitis of both lower extremities Vitamin B 12 deficiency Surgical History History of colonoscopy History of exploratory laparotomy History of heart artery stent History of hernia repair History of hydrocelectomy History of left inguinal hernia repair History of skin graft Family History Family History Son HTN (hypertension) Social History Social History Household Members: Significant Other Housing: Apartment Are you a primary medical care evaluation specialist to a significant other at home: No Do you presently have visiting nurse or other home services: No Alcohol intake: former Patient Tobacco Use Status: Current everyday Tobacco user Tobacco use type: Cigarette Cigarette Packs Per Day: 0.5 Years Smoked: unknown Use of substances other than those prescribed or required for medical reasons: Unable to respond Substance Use Type: Marijuana Advance Directives: Yes Advance Directives on File: Yes Advance Directives Date on File: 12/05/20 service: No Current occupational status: retired Physical Exam Vital Signs: Vital Signs: Last Vital Signs Temp 98.1 F 08/20/22 21:57 Pulse 133 H 08/20/22 22:20 Resp 22 H 08/20/22 22:33 BP 96/78 08/20/22 22:20 Pulse Ox 100 08/20/22 22:20 O2 Del Method 08/20/22 22:20 O2 Flow Rate 3 08/20/22 21:57 BMI result Body Mass Index 25.9 Const: Other: Appearance: Alert. Oriented X1. No acute distress. Eyes: Pupils equal, round and reactive to light. ENT: Pharynx normal. Neck: Normal inspection. Neck supple. No lymph nodes noted. No crepitus CVS: Tachycardic Respiratory: No respiratory distress. Bilateral crackles, No Wheezing. No rales Abdomen: Soft and nontender. No rigidity. No distention. Skin: Skin warm and dry. Normal skin color. Normal skin turgor. Extremities: +3 pitting edema bilaterally Neuro: Oriented X 1. CN 2 through 12 grossly intact Psych: calm, cooperative Course Course Course Narrative: Patient will be getting 20 mg of Lasix and 5 mg of metoprolol. At this time, if we give Cardizem, it is likely that he will tank patient's blood pressure. Patient seems to be struggling reading. Patient was started on BiPAP. I discussed the code status with the patient's daughter who is the healthcare proxy. States that the patient is DNR DNI but we are able to use BiPAP. In this admission, they are considering switching the patient to either comfort measures only versus hospice. 23:29, x-ray shows patchy right midlung airspace disease, right lower lobe lesion. Patient known to have metastatic cancer to the lungs. Patient has severe CHF exacerbation, fluids will not be given, patient is DNR DNI. Antibiotics will be started, given the patient's medical history of COPD. Sepsis not suspected. Lactic acidosis likely secondary from respiratory distress secondary to CHF, not pneumonia I discussed the patient with Dr. Sanon, patient is not to get any Cardizem or metoprolol due to his low blood pressure. Patient will be given 150 mg of amiodarone followed by amiodarone drip. I discussed the patient with Dr. [place], patient being admitted. Medications Administered Discontinued Medications Generic Name Dose Route Start Last Admin Trade Name Freq PRN Reason Stop Dose Admin Digoxin 0.25 mg 08/20/22 22:16 08/20/22 22:29 Digoxin 0.5 Mg/2 Ml Ampul IVPUSH 08/20/22 22:17 0.25 mg ONCE ONE Administration Furosemide 20 mg 08/20/22 21:34 08/20/22 21:45 Furosemide 20 Mg/2 Ml Vial IVPUSH 08/20/22 21:35 20 mg ONCE ONE Administration Protocol Metoprolol Tartrate 5 mg 08/20/22 21:34 08/20/22 21:45 Metoprolol Tartrate 5 Mg/5 Ml Vial IVPUSH 08/20/22 21:35 5 mg ONCE ONE Administration MDM - SOB/Dyspnea Lab Data Result diagrams: 08/20/22 21:21 08/20/22 21:50 Labs: Lab Results 08/20/22 08/20/22 08/20/22 Range/Units 21:20 21:21 21:21 WBC 5.6 (4.8-10.8) X10*3/uL RBC 3.33 L (4.60-5.80) X10*6/uL Hgb 10.6 L (14.0-18.0) g/dl Hct 33.3 L (42.0-52.0) % MCV 100.0 H (80.0-98.0) fL MCH 31.8 (27.0-33.0) pg MCHC 31.8 (31.0-36.0) g/dl RDW 14.7 (11.0-16.0) % Plt Count 178 (160-400) X10*3/uL MPV 9.7 (9.4-12.4) fL Immature Gran % (Auto) 0.4 (0.0-0.4) % Neut % (Auto) 74.1 H (45-73) % Lymph % (Auto) 12.3 L (20-40) % [place] % (Auto) 11.1 H (2-11) % Eos % (Auto) 2.1 (0-4) % Baso % (Auto) 0.0 (0-2) % Lymph # (Auto) 0.7 L (1.2-4.9) X10*3/uL [place] # (Auto) 0.6 (0.1-1.2) X10*3/uL Eos # (Auto) 0.1 (0.0-0.4) X10*3/uL Baso # (Auto) 0.0 (0.0-0.2) X10*3/uL Abs Immat Gran (auto) 0.02 (0.00-0.03) X10*3/uL Absolute Neuts (auto) 4.1 (2.0-8.3) x10*3/uL Absolute Nucleated RBC 0.030 H (0.0-0.012) X10*3/uL Nucleated RBC % (auto) 0.5 H (0.0-0.2) /100WBC PT 22.0 H (10.0-13.1) SEC INR 1.9 H (0.9-1.1) VBG pH (7.32-7.43) VBG pCO2 mmHg VBG pO2 mmHg VBG HCO3 (22-26) mmol/L VBG O2 Saturation % VBG Base Excess mmol/L Sodium (135-145) mmol/L Potassium (3.3-5.1) mmol/L Chloride (96-108) mmol/L Carbon Dioxide (22-29) mmol/L Anion Gap (12-20) BUN (9-16) mg/dL Creatinine (0.5-1.4) mg/dL Estim Creat Clear Calc Estimated GFR Random Glucose (60-115) mg/dL Lactic Acid 2.4 H* (0.5-2.0) mmol/L Calcium (8.4-10.2) mg/dL Total Bilirubin (0.0-1.0) mg/dL AST (5-37) U/L ALT (0-40) U/L Alkaline Phosphatase (39-117) U/L Troponin I High Sens (<3.5-35.0) ng/L B-Natriuretic Peptide (<100) pg/mL Total Protein (6.5-8.0) g/dL Albumin (3.5-5.0) g/dL Ethyl Alcohol mg/dL Influenza Type A (PCR) (Negative) Influenza Type B (PCR) (Negative) RSV RNA Qual (PCR) (Negative) SARS-CoV-2 RNA (RT-PCR) (Negative) 08/20/22 08/20/22 08/20/22 Range/Units 21:21 21:21 21:21 WBC (4.8-10.8) X10*3/uL RBC (4.60-5.80) X10*6/uL Hgb (14.0-18.0) g/dl Hct (42.0-52.0) % MCV (80.0-98.0) fL MCH (27.0-33.0) pg MCHC (31.0-36.0) g/dl RDW (11.0-16.0) % Plt Count (160-400) X10*3/uL MPV (9.4-12.4) fL Immature Gran % (Auto) (0.0-0.4) % Neut % (Auto) (45-73) % Lymph % (Auto) (20-40) % [place] % (Auto) (2-11) % Eos % (Auto) (0-4) % Baso % (Auto) (0-2) % Lymph # (Auto) (1.2-4.9) X10*3/uL [place] # (Auto) (0.1-1.2) X10*3/uL Eos # (Auto) (0.0-0.4) X10*3/uL Baso # (Auto) (0.0-0.2) X10*3/uL Abs Immat Gran (auto) (0.00-0.03) X10*3/uL Absolute Neuts (auto) (2.0-8.3) x10*3/uL Absolute Nucleated RBC (0.0-0.012) X10*3/uL Nucleated RBC % (auto) (0.0-0.2) /100WBC PT (10.0-13.1) SEC INR (0.9-1.1) VBG pH (7.32-7.43) VBG pCO2 mmHg VBG pO2 mmHg VBG HCO3 (22-26) mmol/L VBG O2 Saturation % VBG Base Excess mmol/L Sodium (135-145) mmol/L Potassium (3.3-5.1) mmol/L Chloride (96-108) mmol/L Carbon Dioxide (22-29) mmol/L Anion Gap (12-20) BUN (9-16) mg/dL Creatinine (0.5-1.4) mg/dL Estim Creat Clear Calc Estimated GFR Random Glucose (60-115) mg/dL Lactic Acid (0.5-2.0) mmol/L Calcium (8.4-10.2) mg/dL Total Bilirubin (0.0-1.0) mg/dL AST (5-37) U/L ALT (0-40) U/L Alkaline Phosphatase (39-117) U/L Troponin I High Sens 45.5 H (<3.5-35.0) ng/L B-Natriuretic Peptide 1757 H (<100) pg/mL Total Protein (6.5-8.0) g/dL Albumin (3.5-5.0) g/dL Ethyl Alcohol mg/dL Influenza Type A (PCR) NEGATIVE (Negative) Influenza Type B (PCR) NEGATIVE (Negative) RSV RNA Qual (PCR) NEGATIVE (Negative) SARS-CoV-2 RNA (RT-PCR) NEGATIVE (Negative) 08/20/22 08/20/22 08/20/22 Range/Units 21:26 21:49 21:50 WBC (4.8-10.8) X10*3/uL RBC (4.60-5.80) X10*6/uL Hgb (14.0-18.0) g/dl Hct (42.0-52.0) % MCV (80.0-98.0) fL MCH (27.0-33.0) pg MCHC (31.0-36.0) g/dl RDW (11.0-16.0) % Plt Count (160-400) X10*3/uL MPV (9.4-12.4) fL Immature Gran % (Auto) (0.0-0.4) % Neut % (Auto) (45-73) % Lymph % (Auto) (20-40) % [place] % (Auto) (2-11) % Eos % (Auto) (0-4) % Baso % (Auto) (0-2) % Lymph # (Auto) (1.2-4.9) X10*3/uL [place] # (Auto) (0.1-1.2) X10*3/uL Eos # (Auto) (0.0-0.4) X10*3/uL Baso # (Auto) (0.0-0.2) X10*3/uL Abs Immat Gran (auto) (0.00-0.03) X10*3/uL Absolute Neuts (auto) (2.0-8.3) x10*3/uL Absolute Nucleated RBC (0.0-0.012) X10*3/uL Nucleated RBC % (auto) (0.0-0.2) /100WBC PT (10.0-13.1) SEC INR (0.9-1.1) VBG pH 7.37 (7.32-7.43) VBG pCO2 37 mmHg VBG pO2 45 mmHg VBG HCO3 21 L (22-26) mmol/L VBG O2 Saturation 67.0 % VBG Base Excess -2.7 mmol/L Sodium 134 L (135-145) mmol/L Potassium 5.5 H D (3.3-5.1) mmol/L Chloride 100 (96-108) mmol/L Carbon Dioxide 21 L (22-29) mmol/L Anion Gap 19 (12-20) BUN 38 H (9-16) mg/dL Creatinine 1.62 H (0.5-1.4) mg/dL Estim Creat Clear Calc 33.2 Estimated GFR 42 Random Glucose 152 H D (60-115) mg/dL Lactic Acid (0.5-2.0) mmol/L Calcium 8.2 L (8.4-10.2) mg/dL Total Bilirubin 0.4 (0.0-1.0) mg/dL AST 95 H (5-37) U/L ALT 123 H (0-40) U/L Alkaline Phosphatase 83 D (39-117) U/L Troponin I High Sens (<3.5-35.0) ng/L B-Natriuretic Peptide (<100) pg/mL Total Protein 6.8 (6.5-8.0) g/dL Albumin 3.6 (3.5-5.0) g/dL Ethyl Alcohol < 10 mg/dL Influenza Type A (PCR) (Negative) Influenza Type B (PCR) (Negative) RSV RNA Qual (PCR) (Negative) SARS-CoV-2 RNA (RT-PCR) (Negative) Imaging Data Chest x-ray: Radiologist's impression: FINDINGS: Low lung volumes. Suspect patchy airspace disease in the right midlung. Previous CT with a cavitary right lower lobe lesion. This is likely obscured behind the rotated cardiac silhouette and hilum. Reticular lung markings with emphysema and fibrosis on recent CT. Stable prominence of the heart and mediastinum. Nonobstructive gas pattern. XR/XR chest 1V IMPRESSION: ? 1. Patchy right midlung airspace disease. 2. Previous cross-sectional imaging with cavitary right lower lobe lesion. This is likely obscured by the heart border. Recommend follow-up CT. 3. 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 Critical Care Time Critical Care Time Critical Care Time: Yes Total Critical Care Time: 90 Attestation: I have personally provided critical care time. Time includes review of lab data, radiology results, discussion with consultants, and monitoring for potential decompensation. Intervention performed as documented. Discharge Plan Discharge Clinical Impression: Congestive heart failure, New onset a-fib Patient Disposition: Admitted As Inpatient Prescriptions: No Action cyanocobalamin (vitamin B-12) 1,000 mcg tablet extended release 1 tab PO DAILY atorvastatin 80 mg tablet 1 tab PO BEDTIME digoxin 125 mcg (0.125 mg) Tablet 125 mcg PO DAILY Eliquis 5 mg Tablet 5 mg PO BID albuterol sulfate 90 mcg/actuation Hfa Aerosol Inhaler 2 puff INHALATION Q4-6H PRN (Reason: Shortness Of Breath Or Wheezing) multivitamin Tablet 1 tab PO DAILY furosemide 40 mg tablet 1 tab PO DAILY albuterol sulfate 2.5 mg /3 mL (0.083 %) solution for nebulization 1 amp inhalation TID metoprolol succinate 50 mg tablet extended release 24 hr 1 tab PO DAILY metformin 500 mg tablet extended release 24 hr 2 tab PO BID insulin lispro [Humalog KwikPen Insulin] 100 unit/mL insulin pen See Rx Instructions .ROUTE .COMPLEX Rx Instructions: SLIDING SCALE insulin glargine [Lantus Solostar U-100 Insulin] 100 unit/mL (3 mL) insulin pen 6 unit subcut BEDTIME
--- NOTE | 2022-08-20 21:16 | PC.NURSE ---
pt came and was changed into hospital gown. pt was soiled upon arrival. pt is now cleaned and comfortable in the bed
[2022-08-20 21:28] LABS: MANUAL DIFF FLAG NO
[2022-08-20 21:29] LABS: Eosinophils Absolute Auto 0.1 X10*3/uL (0.0-0.4); Eosinophils Percent Auto 2.1 % (0-4); Hematocrit 33.3 % (42.0-52.0); Hemoglobin 10.6 g/dl (14.0-18.0); Imm Gran Abs Auto 0.02 X10*3/uL (0.00-0.03); Imm Gran Pct Auto 0.4 % (0.0-0.4); Lymphocytes Absolute Auto 0.7 X10*3/uL (1.2-4.9); Lymphocytes Percent Auto 12.3 % (20-40); Mean Corpuscular HGB Conc 31.8 g/dl (31.0-36.0); Mean Corpuscular Hemoglobin 31.8 pg (27.0-33.0); Mean Platelet Volume 9.7 fL (9.4-12.4); Monocytes Absolute Auto 0.6 X10*3/uL (0.1-1.2); Monocytes Percent Auto 11.1 % (2-11); NRBC Pct Auto 0.5 /100WBC (0.0-0.2); Neutrophils Absolute Auto 4.1 x10*3/uL (2.0-8.3); Neutrophils Percent Auto 74.1 % (45-73); Platelet Count 178 X10*3/uL (160-400); Red Blood Count 3.33 X10*6/uL (4.60-5.80); Red Cell Distribution Width 14.7 % (11.0-16.0); White Blood Count 5.6 X10*3/uL (4.8-10.8)
[2022-08-20 21:31] LABS: Venous Blood Gas Refer to POC result
[2022-08-20 21:31] LABS: VBG Base Excess -2.7 mmol/L; VBG HCO3 21 mmol/L (22-26); VBG pCO2 37 mmHg; VBG pH 7.37 (7.32-7.43); VBG pO2 45 mmHg
[2022-08-20 21:34] LABS: INTERNATIONAL NORM RATIO 1.9 (0.9-1.1)
[2022-08-20 21:45] LABS: Lactic Acid 2.4 mmol/L (0.5-2.0)
[2022-08-20] MEDS: Furosemide 20 MG/2 ML VIAL IVPUSH (21:45)
[2022-08-20] MEDS: Metoprolol Tartrate 5 MG/5 ML VIAL IVPUSH (21:45)
[2022-08-20 21:53] LABS: B Type Natriuretic Peptide 1757 pg/mL (<100)
--- NOTE | 2022-08-20 22:02 | PHA.MEDREC ---
Pharmacy Consult ? Medication Reconciliation Pharmacy has completed the medication reconciliation.
[2022-08-20 22:05] LABS: Influenza A PCR NEGATIVE (Negative); Influenza B PCR NEGATIVE (Negative); Resp Syncy Virus RNA Qual PCR NEGATIVE (Negative); SARS COV2 PCR INHOUSE NEGATIVE (Negative)
[2022-08-20 22:12] LABS: Troponin-I High Sensitivity 45.5 ng/L (<3.5-35.0)
[2022-08-20 22:12] LABS: Ethanol < 10 mg/dL
[2022-08-20 22:17] LABS: Alanine Aminotransferase 123 U/L (0-40); Albumin Level 3.6 g/dL (3.5-5.0); Alkaline Phosphatase 83 U/L (39-117); Anion Gap 19 (12-20); Aspartate Amino Transferase 95 U/L (5-37); Bilirubin Total 0.4 mg/dL (0.0-1.0); Blood Urea Nitrogen 38 mg/dL (9-16); Calcium 8.2 mg/dL (8.4-10.2); Carbon Dioxide 21 mmol/L (22-29); Chloride 100 mmol/L (96-108); Creatinine Clr Calc Pharmacy 33.2; Estimated Glomerular Filt Rate 42; Glucose Random 152 mg/dL (60-115); Potassium 5.5 mmol/L (3.3-5.1); Sodium 134 mmol/L (135-145); Total Protein 6.8 g/dL (6.5-8.0)
[2022-08-20] MEDS: Digoxin 0.5 MG/2 ML AMPUL 0.25 MG IVPUSH (22:29)
[2022-08-20 23:25] LABS: Reflex Lactate? Lactic Acid Added
--- NOTE | 2022-08-20 23:58 | PC.NURSE ---
Pt soiled with urine. Pt given pericare and attached to a new condom catheter to obtain a urine sample. Pt given a warm blanket and call leo placed in reach
[2022-08-21] VITALS (12 sets, daily range): BP systolic 105–122; BP diastolic 56–76; PULSE 66–113; RESP 17–25; TEMP 36.4–36.7; O2SAT 92–100
--- NOTE | 2022-08-21 00:42 | PC.NURSE ---
Pt is on the monitor and it shows a-fib,with V-tach, HR 144. Pt meds were administered as order by the provider. Pt work of breathing is improving his O2 is in the 94% and 25RR. Pt has [place] cath and IV 18 on his left AC w/ ultrasound d/t pt upper extremities are swollen. Will continue to monitor.
--- NOTE | 2022-08-21 00:50 | P.HPHOSP_ITS ---
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 As per EMS, they were called because of patient's palpitations/ chest discomfort/mild dyspnea and he was found to be in AFib at the time of EMS arrival. Patient is a poor historian and does not have any complaints at this time. He is awake but disoriented to place, time and person. Unable to have a conversation. Patient's code status was discussed with patient's daughter who is healthcare proxy by ER provider. States that patient is DNR/ DNI and family is considering switching the patient to comfort measures only. Senior Geotechnical Engineer was consulted from the ER who recommended amiodarone bolus followed by amiodarone drip. Review of Systems Review of Systems: Yes Unobtainable due to mental status [facility] Medical History (Updated 08/21/22 @ 01:05 by Abel Wang MD) Asthma CAD (coronary artery disease) Cerebral infarction COPD (chronic obstructive pulmonary disease) Diabetes mellitus type 2, insulin dependent Encephalopathy GERD (gastroesophageal reflux disease) Gynecomastia Hyperlipidemia Hypertension Ischemic cardiomyopathy Right lower lobe lung mass Scrotal abscess Smoker TIA (transient ischemic attack) Tubular adenoma of colon Venous stasis dermatitis of both lower extremities Vitamin B 12 deficiency Family History Son HTN (hypertension) Surgical History History of colonoscopy History of exploratory laparotomy History of heart artery stent History of hernia repair History of hydrocelectomy History of left inguinal hernia repair History of skin graft Social History Household Members: Significant Other Housing: Apartment Are you a primary intensive care ambulance paramedic to a significant other at home: No Do you presently have visiting nurse or other home services: No Alcohol intake: former Patient Tobacco Use Status: Current everyday Tobacco user Tobacco use type: Cigarette Cigarette Packs Per Day: 0.5 Years Smoked: unknown Use of substances other than those prescribed or required for medical reasons: Unable to respond Substance Use Type: Marijuana Advance Directives: Yes Advance Directives on File: Yes Advance Directives Date on File: 12/05/20 service: No Current occupational status: retired Meds Allergies Allergy/AdvReac Type Severity Reaction Status Date / Time No Known Allergies Allergy Mild Verified 07/16/22 12:04 Active Medications: Current Medications Amiodarone HCl 900 mg/ Sodium (Chloride) 518 mls @ 34.533 mls/hr IVCONT .Q15H1M BC; Protocol Pharmacy Consult (Consult Rx Perform Med Rec) 1 each MISCELLANE ONCE PRN PRN Reason: Consult order Home Medications Medication Instructions Recorded Confirmed Last Taken Type atorvastatin 80 mg tablet 1 tab PO BEDTIME 12/01/20 08/20/22 08/19/22 History cyanocobalamin (vitamin B-12) 1 tab PO DAILY 12/01/20 08/20/22 08/19/22 History 1,000 mcg tablet,extended release apixaban 5 mg tablet (Eliquis) 5 mg PO BID 06/12/22 08/20/22 08/19/22 History digoxin 125 mcg (0.125 mg) tablet 125 mcg PO DAILY 06/12/22 08/20/22 08/19/22 History albuterol sulfate 90 mcg/actuation 2 puff inhalation Q4-6H PRN 07/16/22 08/20/22 08/19/22 History aerosol inhaler Shortness Of Breath Or Wheezing albuterol sulfate 2.5 mg/3 mL 1 amp inhalation TID 08/20/22 08/20/22 08/19/22 History (0.083 %) solution for nebulization furosemide 40 mg tablet 1 tab PO DAILY 08/20/22 08/20/22 08/19/22 History insulin glargine 100 unit/mL (3 6 unit subcut BEDTIME 08/20/22 08/20/22 08/19/22 History mL) subcutaneous pen (Lantus Solostar U-100 Insulin) insulin lispro 100 unit/mL See Rx Instructions .Route .COMPLEX 08/20/22 08/20/22 08/19/22 History subcutaneous pen (Humalog KwikPen (U-100) Insulin) metformin 500 mg tablet,extended 2 tab PO BID 08/20/22 08/20/22 08/19/22 History release 24 hr metoprolol succinate 50 mg 1 tab PO DAILY 08/20/22 08/20/22 08/19/22 History tablet,extended release 24 hr multivitamin 1 tab PO DAILY 08/20/22 08/20/22 08/19/22 History Physical Exam Vital Signs and Narrative: Vital Signs: Last Vital Signs Temp 97.5 F 08/20/22 23:49 Pulse 135 H 08/20/22 23:49 Resp 24 H 08/20/22 23:49 BP 100/65 08/20/22 23:49 Pulse Ox 99 08/20/22 23:49 O2 Del Method 08/20/22 23:49 O2 Flow Rate 3 08/20/22 21:57 BMI result Body Mass Index 25.9 Elderly male lying in bed in mild distress Irregularly irregular, S1-S2 heard decreased breath sounds at bases with right sided crackles Abdomen soft nontender, no guarding, no rigidity Patient is awake, alert but disoriented to self, place, time and person ; no focal motor deficit Psych: Normal mood b/l pedal edema + Results Labs CBC and Chem 7: 08/21/22 03:41 08/21/22 03:41 Labs: Laboratory Results - last 24 hr 08/20/22 08/20/22 08/20/22 21:20 21:21 21:21 MCV 100.0 H MCH 31.8 MCHC 31.8 RDW 14.7 Plt Count 178 MPV 9.7 Immature Gran % (Auto) 0.4 Neut % (Auto) 74.1 H Lymph % (Auto) 12.3 L O'Brien % (Auto) 11.1 H Eos % (Auto) 2.1 Baso % (Auto) 0.0 Lymph # (Auto) 0.7 L O'Brien # (Auto) 0.6 Eos # (Auto) 0.1 Baso # (Auto) 0.0 Abs Immat Gran (auto) 0.02 Absolute Neuts (auto) 4.1 Absolute Nucleated RBC 0.030 H Nucleated RBC % (auto) 0.5 H PT 22.0 H INR 1.9 H VBG pH VBG pCO2 VBG pO2 VBG HCO3 VBG O2 Saturation VBG Base Excess Anion Gap Estim Creat Clear Calc Estimated GFR Random Glucose Lactic Acid 2.4 H* Calcium Total Bilirubin AST ALT Alkaline Phosphatase Troponin I High Sens B-Natriuretic Peptide Total Protein Albumin Ethyl Alcohol Influenza Type A (PCR) Influenza Type B (PCR) RSV RNA Qual (PCR) SARS-CoV-2 RNA (RT-PCR) 08/20/22 08/20/22 08/20/22 21:21 21:21 21:21 MCV MCH MCHC RDW Plt Count MPV Immature Gran % (Auto) Neut % (Auto) Lymph % (Auto) O'Brien % (Auto) Eos % (Auto) Baso % (Auto) Lymph # (Auto) O'Brien # (Auto) Eos # (Auto) Baso # (Auto) Abs Immat Gran (auto) Absolute Neuts (auto) Absolute Nucleated RBC Nucleated RBC % (auto) PT INR VBG pH VBG pCO2 VBG pO2 VBG HCO3 VBG O2 Saturation VBG Base Excess Anion Gap Estim Creat Clear Calc Estimated GFR Random Glucose Lactic Acid Calcium Total Bilirubin AST ALT Alkaline Phosphatase Troponin I High Sens 45.5 H B-Natriuretic Peptide 1757 H Total Protein Albumin Ethyl Alcohol Influenza Type A (PCR) NEGATIVE Influenza Type B (PCR) NEGATIVE RSV RNA Qual (PCR) NEGATIVE SARS-CoV-2 RNA (RT-PCR) NEGATIVE 08/20/22 08/20/22 08/20/22 21:26 21:49 21:50 MCV MCH MCHC RDW Plt Count MPV Immature Gran % (Auto) Neut % (Auto) Lymph % (Auto) O'Brien % (Auto) Eos % (Auto) Baso % (Auto) Lymph # (Auto) O'Brien # (Auto) Eos # (Auto) Baso # (Auto) Abs Immat Gran (auto) Absolute Neuts (auto) Absolute Nucleated RBC Nucleated RBC % (auto) PT INR VBG pH 7.37 VBG pCO2 37 VBG pO2 45 VBG HCO3 21 L VBG O2 Saturation 67.0 VBG Base Excess -2.7 Anion Gap 19 Estim Creat Clear Calc 33.2 Estimated GFR 42 Random Glucose 152 H D Lactic Acid Calcium 8.2 L Total Bilirubin 0.4 AST 95 H ALT 123 H Alkaline Phosphatase 83 D Troponin I High Sens B-Natriuretic Peptide Total Protein 6.8 Albumin 3.6 Ethyl Alcohol < 10 Influenza Type A (PCR) Influenza Type B (PCR) RSV RNA Qual (PCR) SARS-CoV-2 RNA (RT-PCR) Imaging Radiologist's Impressions: Impressions Chest X-Ray 08/20/22 22:15 IMPRESSION: 1. Patchy right midlung airspace disease. 2. Previous cross-sectional imaging with cavitary right lower lobe lesion. This is likely obscured by the heart border. Recommend follow-up CT. 3. 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 #. Paroxysmal Afib with RVR -Patient received amiodarone bolus and is on drip as per Cardiology recommendations. Defer metoprolol and diltiazem due to low normal blood pressure at the time of admission. Cardiology consulted from the ER, appreciate recommendations. Continue eliquis #. Squamous cell lung cancer of right lung -s/p radiation. As per daughter, patient is currently DNR/DNI but family is considering of switching him to comfort measures only. Continue family discussions and may benefit from hospice patient financial representative consult. #. Acute decompensated CHF, unspecified EF -Noted elevated BNP and lower extremity edema. ?right sided CHF. Obtain echo, strict Is and Os. Received IV lasix in the ER,transition to po lasix once euvolemia is achieved #. Elevated creatinine -MATHEW (cardio-renal I) vs progression of CKD. Monitor urine output and creatinine with lasix. Avoid nephrotoxins #. Hyperkalemia -administered lokelma. Also received lasix. Monitor #. Insulin-dependent diabetes mellitus - Continue basal regimen. Initiating Accu-Cheks with sliding scale insulin. Hold metformin #. Elevated transaminases -due to hepatic congestion #. Elevated troponin -likely type 2. Will trend troponins -#. Lactic acidosis -type A. Trending down #. COPD -no exacerbation on admission #. Essential hypertension -hold home po medications #. Alzheimer's dementia -no behavioral issues at admission #. Chronic macrocytic anemia -Obtain folate and B12 DVT prophylaxis: Eliquis twice daily DNR/DNI Diabetic diet Admit as inpatient and will require two night minimum hospital stay for hemodynamic monitoring. Current need for IV diuretics and IV amiodarone Quality Stroke Does the patient have a stroke diagnosis?: No VTE Prior VTE?: No VTE Risk Level:: Medical - moderate - high VTE Device Contraindication: Treatment Not Indicated VTE Drug Contraindication: N/A - Med Ordered
[2022-08-21 01:15] LABS: Appearance Urine Clear; Color Urine Yellow; Glucose Urine UA Negative (Negative); Leukocyte Esterase Urine Negative (Negative); Nitrite Urine Negative (Negative); Urine Blood Negative (Negative); Urine Ketones Negative (Negative); Urine Protein Negative (Neg-Trace)
[2022-08-21] MEDS: Albuterol Sulfate (0.083%) 2.5 MG/3 ML VIAL.NEB INHALE ×4 (01:23→19:12)
[2022-08-21] MEDS: Amiodarone HCL 900 MG in 0.9 % Sodium Chloride 500 ML 34.53 MG IVCONT (01:38)
[2022-08-21 01:39] LABS: ~Lactic Acid-LAB USE ONLY 2.1 mmol/L (0.5-2.0)
[2022-08-21 03:12] LABS: Reflex Lactate? 2 Y
[2022-08-21] MEDS: Piperacillin Sodium/Tazobactam 3.375 GM in 0.9 % Sodium Chloride 50 ML IV (03:28)
[2022-08-21] MEDS: Apixaban 5 MG TABLET PO ×3 (03:28→21:45)
[2022-08-21] MEDS: Sodium Zirconium Cyclosilicate 10 GM POWD.PACK PO (03:31)
[2022-08-21 03:47] LABS: Basophils Percent Auto 0.2 % (0-2); Eosinophils Absolute Auto 0.1 X10*3/uL (0.0-0.4); Eosinophils Percent Auto 1.5 % (0-4); Hematocrit 31.3 % (42.0-52.0); Hemoglobin 9.7 g/dl (14.0-18.0); Imm Gran Abs Auto 0.02 X10*3/uL (0.00-0.03); Imm Gran Pct Auto 0.4 % (0.0-0.4); Lymphocytes Absolute Auto 0.6 X10*3/uL (1.2-4.9); Lymphocytes Percent Auto 12.2 % (20-40); MANUAL DIFF FLAG NO; Mean Corpuscular Hemoglobin 31.2 pg (27.0-33.0); Mean Corpuscular Volume 100.6 fL (80.0-98.0); Mean Platelet Volume 9.8 fL (9.4-12.4); Monocytes Absolute Auto 0.5 X10*3/uL (0.1-1.2); Monocytes Percent Auto 11.1 % (2-11); NRBC Pct Auto 0.4 /100WBC (0.0-0.2); Neutrophils Absolute Auto 3.4 x10*3/uL (2.0-8.3); Neutrophils Percent Auto 74.6 % (45-73); Platelet Count 160 X10*3/uL (160-400); Red Blood Count 3.11 X10*6/uL (4.60-5.80); Red Cell Distribution Width 14.6 % (11.0-16.0); White Blood Count 4.5 X10*3/uL (4.8-10.8)
[2022-08-21 04:00] LABS: Anion Gap 18 (12-20); Blood Urea Nitrogen 37 mg/dL (9-16); Calcium 8.2 mg/dL (8.4-10.2); Carbon Dioxide 24 mmol/L (22-29); Chloride 101 mmol/L (96-108); Creatinine Clr Calc Pharmacy 35.4; Estimated Glomerular Filt Rate 45; Glucose Random 124 mg/dL (60-115); Potassium 5.2 mmol/L (3.3-5.1); Sodium 138 mmol/L (135-145)
[2022-08-21 04:08] LABS: ~Lactic Acid-LAB USE ONLY 2.5 mmol/L (0.5-2.0)
--- NOTE | 2022-08-21 04:26 | PC.NURSE ---
Pt had a med BM. Pt cleaned. Bed pads changed. Pt repositioned and booted up in bed. Pt given warm blankets and call leo placed in reach
--- NOTE | 2022-08-21 05:35 | PC.NURSE ---
Pt has a small bm in bed. Pt given sandra care. Bed pads changed and pt repositioned in bed. Pt given warm blankets and call leo placed in reach
[2022-08-21 06:28] LABS: Troponin-I High Sensitivity 35.3 ng/L (<3.5-35.0)
--- NOTE | 2022-08-21 07:00 | CA_ITS ---
Transthoracic Echocardiogram Patient (Last, First, Middle): Kane Block, Gender: Male Date of : 1945 Age: 76 Procedure Date: 08/21/2022 Procedure Type: Transthoracic Echocardiogram Location: ER Height: 165.1 cm Weight: 70.76 kg BSA: 1.78 m2 Heart Rate: bpm BP: 103 / 65 mmHg Fast Food Assistant Restaurant Manager: Referring MD: Abel Wang MD Symptoms: CHF Study Quality: Adequate ECG Rhythm: Atrial Fibrillation Conclusions: - Normal left ventricular cavity size. There is mildly increased left ventricular wall thickness. The left ventricular systolic function is severely decreased. The visually estimated ejection fraction is between 20-25%. - The inferior wall, anterolateral wall, inferolateral wall, and basal inferoseptal segment are akinetic. - Normal right ventricular cavity size. There is severely decreased right ventricular systolic function. - Normal tricuspid valve structure. There is mild to moderate tricuspid valve regurgitation. Significantly elevated right atrial pressure. Severe pulmonary hypertension is present. Findings Left Ventricle Normal left ventricular cavity size. There is mildly increased left ventricular wall thickness. The left ventricular systolic function is severely decreased. The visually estimated ejection fraction is between 20 25%. There is evidence of regional wall motion abnormalities. Diastolic function is indeterminate on the basis of available data. Wall Motion Rest Echo Findings The inferior wall, anterolateral wall, inferolateral wall, and basal inferoseptal segment are akinetic. Right Ventricle Normal right ventricular cavity size. There is severely decreased right ventricular systolic function. Atria The left atrium is severely dilated. There is no evidence of interatrial shunt by agitated saline. Aortic Valve There is a normal trileaflet aortic valve. There is mild calcification of the aortic valve. There is no aortic valve stenosis. There is mild to moderate aortic valve regurgitation. Mitral Valve There is moderate mitral valve regurgitation. There is no mitral valve stenosis. Apical tethering of the mitral valve leaflets. Pulmonic Valve The pulmonic valve was not well visualized. Tricuspid Valve Normal tricuspid valve structure. There is mild to moderate tricuspid valve regurgitation. Significantly elevated right atrial pressure. Severe pulmonary hypertension is present. Great Vessels All visible segments of the aorta are normal in size. The pulmonary artery was not well visualized. Venous The inferior vena cava is dilated and does not collapse with inspiration. Pericardium/Pleural There is no evidence of pericardial effusion. Measurements 2D Linear Measurements IVSd: 1.28 0.6-0.9/0.6-1.0 cm LVIDd: 5.01 3.9-5.3/4.2-5.9 cm LVIDd Index: 2.81 2.4-3.2/2.2-3.1 cm/m2 LVIDs: 4.30 2.0-3.6 cm LVPWd: 1.28 0.7-1.1 cm Ao Root: 3.30 2.1-3.5 cm LA Diam: 5.00 2.7-3.8/3.0-4.0 cm LAIDs Index: 2.81 1.5-2.3 cm/m2 LV Mass: 320.37 67-162/88-224 g LV Mass Index: 179.98 43-95/49-115 g/m2 LVOT Diam: 2.00 3.0+(-)1.3 cm 2D Systolic Function EF 4C: 23.50 >55% EF 2C: 20.60 >55% EF BiP: 23.70 >55% Aortic Valve AoV Pk Raimundo: 1.40 AoV Mn Raimundo: 0.85 AoV VTI: 0.21 AoV Pk Grad: 8.00 Aov Mn Grad: 4.00 REFUGIO Cont.VTI: 1.70 LVOT LVOT Pk Raimundo: 0.84 LVOT Mn Raimundo: 0.50 LVOT VTI: 0.12 LVOT Pk Grad: 3.00 LVOT Mn Grad: 1.00 LVOT Diam: 2.00 LVOT Area: 3.14 Right Ventricle TAPSE (mm): 12.00 TVS' Raimundo: 7.00 Tricuspid Valve TR Pk Raimundo: 3.28 TR Pk Grad: 43.00 RA Press: 15.00 RVSP: 58.00 Great Vessels Aorta Ao Root-2D: 3.30 2.0-3.7 cm Pulmonary Valve PV Pk Raimundo: 0.76 Peak PV Grad: 2.00 Updated in Other Vendor System with Status of Final Keo Sanon MD electronically signed on 08/21/2022 11:48:39 AM with status of Final
[2022-08-21 07:22] LABS: Glucose, Whole Blood 96 mg/dL (60-115)
[2022-08-21 08:41] LABS: Folate 5.3 ng/mL (> or = 4.0); Vitamin B12 917 pg/mL (200-900)
[2022-08-21] MEDS: Digoxin 0.125 MG TABLET PO (09:00)
[2022-08-21] MEDS: Furosemide 40 MG/4 ML VIAL IVPUSH (09:01)
[2022-08-21] MEDS: 0.9 % Sodium Chloride Flush 3 ML SYRINGE IVFLUSH ×2 (09:01→21:20)
--- NOTE | 2022-08-21 10:27 | MHC.CM.PN ---
spoke with pts kirstin and hcp inna who works for [employer] pt will go home pallatibve and then transition to hospice pt lives with a s/o covid vax dc plan home w [employer] and quarter lining smoother
--- NOTE | 2022-08-21 11:02 | HO.PM.IMPN ---
Subjective Subjective Date of Service: 08/21/22 Interval History: cc: tachy interval history:no compalints Cardiovascular Cardiovascular: Reports no additional cardiovascular complaints Respiratory Respiratory: Reports no additional respiratory complaints Physical Exam Vital Signs: Vital Signs: Last Vital Signs Temp 97.6 F 08/21/22 05:33 Pulse 109 H 08/21/22 09:27 Resp 20 08/21/22 09:05 BP 112/69 08/21/22 09:05 Pulse Ox 100 08/21/22 09:05 O2 Del Method 08/21/22 09:05 O2 Flow Rate 2 08/21/22 09:05 BMI result Body Mass Index 25.9 General: AO X 1, no acute distress Resp: CTA bilateral, no accessory muscles used CVS: S1,S2,Rapid irregular GI: soft, non tender, non distended Neuro: motor grossly intact, alert Psych: appropriate affect, imapired insight Objective Data Active Medications Acetaminophen (Acetaminophen 325 Mg Tablet) 650 mg PO Q6H PRN PRN Reason: Pain, Mild (Pain Scale 1-3) Albuterol Sulfate (Albuterol Sulfate (0.083%) 2.5 Mg/3 Ml Vial.Neb) 2.5 mg INHALE TID [facility] Last Admin: 08/21/22 09:25 Dose: 2.5 mg Documented By: TALA Albuterol/Ipratropium (Albuterol/Iprat 2.5/0.5mg 3 Ml Ampul.Neb) 3 ml INHALE RQ4H PRN PRN Reason: wheezing Apixaban (Apixaban 5 Mg Tablet) 5 mg PO BID [facility] Last Admin: 08/21/22 09:01 Dose: 5 mg Documented By: RAN Dextrose (Dextrose 50 % 25 Gm/50 Ml Syringe) 25 gm IVPUSH Q15M PRN; Protocol PRN Reason: per Hypoglycemia Standing Ord. Digoxin (Digoxin 0.125 Mg Tablet) 0.125 mg PO DAILY [facility] Last Admin: 08/21/22 09:00 Dose: 0.125 mg Documented By: RAN Furosemide (Furosemide 40 Mg/4 Ml Vial) 40 mg IVPUSH DAILY [facility]; Protocol Last Admin: 08/21/22 09:01 Dose: 40 mg Documented By: RAN Glucose (Glucose Gel 15 Gm Gel..Gram.) 15 gm PO Q15M PRN; Protocol PRN Reason: per Hypoglycemia Standing Ord. Amiodarone HCl 900 mg/ Sodium (Chloride) 518 mls @ 34.533 mls/hr IVCONT .Q15H1M [facility]; Protocol Last Admin: 08/21/22 01:38 Dose: 1 mg/min, 34.53 mls/hr Documented By: ARAVIND Insulin Glargine (Insulin Glargine,Hum.Rec.Anlog 100 Unit/Ml 10 Ml Vial) 6 unit SUBCUT BEDTIME [facility] Insulin Human Lispro (Insulin Lispro 100 Unit/Ml 3 Ml Vial) 0 unit SUBCUT QIDACHS [facility]; Protocol Stop: 11/28/22 07:29 Last Admin: 08/21/22 09:01 Dose: Not Given Documented By: RAN Non-Admin Reason: See Note Melatonin (Melatonin 3 Mg Tablet) 6 mg PO BEDTIME PRN PRN Reason: Insomnia Ondansetron HCl (Ondansetron Hcl 4 Mg/2 Ml Vial) 4 mg IVPUSH Q8H PRN PRN Reason: Nausea and Vomiting Pharmacy Consult (Consult Rx Perform Med Rec) 1 each MISCELLANE ONCE PRN PRN Reason: Consult order Sodium Chloride (0.9 % Sodium Chloride Flush 3 Ml Syringe) 3 ml IVFLUSH QSHIFT [facility] Last Admin: 08/21/22 09:01 Dose: 3 ml Documented By: RAN Labs CBC & Chem 7: 08/21/22 03:41 08/21/22 03:41 Labs: Laboratory Results - last 24 hr 08/20/22 08/20/22 08/20/22 21:20 21:21 21:21 MCV 100.0 H MCH 31.8 MCHC 31.8 RDW 14.7 Plt Count 178 MPV 9.7 Immature Gran % (Auto) 0.4 Neut % (Auto) 74.1 H Lymph % (Auto) 12.3 L [place] % (Auto) 11.1 H Eos % (Auto) 2.1 Baso % (Auto) 0.0 Lymph # (Auto) 0.7 L [place] # (Auto) 0.6 Eos # (Auto) 0.1 Baso # (Auto) 0.0 Abs Immat Gran (auto) 0.02 Absolute Neuts (auto) 4.1 Absolute Nucleated RBC 0.030 H Nucleated RBC % (auto) 0.5 H PT 22.0 H INR 1.9 H VBG pH VBG pCO2 VBG pO2 VBG HCO3 VBG O2 Saturation VBG Base Excess Anion Gap Estim Creat Clear Calc Estimated GFR POC Glucose Random Glucose Lactic Acid 2.4 H* Lactic Acid F/U @ 2Hr Lactic Acid F/U @ 4Hr Calcium Total Bilirubin AST ALT Alkaline Phosphatase Troponin I High Sens B-Natriuretic Peptide Total Protein Albumin Vitamin B12 Folate Urine Color Urine Appearance Urine pH Ur Specific [place] Urine Protein Urine Glucose (UA) Urine Ketones Urine Blood Urine Nitrite Ur Leukocyte Esterase Ethyl Alcohol Influenza Type A (PCR) Influenza Type B (PCR) RSV RNA Qual (PCR) SARS-CoV-2 RNA (RT-PCR) 08/20/22 08/20/22 08/20/22 21:21 21:21 21:21 MCV MCH MCHC RDW Plt Count MPV Immature Gran % (Auto) Neut % (Auto) Lymph % (Auto) [place] % (Auto) Eos % (Auto) Baso % (Auto) Lymph # (Auto) [place] # (Auto) Eos # (Auto) Baso # (Auto) Abs Immat Gran (auto) Absolute Neuts (auto) Absolute Nucleated RBC Nucleated RBC % (auto) PT INR VBG pH VBG pCO2 VBG pO2 VBG HCO3 VBG O2 Saturation VBG Base Excess Anion Gap Estim Creat Clear Calc Estimated GFR POC Glucose Random Glucose Lactic Acid Lactic Acid F/U @ 2Hr Lactic Acid F/U @ 4Hr Calcium Total Bilirubin AST ALT Alkaline Phosphatase Troponin I High Sens 45.5 H B-Natriuretic Peptide 1757 H Total Protein Albumin Vitamin B12 Folate Urine Color Urine Appearance Urine pH Ur Specific [place] Urine Protein Urine Glucose (UA) Urine Ketones Urine Blood Urine Nitrite Ur Leukocyte Esterase Ethyl Alcohol Influenza Type A (PCR) NEGATIVE Influenza Type B (PCR) NEGATIVE RSV RNA Qual (PCR) NEGATIVE SARS-CoV-2 RNA (RT-PCR) NEGATIVE 08/20/22 08/20/22 08/20/22 21:26 21:49 21:50 MCV MCH MCHC RDW Plt Count MPV Immature Gran % (Auto) Neut % (Auto) Lymph % (Auto) [place] % (Auto) Eos % (Auto) Baso % (Auto) Lymph # (Auto) [place] # (Auto) Eos # (Auto) Baso # (Auto) Abs Immat Gran (auto) Absolute Neuts (auto) Absolute Nucleated RBC Nucleated RBC % (auto) PT INR VBG pH 7.37 VBG pCO2 37 VBG pO2 45 VBG HCO3 21 L VBG O2 Saturation 67.0 VBG Base Excess -2.7 Anion Gap 19 Estim Creat Clear Calc 33.2 Estimated GFR 42 POC Glucose Random Glucose 152 H D Lactic Acid Lactic Acid F/U @ 2Hr Lactic Acid F/U @ 4Hr Calcium 8.2 L Total Bilirubin 0.4 AST 95 H ALT 123 H Alkaline Phosphatase 83 D Troponin I High Sens B-Natriuretic Peptide Total Protein 6.8 Albumin 3.6 Vitamin B12 Folate Urine Color Urine Appearance Urine pH Ur Specific [place] Urine Protein Urine Glucose (UA) Urine Ketones Urine Blood Urine Nitrite Ur Leukocyte Esterase Ethyl Alcohol < 10 Influenza Type A (PCR) Influenza Type B (PCR) RSV RNA Qual (PCR) SARS-CoV-2 RNA (RT-PCR) 08/21/22 08/21/22 08/21/22 00:40 01:08 03:41 MCV 100.6 H MCH 31.2 MCHC 31.0 RDW 14.6 Plt Count 160 MPV 9.8 Immature Gran % (Auto) 0.4 Neut % (Auto) 74.6 H Lymph % (Auto) 12.2 L [place] % (Auto) 11.1 H Eos % (Auto) 1.5 Baso % (Auto) 0.2 Lymph # (Auto) 0.6 L [place] # (Auto) 0.5 Eos # (Auto) 0.1 Baso # (Auto) 0.0 Abs Immat Gran (auto) 0.02 Absolute Neuts (auto) 3.4 Absolute Nucleated RBC 0.020 H Nucleated RBC % (auto) 0.4 H PT INR VBG pH VBG pCO2 VBG pO2 VBG HCO3 VBG O2 Saturation VBG Base Excess Anion Gap Estim Creat Clear Calc Estimated GFR POC Glucose Random Glucose Lactic Acid Lactic Acid F/U @ 2Hr 2.1 H* Lactic Acid F/U @ 4Hr Calcium Total Bilirubin AST ALT Alkaline Phosphatase Troponin I High Sens B-Natriuretic Peptide Total Protein Albumin Vitamin B12 Folate Urine Color Yellow Urine Appearance Clear Urine pH 5.0 Ur Specific [place] 1.010 Urine Protein Negative Urine Glucose (UA) Negative Urine Ketones Negative Urine Blood Negative Urine Nitrite Negative Ur Leukocyte Esterase Negative Ethyl Alcohol Influenza Type A (PCR) Influenza Type B (PCR) RSV RNA Qual (PCR) SARS-CoV-2 RNA (RT-PCR) 08/21/22 08/21/22 08/21/22 03:41 03:41 03:41 MCV MCH MCHC RDW Plt Count MPV Immature Gran % (Auto) Neut % (Auto) Lymph % (Auto) [place] % (Auto) Eos % (Auto) Baso % (Auto) Lymph # (Auto) [place] # (Auto) Eos # (Auto) Baso # (Auto) Abs Immat Gran (auto) Absolute Neuts (auto) Absolute Nucleated RBC Nucleated RBC % (auto) PT INR VBG pH VBG pCO2 VBG pO2 VBG HCO3 VBG O2 Saturation VBG Base Excess Anion Gap 18 Estim Creat Clear Calc 35.4 Estimated GFR 45 POC Glucose Random Glucose 124 H Lactic Acid Lactic Acid F/U @ 2Hr Lactic Acid F/U @ 4Hr 2.5 H* Calcium 8.2 L Total Bilirubin AST ALT Alkaline Phosphatase Troponin I High Sens B-Natriuretic Peptide Total Protein Albumin Vitamin B12 917 H Folate 5.3 Urine Color Urine Appearance Urine pH Ur Specific [place] Urine Protein Urine Glucose (UA) Urine Ketones Urine Blood Urine Nitrite Ur Leukocyte Esterase Ethyl Alcohol Influenza Type A (PCR) Influenza Type B (PCR) RSV RNA Qual (PCR) SARS-CoV-2 RNA (RT-PCR) 08/21/22 08/21/22 05:58 07:19 MCV MCH MCHC RDW Plt Count MPV Immature Gran % (Auto) Neut % (Auto) Lymph % (Auto) [place] % (Auto) Eos % (Auto) Baso % (Auto) Lymph # (Auto) [place] # (Auto) Eos # (Auto) Baso # (Auto) Abs Immat Gran (auto) Absolute Neuts (auto) Absolute Nucleated RBC Nucleated RBC % (auto) PT INR VBG pH VBG pCO2 VBG pO2 VBG HCO3 VBG O2 Saturation VBG Base Excess Anion Gap Estim Creat Clear Calc Estimated GFR POC Glucose 96 Random Glucose Lactic Acid Lactic Acid F/U @ 2Hr Lactic Acid F/U @ 4Hr Calcium Total Bilirubin AST ALT Alkaline Phosphatase Troponin I High Sens 35.3 H B-Natriuretic Peptide Total Protein Albumin Vitamin B12 Folate Urine Color Urine Appearance Urine pH Ur Specific [place] Urine Protein Urine Glucose (UA) Urine Ketones Urine Blood Urine Nitrite Ur Leukocyte Esterase Ethyl Alcohol Influenza Type A (PCR) Influenza Type B (PCR) RSV RNA Qual (PCR) SARS-CoV-2 RNA (RT-PCR) Assessment and Plan (1) Afib: Status: Acute Plan 76-year-old male with pertinent history of 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 Paroxysmal Afib with RVR continue iv amiodarone, monitor Squamous cell lung cancer of right lung -s/p radiation. As per daughter, patient is currently DNR/DNI but family is considering of switching him to comfort measures only.? Continue family discussions and may benefit from hospice product sales representative consult. Acute on chronic systolic chf continue iv lasix Elevated creatinine -MATHEW (cardio-renal I) vs progression of CKD. Monitor urine output and creatinine with lasix.? Avoid nephrotoxins Hyperkalemia -administered lokelma. Also received lasix. Monitor Insulin-dependent diabetes mellitus - Continue basal regimen.? Initiating Accu-Cheks with sliding scale insulin.? Hold metformin COPD -no exacerbation on admission Essential hypertension -hold home po medications due to relative hypotension Alzheimer's dementia -no behavioral issues at admission Chronic macrocytic anemia folate, b12 wnl DVT prophylaxis: Yonis DNR/DNI reason for continued hospitalization:iv amio for rapid afib ongoing Quality Stroke Does the patient have a stroke diagnosis?: No VTE Prior VTE?: No VTE Risk Level:: Medical - moderate - high VTE Device Contraindication: Treatment Not Indicated VTE Drug Contraindication: N/A - Med Ordered
--- NOTE | 2022-08-21 11:38 | PM.CNCAR ---
History of Present Illness History of Present Illness Date of Service: 08/21/22 Requesting physician: Kavon Ortiz Chief complaint: Afib with RVR, cardiomyopathy Narrative: 76 male with lung cancer, COPD, cardiomyopathy EF 20-25% and CVA presenting with dyspnea and Afib with RVR. Started on amiodarone in the ER. HR are better controlled. He is denying any symptoms. No CP or SOB. appears mildly overloaded. [facility] Past Medical History Medical History (Updated 08/21/22 @ 01:05 by Abel Wang MD) Asthma CAD (coronary artery disease) Cerebral infarction COPD (chronic obstructive pulmonary disease) Diabetes mellitus type 2, insulin dependent Encephalopathy GERD (gastroesophageal reflux disease) Gynecomastia Hyperlipidemia Hypertension Ischemic cardiomyopathy Right lower lobe lung mass Scrotal abscess Smoker TIA (transient ischemic attack) Tubular adenoma of colon Venous stasis dermatitis of both lower extremities Vitamin B 12 deficiency Family History Family History Son HTN (hypertension) Surgical History Surgical History History of colonoscopy History of exploratory laparotomy History of heart artery stent History of hernia repair History of hydrocelectomy History of left inguinal hernia repair History of skin graft Social History Social History Household Members: Spouse Housing: Apartment Are you a primary primary care nurse practitioner to a significant other at home: No Do you presently have visiting nurse or other home services: Yes Alcohol intake: former Patient Tobacco Use Status: Current everyday Tobacco user Tobacco use type: Cigarette Cigarette Packs Per Day: 0.5 Cigarettes Per Day: 4 Years Smoked: unknown e-Cigarette/Vaping Use: Currently Using Substance Use Type: Marijuana Advance Directives Date on File: 12/05/20 service: No Current occupational status: retired Meds Allergies Allergy/AdvReac Type Severity Reaction Status Date / Time No Known Allergies Allergy Mild Verified 07/16/22 12:04 Active Medications: Current Medications Acetaminophen (Acetaminophen 325 Mg Tablet) 650 mg PO Q6H PRN PRN Reason: Pain, Mild (Pain Scale 1-3) Albuterol Sulfate (Albuterol Sulfate (0.083%) 2.5 Mg/3 Ml Vial.Neb) 2.5 mg INHALE TID [facility] Last Admin: 08/21/22 09:25 Dose: 2.5 mg Albuterol/Ipratropium (Albuterol/Iprat 2.5/0.5mg 3 Ml Ampul.Neb) 3 ml INHALE RQ4H PRN PRN Reason: wheezing Apixaban (Apixaban 5 Mg Tablet) 5 mg PO BID [facility] Last Admin: 08/21/22 09:01 Dose: 5 mg Dextrose (Dextrose 50 % 25 Gm/50 Ml Syringe) 25 gm IVPUSH Q15M PRN; Protocol PRN Reason: per Hypoglycemia Standing Ord. Digoxin (Digoxin 0.125 Mg Tablet) 0.125 mg PO DAILY [facility] Last Admin: 08/21/22 09:00 Dose: 0.125 mg Furosemide (Furosemide 40 Mg/4 Ml Vial) 40 mg IVPUSH DAILY [facility]; Protocol Last Admin: 08/21/22 09:01 Dose: 40 mg Glucose (Glucose Gel 15 Gm Gel..Gram.) 15 gm PO Q15M PRN; Protocol PRN Reason: per Hypoglycemia Standing Ord. Amiodarone HCl 900 mg/ Sodium (Chloride) 518 mls @ 34.533 mls/hr IVCONT .Q15H1M [facility]; Protocol Last Admin: 08/21/22 01:38 Dose: 1 mg/min, 34.53 mls/hr Insulin Glargine (Insulin Glargine,Hum.Rec.Anlog 100 Unit/Ml 10 Ml Vial) 6 unit SUBCUT BEDTIME [facility] Insulin Human Lispro (Insulin Lispro 100 Unit/Ml 3 Ml Vial) 0 unit SUBCUT QIDACHS [facility]; Protocol Stop: 11/28/22 07:29 Last Admin: 08/21/22 09:01 Dose: Not Given Melatonin (Melatonin 3 Mg Tablet) 6 mg PO BEDTIME PRN PRN Reason: Insomnia Ondansetron HCl (Ondansetron Hcl 4 Mg/2 Ml Vial) 4 mg IVPUSH Q8H PRN PRN Reason: Nausea and Vomiting Pharmacy Consult (Consult Rx Perform Med Rec) 1 each MISCELLANE ONCE PRN PRN Reason: Consult order Sodium Chloride (0.9 % Sodium Chloride Flush 3 Ml Syringe) 3 ml IVFLUSH QSHIFT [facility] Last Admin: 08/21/22 09:01 Dose: 3 ml Home Medications Medication Instructions Recorded Confirmed Last Taken Type atorvastatin 80 mg tablet 1 tab PO BEDTIME 12/01/20 08/20/22 08/19/22 History cyanocobalamin (vitamin B-12) 1 tab PO DAILY 12/01/20 08/20/22 08/19/22 History 1,000 mcg tablet,extended release apixaban 5 mg tablet (Eliquis) 5 mg PO BID 06/12/22 08/20/22 08/19/22 History digoxin 125 mcg (0.125 mg) tablet 125 mcg PO DAILY 06/12/22 08/20/22 08/19/22 History albuterol sulfate 90 mcg/actuation 2 puff inhalation Q4-6H PRN 07/16/22 08/20/22 08/19/22 History aerosol inhaler Shortness Of Breath Or Wheezing albuterol sulfate 2.5 mg/3 mL 1 amp inhalation TID 08/20/22 08/20/22 08/19/22 History (0.083 %) solution for nebulization furosemide 40 mg tablet 1 tab PO DAILY 08/20/22 08/20/22 08/19/22 History insulin glargine 100 unit/mL (3 6 unit subcut BEDTIME 08/20/22 08/20/22 08/19/22 History mL) subcutaneous pen (Lantus Solostar U-100 Insulin) insulin lispro 100 unit/mL See Rx Instructions .Route .COMPLEX 08/20/22 08/20/22 08/19/22 History subcutaneous pen (Humalog KwikPen (U-100) Insulin) metformin 500 mg tablet,extended 2 tab PO BID 08/20/22 08/20/22 08/19/22 History release 24 hr metoprolol succinate 50 mg 1 tab PO DAILY 08/20/22 08/20/22 08/19/22 History tablet,extended release 24 hr multivitamin 1 tab PO DAILY 08/20/22 08/20/22 08/19/22 History Physical Exam Vital Signs: Vital Signs: Last Vital Signs Temp 97.6 F 08/21/22 05:33 Pulse 109 H 08/21/22 09:27 Resp 20 08/21/22 09:05 BP 112/69 08/21/22 09:05 Pulse Ox 100 08/21/22 09:05 O2 Del Method 08/21/22 09:05 O2 Flow Rate 2 08/21/22 09:05 BMI result Body Mass Index 25.9 GENERAL APPEARANCE: in no acute distress. NECK: no carotid bruit, + jugular venous distention. SKIN: no suspicious lesions, warm and dry. HEART: no murmurs, irregular rate and rhythm. LUNGS: crackles both lungs ABDOMEN: soft, nontender. EXTREMITIES: no significant edema. PERIPHERAL PULSES: equal. NEUROLOGIC: No gross deficits, AAO X 3 Objective Labs and Meds Result diagrams: 08/21/22 03:41 08/21/22 03:41 Lab results: Laboratory Results - last 24 hr 08/20/22 08/20/22 08/20/22 21:20 21:21 21:21 WBC 5.6 RBC 3.33 L Hgb 10.6 L Hct 33.3 L MCV 100.0 H MCH 31.8 MCHC 31.8 RDW 14.7 Plt Count 178 MPV 9.7 Immature Gran % (Auto) 0.4 Neut % (Auto) 74.1 H Lymph % (Auto) 12.3 L Grayson % (Auto) 11.1 H Eos % (Auto) 2.1 Baso % (Auto) 0.0 Lymph # (Auto) 0.7 L Grayson # (Auto) 0.6 Eos # (Auto) 0.1 Baso # (Auto) 0.0 Abs Immat Gran (auto) 0.02 Absolute Neuts (auto) 4.1 Absolute Nucleated RBC 0.030 H Nucleated RBC % (auto) 0.5 H PT 22.0 H INR 1.9 H VBG pH VBG pCO2 VBG pO2 VBG HCO3 VBG O2 Saturation VBG Base Excess Sodium Potassium Chloride Carbon Dioxide Anion Gap BUN Creatinine Estim Creat Clear Calc Estimated GFR POC Glucose Random Glucose Lactic Acid 2.4 H* Lactic Acid F/U @ 2Hr Lactic Acid F/U @ 4Hr Calcium Total Bilirubin AST ALT Alkaline Phosphatase Troponin I High Sens B-Natriuretic Peptide Total Protein Albumin Vitamin B12 Folate Urine Color Urine Appearance Urine pH Ur Specific Brumley Urine Protein Urine Glucose (UA) Urine Ketones Urine Blood Urine Nitrite Ur Leukocyte Esterase Ethyl Alcohol Influenza Type A (PCR) Influenza Type B (PCR) RSV RNA Qual (PCR) SARS-CoV-2 RNA (RT-PCR) 08/20/22 08/20/22 08/20/22 21:21 21:21 21:21 WBC RBC Hgb Hct MCV MCH MCHC RDW Plt Count MPV Immature Gran % (Auto) Neut % (Auto) Lymph % (Auto) Grayson % (Auto) Eos % (Auto) Baso % (Auto) Lymph # (Auto) Grayson # (Auto) Eos # (Auto) Baso # (Auto) Abs Immat Gran (auto) Absolute Neuts (auto) Absolute Nucleated RBC Nucleated RBC % (auto) PT INR VBG pH VBG pCO2 VBG pO2 VBG HCO3 VBG O2 Saturation VBG Base Excess Sodium Potassium Chloride Carbon Dioxide Anion Gap BUN Creatinine Estim Creat Clear Calc Estimated GFR POC Glucose Random Glucose Lactic Acid Lactic Acid F/U @ 2Hr Lactic Acid F/U @ 4Hr Calcium Total Bilirubin AST ALT Alkaline Phosphatase Troponin I High Sens 45.5 H B-Natriuretic Peptide 1757 H Total Protein Albumin Vitamin B12 Folate Urine Color Urine Appearance Urine pH Ur Specific Brumley Urine Protein Urine Glucose (UA) Urine Ketones Urine Blood Urine Nitrite Ur Leukocyte Esterase Ethyl Alcohol Influenza Type A (PCR) NEGATIVE Influenza Type B (PCR) NEGATIVE RSV RNA Qual (PCR) NEGATIVE SARS-CoV-2 RNA (RT-PCR) NEGATIVE 08/20/22 08/20/22 08/20/22 21:26 21:49 21:50 WBC RBC Hgb Hct MCV MCH MCHC RDW Plt Count MPV Immature Gran % (Auto) Neut % (Auto) Lymph % (Auto) Grayson % (Auto) Eos % (Auto) Baso % (Auto) Lymph # (Auto) Grayson # (Auto) Eos # (Auto) Baso # (Auto) Abs Immat Gran (auto) Absolute Neuts (auto) Absolute Nucleated RBC Nucleated RBC % (auto) PT INR VBG pH 7.37 VBG pCO2 37 VBG pO2 45 VBG HCO3 21 L VBG O2 Saturation 67.0 VBG Base Excess -2.7 Sodium 134 L Potassium 5.5 H D Chloride 100 Carbon Dioxide 21 L Anion Gap 19 BUN 38 H Creatinine 1.62 H Estim Creat Clear Calc 33.2 Estimated GFR 42 POC Glucose Random Glucose 152 H D Lactic Acid Lactic Acid F/U @ 2Hr Lactic Acid F/U @ 4Hr Calcium 8.2 L Total Bilirubin 0.4 AST 95 H ALT 123 H Alkaline Phosphatase 83 D Troponin I High Sens B-Natriuretic Peptide Total Protein 6.8 Albumin 3.6 Vitamin B12 Folate Urine Color Urine Appearance Urine pH Ur Specific Brumley Urine Protein Urine Glucose (UA) Urine Ketones Urine Blood Urine Nitrite Ur Leukocyte Esterase Ethyl Alcohol < 10 Influenza Type A (PCR) Influenza Type B (PCR) RSV RNA Qual (PCR) SARS-CoV-2 RNA (RT-PCR) 08/21/22 08/21/22 08/21/22 00:40 01:08 03:41 WBC 4.5 L RBC 3.11 L Hgb 9.7 L Hct 31.3 L MCV 100.6 H MCH 31.2 MCHC 31.0 RDW 14.6 Plt Count 160 MPV 9.8 Immature Gran % (Auto) 0.4 Neut % (Auto) 74.6 H Lymph % (Auto) 12.2 L Grayson % (Auto) 11.1 H Eos % (Auto) 1.5 Baso % (Auto) 0.2 Lymph # (Auto) 0.6 L Grayson # (Auto) 0.5 Eos # (Auto) 0.1 Baso # (Auto) 0.0 Abs Immat Gran (auto) 0.02 Absolute Neuts (auto) 3.4 Absolute Nucleated RBC 0.020 H Nucleated RBC % (auto) 0.4 H PT INR VBG pH VBG pCO2 VBG pO2 VBG HCO3 VBG O2 Saturation VBG Base Excess Sodium Potassium Chloride Carbon Dioxide Anion Gap BUN Creatinine Estim Creat Clear Calc Estimated GFR POC Glucose Random Glucose Lactic Acid Lactic Acid F/U @ 2Hr 2.1 H* Lactic Acid F/U @ 4Hr Calcium Total Bilirubin AST ALT Alkaline Phosphatase Troponin I High Sens B-Natriuretic Peptide Total Protein Albumin Vitamin B12 Folate Urine Color Yellow Urine Appearance Clear Urine pH 5.0 Ur Specific Brumley 1.010 Urine Protein Negative Urine Glucose (UA) Negative Urine Ketones Negative Urine Blood Negative Urine Nitrite Negative Ur Leukocyte Esterase Negative Ethyl Alcohol Influenza Type A (PCR) Influenza Type B (PCR) RSV RNA Qual (PCR) SARS-CoV-2 RNA (RT-PCR) 08/21/22 08/21/22 08/21/22 03:41 03:41 03:41 WBC RBC Hgb Hct MCV MCH MCHC RDW Plt Count MPV Immature Gran % (Auto) Neut % (Auto) Lymph % (Auto) Grayson % (Auto) Eos % (Auto) Baso % (Auto) Lymph # (Auto) Grayson # (Auto) Eos # (Auto) Baso # (Auto) Abs Immat Gran (auto) Absolute Neuts (auto) Absolute Nucleated RBC Nucleated RBC % (auto) PT INR VBG pH VBG pCO2 VBG pO2 VBG HCO3 VBG O2 Saturation VBG Base Excess Sodium 138 Potassium 5.2 H Chloride 101 Carbon Dioxide 24 Anion Gap 18 BUN 37 H Creatinine 1.52 H Estim Creat Clear Calc 35.4 Estimated GFR 45 POC Glucose Random Glucose 124 H Lactic Acid Lactic Acid F/U @ 2Hr Lactic Acid F/U @ 4Hr 2.5 H* Calcium 8.2 L Total Bilirubin AST ALT Alkaline Phosphatase Troponin I High Sens B-Natriuretic Peptide Total Protein Albumin Vitamin B12 917 H Folate 5.3 Urine Color Urine Appearance Urine pH Ur Specific Brumley Urine Protein Urine Glucose (UA) Urine Ketones Urine Blood Urine Nitrite Ur Leukocyte Esterase Ethyl Alcohol Influenza Type A (PCR) Influenza Type B (PCR) RSV RNA Qual (PCR) SARS-CoV-2 RNA (RT-PCR) 08/21/22 08/21/22 05:58 07:19 WBC RBC Hgb Hct MCV MCH MCHC RDW Plt Count MPV Immature Gran % (Auto) Neut % (Auto) Lymph % (Auto) Grayson % (Auto) Eos % (Auto) Baso % (Auto) Lymph # (Auto) Grayson # (Auto) Eos # (Auto) Baso # (Auto) Abs Immat Gran (auto) Absolute Neuts (auto) Absolute Nucleated RBC Nucleated RBC % (auto) PT INR VBG pH VBG pCO2 VBG pO2 VBG HCO3 VBG O2 Saturation VBG Base Excess Sodium Potassium Chloride Carbon Dioxide Anion Gap BUN Creatinine Estim Creat Clear Calc Estimated GFR POC Glucose 96 Random Glucose Lactic Acid Lactic Acid F/U @ 2Hr Lactic Acid F/U @ 4Hr Calcium Total Bilirubin AST ALT Alkaline Phosphatase Troponin I High Sens 35.3 H B-Natriuretic Peptide Total Protein Albumin Vitamin B12 Folate Urine Color Urine Appearance Urine pH Ur Specific Brumley Urine Protein Urine Glucose (UA) Urine Ketones Urine Blood Urine Nitrite Ur Leukocyte Esterase Ethyl Alcohol Influenza Type A (PCR) Influenza Type B (PCR) RSV RNA Qual (PCR) SARS-CoV-2 RNA (RT-PCR) Imaging Radiologist's impression: Impressions Chest X-Ray 08/20/22 22:15 IMPRESSION: 1. Patchy right midlung airspace disease. 2. Previous cross-sectional imaging with cavitary right lower lobe lesion. This is likely obscured by the heart border. Recommend follow-up CT. 3. 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 Chest CT 08/21/22 02:13 IMPRESSION: 1. Worsening pulmonary aeration with new coarse interlobular septal thickening and patchy opacities in the right lung and less so left lower lobe. New nodular-like right-sided pleural thickening and pleural effusion. Findings are nonspecific and could be associated with malignancy, including lymphangitic carcinomatosis and malignant pleural effusion, or an infectious/inflammatory process. Recommend clinical correlation and a very short-term follow-up. 2. Again noted cavitation and consolidative lung parenchyma in the posterior aspect of the superior right lower lobe in the area of a previously seen mass on a PET CT from 2020. 3. Worsening mediastinal lymphadenopathy. 4. Nonspecific asymmetric right-sided gynecomastia. 5. Cardiomegaly with extensive coronary artery calcifications. Recommend correlation with cardiovascular and coronary risk factors. Assessment and Plan (1) Afib: Status: Acute (2) Congestive heart failure: Status: Acute Plan 76 male with CMP and lung cancer. Presenting with Afib with RVR. On amiodarone gtt. Continue IV today and change to 400 mg daily tomorrow. Gentle diuretics. We will follow along. Procedures Date of Service Date of Service: 08/21/22
[2022-08-21 13:17] LABS: Glucose, Whole Blood 94 mg/dL (60-115)
--- NOTE | 2022-08-21 13:21 | PC.NURSE ---
report received from ED RN, pt up to floor by stretcher accompanied by RN at 1300. On assessment amiodarone gtt running through 18g IV that infiltrated at 1mg/min - drip stopped and IV removed. Pt tolerated well. Pt also has access with 18g to L IJ, site cleaned, flushed and amiodarone gtt restarted. Per protocol gtt titrated to 0.5mg/min. Pt oriented to room, call leo within reach, bed alarm on.
[2022-08-21 15:36] LABS: Glucose, Whole Blood 100 mg/dL (60-115)
[2022-08-21 20:25] LABS: Glucose, Whole Blood 105 mg/dL (60-115)
[2022-08-21] MEDS: Insulin Glargine,Hum.rec.anlog 100 UNIT/ML 10 ML VIAL 6 UNIT SUBCUT (21:45)
[2022-08-22 03:19] VITALS: BP 128/61; PULSE 92; RESP 20; TEMP 36.2; O2SAT 98
--- NOTE | 2022-08-22 04:33 | PC.NURSE ---
2100 Med pass originally documented under day shift nurse;this RN reported to pilot supervisor Med pass documentation updated manually.
[2022-08-22 07:27] VITALS: BP 141/67; PULSE 82; RESP 16; TEMP 36.1; O2SAT 95
[2022-08-22 07:36] LABS: Glucose, Whole Blood 131 mg/dL (60-115)
[2022-08-22] MEDS: Albuterol Sulfate (0.083%) 2.5 MG/3 ML VIAL.NEB INHALE (07:41)
[2022-08-22 07:43] VITALS: PULSE 80; RESP 18; O2SAT 96
[2022-08-22] MEDS: 0.9 % Sodium Chloride Flush 3 ML SYRINGE IVFLUSH (10:23)
[2022-08-22] MEDS: Apixaban 5 MG TABLET PO (10:23)
[2022-08-22] MEDS: Furosemide 40 MG/4 ML VIAL IVPUSH (10:23)
[2022-08-22] MEDS: Digoxin 0.125 MG TABLET PO (10:23)
[2022-08-22 11:02] LABS: Glucose, Whole Blood 198 mg/dL (60-115)
--- NOTE | 2022-08-22 11:23 | P.PNCA_ITS ---
Subjective Subjective Date of Service: 08/22/22 Interval history: Seen examined at bedside. Feeling good. Heart rate better controlled. Physical Exam Vital Signs: Last Vital Signs Temp 96.9 F 08/22/22 07:27 Pulse 80 08/22/22 07:43 Resp 18 08/22/22 07:43 BP 141/67 H 08/22/22 07:27 Pulse Ox 95 08/22/22 07:27 O2 Del Method 08/22/22 07:27 O2 Flow Rate 2 08/21/22 11:30 BMI result Body Mass Index 25.9 GENERAL APPEARANCE: in no acute distress. NECK: no carotid bruit, + jugular venous distention. SKIN: no suspicious lesions, warm and dry. HEART: no murmurs, irregular rate and rhythm. LUNGS: crackles both lungs ABDOMEN: soft, nontender. EXTREMITIES: no significant edema. PERIPHERAL PULSES: equal. NEUROLOGIC: No gross deficits, AAO X 3 Objective Labs and Meds Result diagrams: 08/21/22 03:41 08/21/22 03:41 Lab results: Laboratory Results - last 24 hr 08/21/22 08/21/22 08/21/22 12:59 15:27 19:42 POC Glucose 94 100 105 08/22/22 08/22/22 07:32 10:58 POC Glucose 131 H 198 H Progress Note: A&P Assessment and plan (1) Afib: Status: Acute (2) Congestive heart failure: Status: Acute Plan [age] gentleman with lung cancer and cardiomyopathy with severely r educed ejection fraction. Presenting with AFib with RVR. Has been on amiodarone with improvement in heart rates. Stop the drip and put him on 200 mg p.o. b.i.d.. Can be changed to once a day amiodarone in a week. Stop the digoxin. Can change Lasix to 40 mg p.o. once a day. On apixaban 5 mg twice a day for anticoagulation. Overall stable from cardiovascular point of view. Thank you for allowing me to participate in the care of your patient. Please feel free to contact me if you have any questions. Time Spent With Patient Time: Total time spent is greater than 50% in coordination of care (as documented) at patient's floor/unit and/or counseling patient: Progress Note: Quality Stroke Does the patient have a stroke diagnosis?: No Procedures Date of Service Date of Service: 08/22/22
[2022-08-22 11:42] VITALS: BP 139/88; PULSE 80; RESP 17; TEMP 36.4; O2SAT 98
--- NOTE | 2022-08-22 11:58 | P.DS_ITS ---
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 As per EMS, they were called because of patient's palpitations/ chest discomfort/mild dyspnea and he was found to be in AFib at the time of EMS arrival.? Patient is a poor historian and does not have any complaints at this time.? He is awake but disoriented to place, time and person.? Unable to have a conversation.? Patient's code status was discussed with patient's daughter who is healthcare proxy by ER provider.? States that patient is DNR/ DNI and family is considering switching the patient to comfort measures only.? Quality Control Assistant was consulted from the ER who recommended amiodarone bolus followed by amiodarone d hospital course: Patient was admitted for acute on chronic Systolic CHF and paroxysmal atrial fibrillation rapid ventricular response. He was treated with IV Lasix and IV amiodarone infusion. His heart rate became better controlled and he diuresed well. he was transitioned to p.o. amiodarone 200 mg b.i.d. he was also noted to have hyperkalemia which improved low,. For squamous cell lung cancer of the right lung family is considering end of life care. For his CKD III creatinine remained stable. For diabetes he was treated with insulin. For COPD is not noted to be in exacerbation. patient appears to be feeling better will be discharged home. Time Spent with Patient Time attestation: Total time spent providing and/or coordinating discharge services: Discharge coordination time: Greater than 30 minutes Quality: Safe Use of Opioids Does Pt have an Active Cancer Diagnosis on the Problem List?: Yes Opioid Measure Date for [facility] Report: 07/23/22 Opioid Measure Time for [facility] Report: 11:58 Quality: Stroke Does the patient have a stroke diagnosis?: No Physical Exam Vital Signs: Vital Signs: Last Vital Signs Temp 97.5 F 08/22/22 11:42 Pulse 80 08/22/22 11:42 Resp 17 08/22/22 11:42 BP 139/88 08/22/22 11:42 Pulse Ox 98 08/22/22 11:42 O2 Del Method 08/22/22 11:42 O2 Flow Rate 2 08/21/22 11:30 BMI result Body Mass Index 25.9 GENERAL APPEARANCE: in no acute distress. NECK: no carotid bruit, + jugular venous distention. SKIN: no suspicious lesions, warm and dry. HEART: no murmurs, irregular rate and rhythm. LUNGS: crackles both lungs ABDOMEN: soft, nontender. EXTREMITIES: no significant edema. PERIPHERAL PULSES: equal. NEUROLOGIC: No gross deficits, AAO X 3 DS: Data Data Completed and Pending Labs on day of discharge: Laboratory Results - last 24 hr 08/21/22 08/21/22 08/21/22 12:59 15:27 19:42 POC Glucose 94 100 105 08/22/22 08/22/22 07:32 10:58 POC Glucose 131 H 198 H Preliminary micro results at discharge 08/20/22 21:33 Blood Culture - Preliminary Blood - Venous No growth after 24 hours. 08/20/22 21:21 Blood Culture - Preliminary Blood - Venous No growth after 24 hours. Discharge Plan Discharge Anticipated Discharge Date/Time: 08/22/22 11:56 Patient Disposition: Home Health Service Discharge Diagnosis: chf, afib Referrals: [facility] [Other] - 1 Week Ludin Anderson MD [Primary Care Provider] - 1 Week Discharge Medications: New amiodarone 200 mg Tablet 200 mg PO BID Qty: 44 0RF Rx Instructions: after one week decrease to 200mg daily Continued cyanocobalamin (vitamin B-12) 1,000 mcg tablet extended release 1 tab PO DAILY Eliquis 5 mg Tablet 5 mg PO BID albuterol sulfate 90 mcg/actuation Hfa Aerosol Inhaler 2 puff INHALATION Q4-6H PRN (Reason: Shortness Of Breath Or Wheezing) multivitamin Tablet 1 tab PO DAILY furosemide 40 mg tablet 1 tab PO DAILY albuterol sulfate 2.5 mg /3 mL (0.083 %) solution for nebulization 1 amp inhalation TID metoprolol succinate 50 mg tablet extended release 24 hr 1 tab PO DAILY metformin 500 mg tablet extended release 24 hr 2 tab PO BID insulin lispro [Humalog KwikPen Insulin] 100 unit/mL insulin pen See Rx Instructions .ROUTE .COMPLEX Rx Instructions: SLIDING SCALE insulin glargine [Lantus Solostar U-100 Insulin] 100 unit/mL (3 mL) insulin pen 6 unit subcut BEDTIME Discontinued atorvastatin 80 mg tablet 1 tab PO BEDTIME digoxin 125 mcg (0.125 mg) Tablet 125 mcg PO DAILY Discharge Orders: Discharge Order (Routine); Ordered 08/22/22 Ordered By: Kavon Ortiz Diet: Advance to usual diet Activity on Discharge: As tolerated Stand Alone Forms: Patient Portal Discharge page Care Plan Goals: keep comfortable Health Concerns: chf, afib Plan of Treatment: amiodarone as prescribed, stop digoxin, lipitor, monitor weight gain and swelling and adjust lasix accordingly Assessment: see above
[2022-08-22] MEDS: Insulin Lispro 100 UNIT/ML 3 ML VIAL SUBCUT (12:25)
--- NOTE | 2022-08-22 12:29 | MHC.CM.PN ---
Per intake CM note, patient's step daughter works for [employer]. Additionally, per intake CM note, plan is for D/C w/[facility] palliative care then transition to hospice. Referral sent to [facility] [employer] given it was not sent as known upon intake. MD order for D/C w/home health services. CM acknowledge and initiate plan's motion.
== END 2022-08-22 13:00 | disposition home health service (06) | DRG 291 ==
LOC: HO.ED 23:34 → HO.EDOVER 08-21 01:06 → HO.IMC 08-21 11:50
PROVIDERS: Student in an Organized Health Care Education/Training Program; Admitting Provider Student in an Organized Health Care Education/Training Program; Emergency Provider Emergency Medicine; PCP Internal Medicine; Visit Provider Internal Medicine
DX: I13.0 Hypertensive heart and chronic kidney disease with heart failure and stage 1 through stage 4 chronic kidney disease, or unspecified chronic kidney disease (principal); I50.23 Acute on chronic systolic (congestive) heart failure; C78.01 Secondary malignant neoplasm of right lung; E87.20 Acidosis, unspecified; N17.9 Acute kidney failure, unspecified; I25.10 Atherosclerotic heart disease of native coronary artery without angina pectoris; J44.9 Chronic obstructive pulmonary disease, unspecified; I25.5 Ischemic cardiomyopathy; F17.210 Nicotine dependence, cigarettes, uncomplicated; Z66 Do not resuscitate; G30.9 Alzheimer's disease, unspecified; F02.80 Dementia in other diseases classified elsewhere, unspecified severity, without behavioral disturbance, psychotic disturbance, mood disturbance, and anxiety; I48.0 Paroxysmal atrial fibrillation; I87.2 Venous insufficiency (chronic) (peripheral); E78.2 Mixed hyperlipidemia; E87.5 Hyperkalemia; E11.22 Type 2 diabetes mellitus with diabetic chronic kidney disease; D53.9 Nutritional anemia, unspecified; D63.1 Anemia in chronic kidney disease; D63.0 Anemia in neoplastic disease; N18.30 Chronic kidney disease, stage 3 unspecified; Z20.822 Contact with and (suspected) exposure to COVID-19; Z92.3 Personal history of irradiation; Z71.6 Tobacco abuse counseling; Z86.73 Personal history of transient ischemic attack (TIA), and cerebral infarction without residual deficits; Z79.4 Long term (current) use of insulin; Z79.01 Long term (current) use of anticoagulants; Z79.84 Long term (current) use of oral hypoglycemic drugs; Z79.899 Other long term (current) drug therapy
CPT/HCPCS: 0241U; 36415; 71045; 71250; 80048; 80053; 81003; 82077; 82607; 82746; 82803; 82947; 83605; 83880; 84484; 85025; 85610; 87040; 93005; 93306; 94640; 94660; 99285; J0282; J1160; J1940; J2543; Q9957

== ENCOUNTER 2022-09-12 12:09 | Inpatient (IN) | payer MEDICARE, MEDICAID, SELFPAY ==
--- NOTE | ~2022-09-12 | XR_ITS ---
EXAMINATION: XR CHEST CLINICAL INFORMATION: Crackles. COMPARISON: 09/12/2022 chest radiograph. TECHNIQUE: Frontal view of the chest was obtained. FINDINGS: There is a small right pleural effusion with layering. Mild superjacent linear markings are seen. The left lung is clear. The heart is mildly enlarged. The mediastinal structures are unremarkable. XR/XR chest 1V IMPRESSION: Interval decrease in pulmonary vascular congestion, but mild increased right pleural effusion with layering and atelectasis.
--- NOTE | ~2022-09-12 | XR_ITS ---
EXAMINATION: XR CHEST CLINICAL INFORMATION: Cough with shortness of breath COMPARISON: August 20, 2022 TECHNIQUE: AP portable view of the chest was obtained. FINDINGS: There is an increase in parenchymal disease in what appears to be small pleural effusions bilaterally. There is some airspace disease seen within the mid and upper right lung as well. The cardiopericardial silhouette is enlarged. XR/XR chest 1V IMPRESSION: Increase in bibasilar airspace disease and pleural effusions as well as more prominent airspace disease within the mid and upper right lung. Above findings may be related to multifocal pneumonia versus pulmonary edema of cardiogenic or noncardiogenic etiology. Cardiomegaly.
[2022-09-12 12:17] VITALS: BP 114/72; PULSE 118; O2SAT 94
[2022-09-12 12:18] VITALS: BP 119/66; PULSE 109; RESP 16; TEMP 36.6; O2SAT 88; BMI 22.8
--- NOTE | 2022-09-12 13:49 | PC.NURSE ---
Dr. Barrett aware of patients O2. Put patient on 2 L oxygen
--- NOTE | 2022-09-12 13:54 | ED_ITS ---
HPI - Altered Mental Status General Chief Complaint: Altered Mental Status Stated Complaint: Gen Weakness, Abd Pain per EMS Time Seen by Provider: 09/12/22 12:29 Source: EMS and old records reviewed Mode of arrival: EMS Limitations: altered mental status History of Present Illness HPI narrative: 76-year-old male presents to the emergency department today with question of altered mental status. Patient has history of dementia and is unable to verbalize specific complaints. HPI, review of systems, and physical exam may be limited secondary to the patient's chronic altered mental status MD complaint: altered mental status Severity: moderate Consistency of symptoms: unknown Associated symptoms: weakness Related Data Home Medications Medication Instructions Recorded Confirmed cyanocobalamin (vitamin B-12) 1 tab PO DAILY 12/01/20 08/20/22 1,000 mcg tablet,extended release apixaban 5 mg tablet (Eliquis) 5 mg PO BID 06/12/22 08/20/22 albuterol sulfate 90 mcg/actuation 2 puff inhalation Q4-6H PRN 07/16/22 08/20/22 aerosol inhaler Shortness Of Breath Or Wheezing albuterol sulfate 2.5 mg/3 mL 1 amp inhalation TID 08/20/22 08/20/22 (0.083 %) solution for nebulization furosemide 40 mg tablet 1 tab PO DAILY 08/20/22 08/20/22 insulin glargine 100 unit/mL (3 6 unit subcut BEDTIME 08/20/22 08/20/22 mL) subcutaneous pen (Lantus Solostar U-100 Insulin) insulin lispro 100 unit/mL See Rx Instructions .Route .COMPLEX 08/20/22 08/20/22 subcutaneous pen (Humalog KwikPen (U-100) Insulin) metformin 500 mg tablet,extended 2 tab PO BID 08/20/22 08/20/22 release 24 hr metoprolol succinate 50 mg 1 tab PO DAILY 08/20/22 08/20/22 tablet,extended release 24 hr multivitamin 1 tab PO DAILY 08/20/22 08/20/22 Previous Rx's Medication Instructions Recorded amiodarone 200 mg tablet 200 mg PO BID #44 tabs 08/22/22 Allergies Allergy/AdvReac Type Severity Reaction Status Date / Time No Known Allergies Allergy Mild Verified 07/16/22 12:04 Review of Systems Review of Systems: Yes Unobtainable due to mental condition and Unobtainable due to mental status Neurologic: Reports confusion Psychiatric: Psychiatric: Reports confusion [facility] Past Medical History Medical History (Updated 09/12/22 @ 16:21 by Abner Barrett MD) Asthma CAD (coronary artery disease) Cerebral infarction COPD (chronic obstructive pulmonary disease) Diabetes mellitus type 2, insulin dependent Encephalopathy GERD (gastroesophageal reflux disease) Gynecomastia Hyperlipidemia Hypertension Ischemic cardiomyopathy Right lower lobe lung mass Scrotal abscess Smoker TIA (transient ischemic attack) Tubular adenoma of colon Venous stasis dermatitis of both lower extremities Vitamin B 12 deficiency Surgical History History of colonoscopy History of exploratory laparotomy History of heart artery stent History of hernia repair History of hydrocelectomy History of left inguinal hernia repair History of skin graft Family History Family History Son HTN (hypertension) Social History Social History Household Members: Spouse Housing: Apartment Are you a primary director of primary care to a significant other at home: No Do you presently have visiting nurse or other home services: Yes Alcohol intake: unknown Patient Tobacco Use Status: Current everyday Tobacco user Tobacco use type: Cigarette Cigarette Packs Per Day: 0.5 Cigarettes Per Day: 4 Years Smoked: unknown Smoked in Last 30 Days: No e-Cigarette/Vaping Use: Currently Using Use of substances other than those prescribed or required for medical reasons: No Substance Use Type: Marijuana Advance Directives: Yes Advance Directives on File: Yes Advance Directives Date on File: 12/05/20 service: No Current occupational status: retired Physical Exam ED Vital Signs: Vital Signs - 24 hr 09/12/22 12:18 09/12/22 15:22 Temperature 98 F 96.2 F L Pulse Rate 109 H 97 Respiratory Rate 16 24 H Blood Pressure 119/66 116/74 Pulse Oximetry 88 L 93 Oxygen Delivery Method Room Air Nasal Cannula Oxygen Flow Rate 2 BMI result Body Mass Index 22.8 vital signs noted. Patient is mildly tachycardic and hypoxemic Const General: cooperative, comfortable, alert, awake, acute distress mild and con fusion Nutritional Appearance: average body habitus Orientation/consciousness: confusion HENMT Head: Yes normal to inspection, Yes normocephalic and Yes atraumatic Ears: external ears normal General nose exam: Normal external nose present Face and sinus: Yes normal facial exam Mouth: Normal oral and palatal mucosa present Eyes Conjunctivae: conjunctivae normal Sclerae: sclerae normal Pupils: Equal, round and reactive pupils present EOM: EOMs intact bilaterally Neck Neck: Yes normal visual inspection and Yes full ROM Chest Chest palpation & inspection: normal inspection of the chest and normal palpation of entire chest wall Resp Effort & Inspection: audible wheezes, no cough, respiratory distress and uses accessory muscles Auscultation: rales, wheezes and diminished lung sounds Cardio Rate: regular rate Rhythm: regular rhythm Heart sounds: Murmur heart sound present GI Inspection: Yes normal to inspection Palpation (GI): Soft to palpation and nontender Back/Spine/Pelvis Cervical Spine: normal cervical lordosis and cervical ROM normal Skin General skin exam: no rashes or lesions noted, no mottling and no pallor Neuro General: moves all extremities and confusion Cranial nerves: Yes CN's II-XII intact bilaterally and Yes Equal, round and reactive pupils present MDM - Altered Mental Status MDM Narrative Medical decision making narrative: 76-year-old male with past history of dementia presents to the ER with confusion. Hypoxemic on room air. Laboratories and chest x-ray documented below. New right multifocal infiltrates possibly representing pneumonia versus CHF. BNP elevated as well. Will treat with antibiotics and diuresis. The patient will be admitted to the hospital for additional management Medical Records Attestation: I reviewed the patient's medical records. Lab Data Attestation: I reviewed the patient's lab results. Lab results narrative: labs show slightly increased potassium and creatinine. Result diagrams: 09/12/22 14:30 09/12/22 14:30 Labs: Lab Results 09/12/22 09/12/22 09/12/22 Range/Units 14:30 14:30 14:30 WBC 4.3 L (4.8-10.8) X10*3/uL RBC 3.54 L (4.60-5.80) X10*6/uL Hgb 11.3 L (14.0-18.0) g/dl Hct 35.7 L (42.0-52.0) % MCV 100.8 H (80.0-98.0) fL MCH 31.9 (27.0-33.0) pg MCHC 31.7 (31.0-36.0) g/dl RDW 14.6 (11.0-16.0) % Plt Count 217 D (160-400) X10*3/uL MPV 9.9 (9.4-12.4) fL Immature Gran % (Auto) 0.5 H (0.0-0.4) % Neut % (Auto) 65.6 (45-73) % Lymph % (Auto) 14.4 L (20-40) % Atlantic % (Auto) 15.5 H (2-11) % Eos % (Auto) 3.8 (0-4) % Baso % (Auto) 0.2 (0-2) % Lymph # (Auto) 0.6 L (1.2-4.9) X10*3/uL Atlantic # (Auto) 0.7 (0.1-1.2) X10*3/uL Eos # (Auto) 0.2 (0.0-0.4) X10*3/uL Baso # (Auto) 0.0 (0.0-0.2) X10*3/uL Abs Immat Gran (auto) 0.02 (0.00-0.03) X10*3/uL Absolute Neuts (auto) 2.8 (2.0-8.3) x10*3/uL Absolute Nucleated RBC 0.000 (0.0-0.012) X10*3/uL Nucleated RBC % (auto) 0.0 (0.0-0.2) /100WBC Sodium 133 L (135-145) mmol/L Potassium 5.5 H (3.3-5.1) mmol/L Chloride 100 (96-108) mmol/L Carbon Dioxide 25 (22-29) mmol/L Anion Gap 14 (12-20) BUN 23 H (9-16) mg/dL Creatinine 1.45 H (0.5-1.4) mg/dL Estim Creat Clear Calc 41.0 Estimated GFR 47 Random Glucose 162 H (60-115) mg/dL Calcium 9.1 D (8.4-10.2) mg/dL Troponin I High Sens (<3.5-35.0) ng/L B-Natriuretic Peptide 3021 H (<100) pg/mL 09/12/22 Range/Units 14:30 WBC (4.8-10.8) X10*3/uL RBC (4.60-5.80) X10*6/uL Hgb (14.0-18.0) g/dl Hct (42.0-52.0) % MCV (80.0-98.0) fL MCH (27.0-33.0) pg MCHC (31.0-36.0) g/dl RDW (11.0-16.0) % Plt Count (160-400) X10*3/uL MPV (9.4-12.4) fL Immature Gran % (Auto) (0.0-0.4) % Neut % (Auto) (45-73) % Lymph % (Auto) (20-40) % Atlantic % (Auto) (2-11) % Eos % (Auto) (0-4) % Baso % (Auto) (0-2) % Lymph # (Auto) (1.2-4.9) X10*3/uL Atlantic # (Auto) (0.1-1.2) X10*3/uL Eos # (Auto) (0.0-0.4) X10*3/uL Baso # (Auto) (0.0-0.2) X10*3/uL Abs Immat Gran (auto) (0.00-0.03) X10*3/uL Absolute Neuts (auto) (2.0-8.3) x10*3/uL Absolute Nucleated RBC (0.0-0.012) X10*3/uL Nucleated RBC % (auto) (0.0-0.2) /100WBC Sodium (135-145) mmol/L Potassium (3.3-5.1) mmol/L Chloride (96-108) mmol/L Carbon Dioxide (22-29) mmol/L Anion Gap (12-20) BUN (9-16) mg/dL Creatinine (0.5-1.4) mg/dL Estim Creat Clear Calc Estimated GFR Random Glucose (60-115) mg/dL Calcium (8.4-10.2) mg/dL Troponin I High Sens 22.1 (<3.5-35.0) ng/L B-Natriuretic Peptide (<100) pg/mL Imaging Data Chest x-ray: Attestation: I personally reviewed and interpreted this imaging study as follows: My impression: I have visualized the CXR which shows right sided multi-focal pneumonia. This study is pending radiologist's interpretation. Radiologist's impression: IMPRESSION: Increase in bibasilar airspace disease and pleural effusions as well as more prominent airspace disease within the mid and upper right lung. Above findings may be related to multifocal pneumonia versus pulmonary edema of cardiogenic or noncardiogenic etiology ECG Data ECG #1: ECG interpretation date: 09/12/22 ECG interpretation time: 15:15 Prior ECG tracings: not available for review Interpretation: atrial fibrillation 108. QRS widened at 170 milliseconds secondary to left bundle branch block. QTC borderline at 550. Leftward axis Discharge Plan Discharge Clinical Impression: Afib, Altered mental status, Congestive heart failure, Pneumonia Prescriptions: No Action cyanocobalamin (vitamin B-12) 1,000 mcg tablet extended release 1 tab PO DAILY Eliquis 5 mg Tablet 5 mg PO BID albuterol sulfate 90 mcg/actuation Hfa Aerosol Inhaler 2 puff INHALATION Q4-6H PRN (Reason: Shortness Of Breath Or Wheezing) multivitamin Tablet 1 tab PO DAILY furosemide 40 mg tablet 1 tab PO DAILY albuterol sulfate 2.5 mg /3 mL (0.083 %) solution for nebulization 1 amp inhalation TID metoprolol succinate 50 mg tablet extended release 24 hr 1 tab PO DAILY metformin 500 mg tablet extended release 24 hr 2 tab PO BID insulin lispro [Humalog KwikPen Insulin] 100 unit/mL insulin pen See Rx Instructions .ROUTE .COMPLEX Rx Instructions: SLIDING SCALE insulin glargine [Lantus Solostar U-100 Insulin] 100 unit/mL (3 mL) insulin pen 6 unit subcut BEDTIME amiodarone 200 mg Tablet 200 mg PO BID Qty: 44 0RF Rx Instructions: after one week decrease to 200mg daily
--- NOTE | 2022-09-12 14:04 | ECG_ITS ---
Test Reason : GENERAL MEDICAL Blood Pressure : / mmHG Vent. Rate : 108 BPM Atrial Rate : 000 BPM P-R Int : 000 ms QRS Dur : 170 ms QT Int : 412 ms P-R-T Axes : 000 -48 120 degrees QTc Int : 552 ms Atrial fibrillation with rapid ventricular response Left axis deviation Non-specific intra-ventricular conduction block Minimal voltage criteria for LVH, may be normal variant ( [place] product ) Inferior infarct (cited on or before 23-MAR-2005) T wave abnormality, consider anterolateral ischemia Abnormal ECG When compared with ECG of 20-AUG-2022 21:00, Non-specific intra-ventricular conduction block has replaced Right bundle branch block Borderline criteria for Lateral infarct are no longer Present Referred By: Abner Barrett Electronically Signed By:Keo Sanon
[2022-09-12 14:36] LABS: Basophils Percent Auto 0.2 % (0-2); Eosinophils Absolute Auto 0.2 X10*3/uL (0.0-0.4); Eosinophils Percent Auto 3.8 % (0-4); Hematocrit 35.7 % (42.0-52.0); Hemoglobin 11.3 g/dl (14.0-18.0); Imm Gran Abs Auto 0.02 X10*3/uL (0.00-0.03); Imm Gran Pct Auto 0.5 % (0.0-0.4); Lymphocytes Absolute Auto 0.6 X10*3/uL (1.2-4.9); Lymphocytes Percent Auto 14.4 % (20-40); MANUAL DIFF FLAG NO; Mean Corpuscular HGB Conc 31.7 g/dl (31.0-36.0); Mean Corpuscular Hemoglobin 31.9 pg (27.0-33.0); Mean Corpuscular Volume 100.8 fL (80.0-98.0); Mean Platelet Volume 9.9 fL (9.4-12.4); Monocytes Absolute Auto 0.7 X10*3/uL (0.1-1.2); Monocytes Percent Auto 15.5 % (2-11); Neutrophils Absolute Auto 2.8 x10*3/uL (2.0-8.3); Neutrophils Percent Auto 65.6 % (45-73); Platelet Count 217 X10*3/uL (160-400); Red Blood Count 3.54 X10*6/uL (4.60-5.80); Red Cell Distribution Width 14.6 % (11.0-16.0); White Blood Count 4.3 X10*3/uL (4.8-10.8)
[2022-09-12 14:55] LABS: Anion Gap 14 (12-20); Blood Urea Nitrogen 23 mg/dL (9-16); Calcium 9.1 mg/dL (8.4-10.2); Carbon Dioxide 25 mmol/L (22-29); Chloride 100 mmol/L (96-108); Estimated Glomerular Filt Rate 47; Glucose Random 162 mg/dL (60-115); Potassium 5.5 mmol/L (3.3-5.1); Sodium 133 mmol/L (135-145)
[2022-09-12 14:57] LABS: B Type Natriuretic Peptide 3021 pg/mL (<100)
[2022-09-12 15:01] LABS: Troponin-I High Sensitivity 22.1 ng/L (<3.5-35.0)
[2022-09-12 15:22] VITALS: BP 116/74; PULSE 97; RESP 24; TEMP 35.7; O2SAT 93
--- NOTE | 2022-09-12 16:51 | P.HPHOSP_ITS ---
History of Present Illness Date of Service: 09/12/22 Attending physician on admission: [facility] Chief Complaint: not feeling well This is a 76 year old male with history of dementia, lung cancer, among others who was sent to the emergency department for evaluation as he was reportedly not feeling well. Patient has a history of dementia and he is oriented only to person, he is unable to provide any significant medical history. History was primarily obtained from his daughter over the phone. She states that his live- in girlfriend reported abdominal pain last evening. He was treated with Pepto- Bismol and Ritu-Mellott. He has also reportedly had a dry cough. It is unclear if he has had any other respiratory symptoms. Although the patient is an unreliable historian he denies any abdominal pain chest pain or difficulty breathing at this time. In the emergency department he was noted to be hypoxic with oxygen saturation of 88% on room air. Chest x-ray showed evidence of pneumonia versus pulmonary edema. BNP was over 3000 which has increased substantially from his previous admission in August. He received IV antibiotics as well as IV Lasix. Potassium was elevated at 5.5. He was admitted for further management pneumonia, CHF. Review of Systems Review of Systems: Patient is an unreliable historian due to underlying dementia. Unable to obtain reliable review of systems [facility] Medical History Asthma CAD (coronary artery disease) Cerebral infarction COPD (chronic obstructive pulmonary disease) Diabetes mellitus type 2, insulin dependent Encephalopathy GERD (gastroesophageal reflux disease) Gynecomastia Hyperlipidemia Hypertension Ischemic cardiomyopathy Right lower lobe lung mass Scrotal abscess Smoker TIA (transient ischemic attack) Tubular adenoma of colon Venous stasis dermatitis of both lower extremities Vitamin B 12 deficiency Family History Son HTN (hypertension) Surgical History History of colonoscopy History of exploratory laparotomy History of heart artery stent History of hernia repair History of hydrocelectomy History of left inguinal hernia repair History of skin graft Social History Household Members: Spouse Housing: Apartment Are you a primary health care manager to a significant other at home: No Do you presently have visiting nurse or other home services: Yes Alcohol intake: unknown Patient Tobacco Use Status: Current everyday Tobacco user Tobacco use type: Cigarette Cigarette Packs Per Day: 0.5 Cigarettes Per Day: 4 Years Smoked: unknown Smoked in Last 30 Days: No e-Cigarette/Vaping Use: Currently Using Use of substances other than those prescribed or required for medical reasons: No Substance Use Type: Marijuana Advance Directives: Yes Advance Directives on File: Yes Advance Directives Date on File: 12/05/20 service: No Current occupational status: retired Meds Allergies Allergy/AdvReac Type Severity Reaction Status Date / Time No Known Allergies Allergy Mild Verified 07/16/22 12:04 Active Medications: Current Medications Azithromycin 500 mg/ Sodium (Chloride) 250 mls @ 125 mls/hr IV ONCE ONE Stop: 09/12/22 17:45 Pharmacy Consult (Consult Rx Perform Med Rec) 1 each MISCELLANE ONCE PRN PRN Reason: Consult order Home Medications Medication Instructions Recorded Confirmed Last Taken Type cyanocobalamin (vitamin B-12) 1 tab PO DAILY 12/01/20 08/20/22 08/19/22 History 1,000 mcg tablet,extended release apixaban 5 mg tablet (Eliquis) 5 mg PO BID 06/12/22 08/20/22 08/19/22 History albuterol sulfate 90 mcg/actuation 2 puff inhalation Q4-6H PRN 07/16/22 08/20/22 08/19/22 History aerosol inhaler Shortness Of Breath Or Wheezing albuterol sulfate 2.5 mg/3 mL 1 amp inhalation TID 08/20/22 08/20/22 08/19/22 History (0.083 %) solution for nebulization furosemide 40 mg tablet 1 tab PO DAILY 08/20/22 08/20/22 08/19/22 History insulin glargine 100 unit/mL (3 6 unit subcut BEDTIME 08/20/22 08/20/22 08/19/22 History mL) subcutaneous pen (Lantus Solostar U-100 Insulin) insulin lispro 100 unit/mL See Rx Instructions .Route .COMPLEX 08/20/22 08/20/22 08/19/22 History subcutaneous pen (Humalog KwikPen (U-100) Insulin) metformin 500 mg tablet,extended 2 tab PO BID 11/08/0108/20/22 08/19/22 History release 24 hr metoprolol succinate 50 mg 1 tab PO DAILY 08/20/22 08/20/22 08/19/22 History tablet,extended release 24 hr multivitamin 1 tab PO DAILY 08/20/22 08/20/22 08/19/22 History Physical Exam Vital Signs and Narrative: Vital Signs: Last Vital Signs Temp 96.2 F L 09/12/22 15: Pulse 97 09/12/22 15:22 Resp 24 H 09/12/22 15:22 BP 116/74 09/12/22 15:22 Pulse Ox 93 09/12/22 15:22 O2 Del Method 09/12/22 15:22 O2 Flow Rate 2 09/12/22 15:22 BMI result Body Mass Index 22.8 Const: Other: patient is able to tell me his full name. He is disoriented to place and situation General: alert and awake Nutritional Appearance: average body habitus Orientation/consciousness: oriented to person Resp: Effort & Inspection: normal respiratory effort and not tachypneic Auscultation: rales Cardio: Rate: regular rate Heart sounds: S1 normal heart sound present and S2 normal heart sound present GI: Inspection: No distended Palpation (GI): Soft to palpation and nontender Neuro: Other: no focal deficits appreciated. following commands and moving all extremities General: oriented to person Extrem: Other: b/l 2-3+ pitting edema Results Labs CBC and Chem 7: 09/12/22 14:30 09/12/22 14:30 Labs: Laboratory Results - last 24 hr 09/12/22 09/12/22 09/12/22 14:30 14:30 14:30 MCV 100.8 H MCH 31.9 MCHC 31.7 RDW 14.6 Plt Count 217 D MPV 9.9 Immature Gran % (Auto) 0.5 H Neut % (Auto) 65.6 Lymph % (Auto) 14.4 L Becker % (Auto) 15.5 H Eos % (Auto) 3.8 Baso % (Auto) 0.2 Lymph # (Auto) 0.6 L Becker # (Auto) 0.7 Eos # (Auto) 0.2 Baso # (Auto) 0.0 Abs Immat Gran (auto) 0.02 Absolute Neuts (auto) 2.8 Absolute Nucleated RBC 0.000 Nucleated RBC % (auto) 0.0 Anion Gap 14 Estim Creat Clear Calc 41.0 Estimated GFR 47 Random Glucose 162 H Calcium 9.1 D Troponin I High Sens B-Natriuretic Peptide 3021 H 09/12/22 14:30 MCV MCH MCHC RDW Plt Count MPV Immature Gran % (Auto) Neut % (Auto) Lymph % (Auto) Becker % (Auto) Eos % (Auto) Baso % (Auto) Lymph # (Auto) Becker # (Auto) Eos # (Auto) Baso # (Auto) Abs Immat Gran (auto) Absolute Neuts (auto) Absolute Nucleated RBC Nucleated RBC % (auto) Anion Gap Estim Creat Clear Calc Estimated GFR Random Glucose Calcium Troponin I High Sens 22.1 B-Natriuretic Peptide Imaging Radiologist's Impressions: Impressions Chest X-Ray 09/12/22 15:06 IMPRESSION: Increase in bibasilar airspace disease and pleural effusions as well as more prominent airspace disease within the mid and upper right lung. Above findings may be related to multifocal pneumonia versus pulmonary edema of cardiogenic or noncardiogenic etiology. Cardiomegaly. Assessment and Plan (1) Congestive heart failure: Qualifiers: Heart failure chronicity: acute on chronic Heart failure type: unspecified Qualified Code(s): I50.9 - Heart failure, unspecified Status: Acute (2) Pneumonia: Qualifiers: Laterality: right Lung location: middle lobe of lung Pneumonia type: due to unspecified organism Qualified Code(s): J18.9 - Pneumonia, unspecified organism Status: Acute Plan This is a 76 year old [place]ian-speaking male with history of dementia (baseline oriented to person only), PAF, HFrEF, who presented with complaints of not feeling well found to have CHF and possible pneumonia Acute on chronic HF with reduced EF/Right heart failure echo from 09/01 - EF 20-25%, severely decreased right ventricular systolic function, wall motion abnormality, moderate tricuspid valve regurgitation and severe pulmonary hypertension elevated BNP, leg edema, crackles low sodium diet, follow Intake and output ekg with twave inversions v2-v4, cycle trops -IV lasix -Cardiology consult Acute respiratory failure with hypoxia Oxygen saturation 88% on room air on arrival Secondary to decompensated CHF and possible underlying pneumonia on a background of lung cancer Supplemental oxygen, wean as tolerated Community-acquired pneumonia meets sepsis criteria with tachycardia, tachypnea. no leukocytosis Lactic acid, blood cultures pending -IV ceftriaxone, doxycycline Hyperkalemia Kayexalate -repeat BMP in a.m. CKD3 creatinine appears close to baseline DM no longer on metformin -SSI,POCs Lung cancer currently not pursuing active treatment Under palliative care med rec pending at the time of admission Code status-DNR/DNI Healthcare proxy-daughter, Vani Galarza [phone] Dispo - daughter says patient lives with his GF who is ill equipped to take care of him and she doesn't think he is able to return home. PT eval when more stable Quality Stroke Does the patient have a stroke diagnosis?: No VTE Prior VTE?: No VTE Risk Level:: Medical - moderate - high VTE Device Contraindication: N/A - Device Ordered VTE Drug Contraindication: N/A - Med Ordered
--- NOTE | 2022-09-12 16:56 | PC.NURSE ---
Antibiotics started late due to cultures needing to be drawn
[2022-09-12 17:02] VITALS: BP 123/68; PULSE 89; RESP 21; TEMP 35.9; O2SAT 94
[2022-09-12] MEDS: Furosemide 40 MG/4 ML VIAL IVPUSH (17:05)
[2022-09-12] MEDS: cefTRIAXone sodium 1 GM in 0.9 % Sodium Chloride 50 ML IV (17:06)
[2022-09-12 17:12] LABS: Appearance Urine Clear; Color Urine Yellow; Glucose Urine UA Negative (Negative); Leukocyte Esterase Urine Negative (Negative); Nitrite Urine Negative (Negative); Specific Gravity - Urine 1.015 (1.005-1.025); UMIC TRIGGER UACC YES; Urine Blood Large (3+) (Negative); Urine Ketones Negative (Negative); Urine Protein Trace mg/dL (Neg-Trace)
[2022-09-12 17:18] LABS: Lactic Acid 1.5 mmol/L (0.5-2.0)
[2022-09-12 17:21] LABS: Bacteria Urine None Seen (None Seen); RBC Urine >20 /HPF (0-2); Squamous Epithelial Cell Urine 0-2 /HPF (0-2); WBC Urine 0-5 /HPF (0-5)
[2022-09-12 17:51] LABS: Influenza A PCR NEGATIVE (Negative); Influenza B PCR NEGATIVE (Negative); Resp Syncy Virus RNA Qual PCR NEGATIVE (Negative); SARS COV2 PCR INHOUSE NEGATIVE (Negative)
[2022-09-12] MEDS: Azithromycin 500 MG in 0.9 % Sodium Chloride 250 ML 125 MG IV (17:56)
[2022-09-12 18:14] LABS: Troponin-I High Sensitivity 30.2 ng/L (<3.5-35.0)
--- NOTE | 2022-09-12 18:30 | PC.NURSE ---
Patients family member called at [phone] per MIL Arreola request for med rec.
--- NOTE | 2022-09-12 19:07 | PC.NURSE ---
Kayexlate and lasix given late due to medications not being verified by pharmacy
[2022-09-12] MEDS: Sodium Polystyrene Sulfon/Sorb 15 GM/60 ML ORAL.SUSP PO (19:25)
--- NOTE | 2022-09-12 19:49 | PC.NURSE ---
nurse to kennye report given to mukesh holden. RN stats to bring pt to rm 462, instead of planned 452. read back confirmed with nurse
[2022-09-12 20:47] VITALS: BP 108/70; PULSE 102; RESP 18; TEMP 37.1; O2SAT 95
[2022-09-12 20:49] LABS: Glucose, Whole Blood 210 mg/dL (60-115)
[2022-09-12] MEDS: Insulin Lispro 100 UNIT/ML 3 ML VIAL SUBCUT (21:36)
[2022-09-12] MEDS: 0.9 % Sodium Chloride Flush 3 ML SYRINGE IVFLUSH (21:44)
[2022-09-13] VITALS (8 sets, daily range): BP systolic 111–138; BP diastolic 59–83; PULSE 87–114; RESP 16–20; TEMP 36.1–37; O2SAT 82–99; BMI 22.5
[2022-09-13] MEDS: Acetaminophen 325 MG TABLET 650 MG PO ×2 (05:14→23:15)
[2022-09-13 06:50] LABS: MANUAL DIFF FLAG NO
[2022-09-13 06:56] LABS: Hematocrit 37.1 % (42.0-52.0); Hemoglobin 11.6 g/dl (14.0-18.0); Imm Gran Abs Auto 0.02 X10*3/uL (0.00-0.03); Imm Gran Pct Auto 0.5 % (0.0-0.4); Lymphocytes Absolute Auto 0.4 X10*3/uL (1.2-4.9); Lymphocytes Percent Auto 9.5 % (20-40); Mean Corpuscular HGB Conc 31.3 g/dl (31.0-36.0); Mean Corpuscular Hemoglobin 31.5 pg (27.0-33.0); Mean Corpuscular Volume 100.8 fL (80.0-98.0); Mean Platelet Volume 10.2 fL (9.4-12.4); Monocytes Absolute Auto 0.4 X10*3/uL (0.1-1.2); Monocytes Percent Auto 10.6 % (2-11); Neutrophils Percent Auto 79.4 % (45-73); Platelet Count 196 X10*3/uL (160-400); Red Blood Count 3.68 X10*6/uL (4.60-5.80); Red Cell Distribution Width 14.6 % (11.0-16.0); White Blood Count 3.8 X10*3/uL (4.8-10.8)
[2022-09-13 07:21] LABS: Glucose, Whole Blood 166 mg/dL (60-115)
[2022-09-13 07:43] LABS: Anion Gap 13 (12-20); Blood Urea Nitrogen 26 mg/dL (9-16); Calcium 9.1 mg/dL (8.4-10.2); Carbon Dioxide 22 mmol/L (22-29); Chloride 104 mmol/L (96-108); Creatinine Clr Calc Pharmacy 36.2; Estimated Glomerular Filt Rate 42; Glucose Random 168 mg/dL (60-115); Potassium 4.6 mmol/L (3.3-5.1); Sodium 134 mmol/L (135-145)
[2022-09-13] MEDS: Insulin Lispro 100 UNIT/ML 3 ML VIAL SUBCUT ×4 (07:44→20:04)
[2022-09-13] MEDS: Albuterol/Iprat 2.5/0.5MG 3 ML AMPUL.NEB INHALE ×2 (07:47→19:16)
[2022-09-13] MEDS: 0.9 % Sodium Chloride Flush 3 ML SYRINGE IVFLUSH ×2 (07:47→17:04)
[2022-09-13 08:31] LABS: Magnesium 2.2 mg/dL (1.6-2.6)
[2022-09-13] MEDS: Metoprolol Succinate ER 50 MG TAB.ER.24H PO (08:33)
[2022-09-13] MEDS: Apixaban 5 MG TABLET PO ×2 (08:33→20:03)
[2022-09-13] MEDS: Furosemide 40 MG/4 ML VIAL IVPUSH ×2 (08:33→17:04)
--- NOTE | 2022-09-13 10:50 | PHA.MEDREC ---
Pharmacy Consult ? Medication Reconciliation Pharmacy has completed the medication reconciliation. SPOKE WITH PRIMARY CONTACT
--- NOTE | 2022-09-13 11:30 | HO.PM.IMPN ---
Subjective Subjective Date of Service: 09/13/22 Interval History: seem and examined this morning awake and alert. no specific complaints. feels good able to state his name. not a good historian unable to obtain full ROS but currently denying any pain Physical Exam Vital Signs: Vital Signs: Last Vital Signs Temp 96.9 F 09/13/22 11:23 Pulse 101 H 09/13/22 11:23 Resp 16 09/13/22 11:23 BP 114/78 09/13/22 11:23 Pulse Ox 93 09/13/22 11:23 O2 Del Method 09/13/22 11:23 O2 Flow Rate 2 09/13/22 04:00 BMI result Body Mass Index 22.5 Const: Other: patient is able to tell me his full name. He is disoriented to place and situation General: alert and awake Nutritional Appearance: average body habitus Orientation/consciousness: oriented to person Resp: Effort & Inspection: normal respiratory effort and not tachypneic Auscultation: rales Cardio: Rate: regular rate Heart sounds: S1 normal heart sound present and S2 normal heart sound present GI: Inspection: No distended Palpation (GI): Soft to palpation and nontender Neuro: Other: no focal deficits appreciated. following commands and moving all extremities General: oriented to person Extrem: Other: leg edema improved signifiantly, still with 1+edema Objective Data Active Medications Acetaminophen (Acetaminophen 325 Mg Tablet) 650 mg PO Q6H PRN PRN Reason: Pain, Mild (Pain Scale 1-3) Last Admin: 09/13/22 05:14 Dose: 650 mg Documented By: JALEEL Albuterol Sulfate (Albuterol Sulfate (0.083%) 2.5 Mg/3 Ml Vial.Neb) 2.5 mg INHALE TID [facility] Last Admin: 09/13/22 07:54 Dose: Not Given Documented By: DANK Non-Admin Reason: duo neb given at 0747 Albuterol/Ipratropium (Albuterol/Iprat 2.5/0.5mg 3 Ml Ampul.Neb) 3 ml INHALE RQ6H PRN PRN Reason: Shortness of Breath/Wheezing Last Admin: 09/13/22 07:47 Dose: 3 ml Documented By: DANK Apixaban (Apixaban 5 Mg Tablet) 5 mg PO BID [facility] Last Admin: 09/13/22 08:33 Dose: 5 mg Documented By: PHILIPP Dextrose (Dextrose 50 % 25 Gm/50 Ml Syringe) 25 gm IVPUSH Q15M PRN; Protocol PRN Reason: per Hypoglycemia Standing Ord. Docusate Sodium (Docusate Sodium 100 Mg Capsule) 100 mg PO DAILY PRN PRN Reason: Constipation Glucose (Glucose Gel 15 Gm Gel..Gram.) 15 gm PO Q15M PRN; Protocol PRN Reason: per Hypoglycemia Standing Ord. Ceftriaxone Sodium 1 gm/ (Sodium Chloride) 50 mls @ 100 mls/hr IV Q24H BC Doxycycline Hyclate 100 mg/ (Sodium Chloride) 250 mls @ 166.67 mls/hr IV Q12H [facility] Insulin Glargine (Insulin Glargine,Hum.Rec.Anlog 100 Unit/Ml 10 Ml Vial) 6 unit SUBCUT BEDTIME BC Insulin Human Lispro (Insulin Lispro 100 Unit/Ml 3 Ml Vial) 0 unit SUBCUT QIDACHS [facility]; Protocol Last Admin: 09/13/22 07:44 Dose: 2 unit Documented By: PHILIPP Metoprolol Succinate (Metoprolol Succinate Er 50 Mg Tab.Er.24h) 50 mg PO DAILY [facility]; Protocol Last Admin: 09/13/22 08:33 Dose: 50 mg Documented By: PHILIPP Pharmacy Consult (Consult Rx Perform Med Rec) 1 each MISCELLANE ONCE PRN PRN Reason: Consult order Sodium Chloride (0.9 % Sodium Chloride Flush 3 Ml Syringe) 3 ml IVFLUSH QSHIFT [facility] Last Admin: 09/13/22 07:47 Dose: 3 ml Documented By: PHILIPP Labs CBC & Chem 7: 09/13/22 06:23 09/13/22 06:23 Labs: Laboratory Results - last 24 hr 09/12/22 09/12/22 09/12/22 14:30 14:30 14:30 MCV 100.8 H MCH 31.9 MCHC 31.7 RDW 14.6 Plt Count 217 D MPV 9.9 Immature Gran % (Auto) 0.5 H Neut % (Auto) 65.6 Lymph % (Auto) 14.4 L [place] % (Auto) 15.5 H Eos % (Auto) 3.8 Baso % (Auto) 0.2 Lymph # (Auto) 0.6 L [place] # (Auto) 0.7 Eos # (Auto) 0.2 Baso # (Auto) 0.0 Abs Immat Gran (auto) 0.02 Absolute Neuts (auto) 2.8 Absolute Nucleated RBC 0.000 Nucleated RBC % (auto) 0.0 Anion Gap 14 Estim Creat Clear Calc 41.0 Estimated GFR 47 POC Glucose Random Glucose 162 H Lactic Acid Calcium 9.1 D Magnesium Troponin I High Sens B-Natriuretic Peptide 3021 H Urine Color Urine Appearance Urine pH Ur Specific [place] Urine Protein Urine Glucose (UA) Urine Ketones Urine Blood Urine Nitrite Ur Leukocyte Esterase Urine RBC Urine WBC Ur Squamous Epith Cells Urine Bacteria Hyaline Casts Influenza Type A (PCR) Influenza Type B (PCR) RSV RNA Qual (PCR) SARS-CoV-2 RNA (RT-PCR) 09/12/22 09/12/22 09/12/22 14:30 16:54 16:54 MCV MCH MCHC RDW Plt Count MPV Immature Gran % (Auto) Neut % (Auto) Lymph % (Auto) Terrell % (Auto) Eos % (Auto) Baso % (Auto) Lymph # (Auto) Terrell # (Auto) Eos # (Auto) Baso # (Auto) Abs Immat Gran (auto) Absolute Neuts (auto) Absolute Nucleated RBC Nucleated RBC % (auto) Anion Gap Estim Creat Clear Calc Estimated GFR POC Glucose Random Glucose Lactic Acid 1.5 Calcium Magnesium Troponin I High Sens 22.1 B-Natriuretic Peptide Urine Color Urine Appearance Urine pH Ur Specific [place] Urine Protein Urine Glucose (UA) Urine Ketones Urine Blood Urine Nitrite Ur Leukocyte Esterase Urine RBC Urine WBC Ur Squamous Epith Cells Urine Bacteria Hyaline Casts Influenza Type A (PCR) NEGATIVE Influenza Type B (PCR) NEGATIVE RSV RNA Qual (PCR) NEGATIVE SARS-CoV-2 RNA (RT-PCR) NEGATIVE 09/12/22 09/12/22 09/12/22 17:51 20:45 Unknown MCV MCH MCHC RDW Plt Count MPV Immature Gran % (Auto) Neut % (Auto) Lymph % (Auto) Terrell % (Auto) Eos % (Auto) Baso % (Auto) Lymph # (Auto) [place] # (Auto) Eos # (Auto) Baso # (Auto) Abs Immat Gran (auto) Absolute Neuts (auto) Absolute Nucleated RBC Nucleated RBC % (auto) Anion Gap Estim Creat Clear Calc Estimated GFR POC Glucose 210 H Random Glucose Lactic Acid Calcium Magnesium Troponin I High Sens 30.2 B-Natriuretic Peptide Urine Color Yellow Urine Appearance Clear Urine pH 6.0 Ur Specific [place] 1.015 Urine Protein Trace Urine Glucose (UA) Negative Urine Ketones Negative Urine Blood Large (3+) H Urine Nitrite Negative Ur Leukocyte Esterase Negative Urine RBC >20 H Urine WBC 0-5 Ur Squamous Epith Cells 0-2 Urine Bacteria None Seen Hyaline Casts 3-5 Influenza Type A (PCR) Influenza Type B (PCR) RSV RNA Qual (PCR) SARS-CoV-2 RNA (RT-PCR) 09/13/22 09/13/22 09/13/22 06:23 06:23 07:17 MCV 100.8 H MCH 31.5 MCHC 31.3 RDW 14.6 Plt Count 196 MPV 10.2 Immature Gran % (Auto) 0.5 H Neut % (Auto) 79.4 H Lymph % (Auto) 9.5 L [place] % (Auto) 10.6 Eos % (Auto) 0.0 Baso % (Auto) 0.0 Lymph # (Auto) 0.4 L [place] # (Auto) 0.4 Eos # (Auto) 0.0 Baso # (Auto) 0.0 Abs Immat Gran (auto) 0.02 Absolute Neuts (auto) 3.0 Absolute Nucleated RBC 0.000 Nucleated RBC % (auto) 0.0 Anion Gap 13 Estim Creat Clear Calc 36.2 Estimated GFR 42 POC Glucose 166 H Random Glucose 168 H Lactic Acid Calcium 9.1 Magnesium 2.2 Troponin I High Sens B-Natriuretic Peptide Urine Color Urine Appearance Urine pH Ur Specific [place] Urine Protein Urine Glucose (UA) Urine Ketones Urine Blood Urine Nitrite Ur Leukocyte Esterase Urine RBC Urine WBC Ur Squamous Epith Cells Urine Bacteria Hyaline Casts Influenza Type A (PCR) Influenza Type B (PCR) RSV RNA Qual (PCR) SARS-CoV-2 RNA (RT-PCR) Assessment and Plan (1) Pneumonia: Status: Acute Plan This is a 76 year old Polish-speaking male with history of dementia (baseline oriented to person only), PAF, HFrEF, who presented with complaints of not feeling well found to have CHF and possible pneumonia Acute respiratory failure with hypoxia Oxygen saturation 88% on room air on arrival Secondary to decompensated CHF and pneumonia on a background of lung cancer Supplemental oxygen, wean as tolerated Community-acquired pneumonia meets sepsis criteria with tachycardia, tachypnea. no leukocytosis Lactic acid wnl , blood cultures pending Continue IV ceftriaxone, doxycycline speech eval to rule out aspiration blood cultures pending Acute on chronic HF with reduced EF/Right heart failure echo from 09/01 - EF 20-25%, severely decreased right ventricular systolic function, wall motion abnormality, moderate tricuspid valve regurgitation and severe pulmonary hypertension elevated BNP, leg edema, crackles low sodium diet, follow Intake and output ekg with twave inversions v2-v4, trops flat seen by cardiology will transition back to po lasix, likely in am Hyperkalemia resolved with kayexalate CKD3 trending up but within baseline DM no longer on metformin continue lantus -SSI,POCs Alzheimer's dementia baseline oriented to self Lung cancer s/p radiation currently not pursuing active treatment Under palliative care Paroxysmal atrial fibrillation Continue amiodarone Continue Henriettais Attending dr montilla Code status-DNR/DNI Healthcare proxy-daughter, Vani Galarza [phone] Dispo - daughter says patient lives with his GF who is ill equipped to take care of him and she doesn't think he is able to return home. PT eval pending Patient requires ongoing inpatient hospitalization for management of pneumonia/IV abx Quality Stroke Does the patient have a stroke diagnosis?: No VTE Prior VTE?: No VTE Risk Level:: Medical - moderate - high VTE Device Contraindication: N/A - Device Ordered VTE Drug Contraindication: N/A - Med Ordered
[2022-09-13 11:42] LABS: Glucose, Whole Blood 182 mg/dL (60-115)
--- NOTE | 2022-09-13 12:28 | P.CONCA_ITS ---
History of Present Illness History of Present Illness Date of Service: 09/13/22 Requesting physician: Kimi Liao Chief complaint: CHF, PNA Narrative: 76 male with lung cancer, COPD, cardiomyopathy EF 20-25% and CVA who was seen recently with shortness of breath and is to heart failure. He was in AFib with RVR. Given rest cardiomyopathy and lung cancer reporting on amiodarone. His heart rates improved any eventually went home. He is now presenting with feeling generally unwell and there was some evidence of pneumonia versus heart failure on the chest x-ray. Patient is sleepy and somewhat poor historian. He is lying flat in bed. Denying any active issues currently. As mentioned has advanced cardiomyopathy as well as lung cancer. [facility] Past Medical History Medical History Asthma CAD (coronary artery disease) Cerebral infarction COPD (chronic obstructive pulmonary disease) Diabetes mellitus type 2, insulin dependent Encephalopathy GERD (gastroesophageal reflux disease) Gynecomastia Hyperlipidemia Hypertension Ischemic cardiomyopathy Right lower lobe lung mass Scrotal abscess Smoker TIA (transient ischemic attack) Tubular adenoma of colon Venous stasis dermatitis of both lower extremities Vitamin B 12 deficiency Family History Family History Son HTN (hypertension) Surgical History Surgical History History of colonoscopy History of exploratory laparotomy History of heart artery stent History of hernia repair History of hydrocelectomy History of left inguinal hernia repair History of skin graft Social History Social History Household Members: Significant Other Housing: Apartment Are you a primary medicare biller to a significant other at home: No Do you presently have visiting nurse or other home services: Yes ([employer] AND [employer]) Alcohol intake: unknown Patient Tobacco Use Status: Tobacco use Unknown Tobacco use type: Cigarette Cigarette Packs Per Day: 0.5 Cigarettes Per Day: 4 Years Smoked: unknown Smoked in Last 30 Days: No e-Cigarette/Vaping Use: Currently Using Use of substances other than those prescribed or required for medical reasons: No Substance Use Type: Marijuana Currently Displaying Signs/Symptoms of Drug Intoxication Withdrawal: No Have you been hit, kicked, punched, or otherwise hurt by someone within the past year? If so, by whom?: No Do you feel safe in your current relationship?: Yes Is there a partner from a previous relationship who is making you feel unsafe now?: No Are you made to feel afraid or neglected: No Advance Directives: Yes Advance Directives on File: Yes Advance Directives Date on File: 12/05/20 Do you have thoughts of harming others: None Do you have a plan to hurt others: No Plan Recently lost weight without trying: Unsure Nutrition Risks: No Nutritional Risk service: No Current occupational status: retired [employer] Allergies Allergy/AdvReac Type Severity Reaction Status Date / Time No Known Allergies Allergy Mild Verified 07/16/22 12:04 Active Medications: Current Medications Acetaminophen (Acetaminophen 325 Mg Tablet) 650 mg PO Q6H PRN PRN Reason: Pain, Mild (Pain Scale 1-3) Last Admin: 09/13/22 05:14 Dose: 650 mg Albuterol Sulfate (Albuterol Sulfate (0.083%) 2.5 Mg/3 Ml Vial.Neb) 2.5 mg INHALE TID [facility] Last Admin: 09/13/22 07:54 Dose: Not Given Albuterol/Ipratropium (Albuterol/Iprat 2.5/0.5mg 3 Ml Ampul.Neb) 3 ml INHALE RQ6H PRN PRN Reason: Shortness of Breath/Wheezing Last Admin: 09/13/22 07:47 Dose: 3 ml Amiodarone HCl (Amiodarone Hcl 200 Mg Tablet) 200 mg PO DAILY [facility] Apixaban (Apixaban 5 Mg Tablet) 5 mg PO BID [facility] Last Admin: 09/13/22 08:33 Dose: 5 mg Dextrose (Dextrose 50 % 25 Gm/50 Ml Syringe) 25 gm IVPUSH Q15M PRN; Protocol PRN Reason: per Hypoglycemia Standing Ord. Docusate Sodium (Docusate Sodium 100 Mg Capsule) 100 mg PO DAILY PRN PRN Reason: Constipation Glucose (Glucose Gel 15 Gm Gel..Gram.) 15 gm PO Q15M PRN; Protocol PRN Reason: per Hypoglycemia Standing Ord. Ceftriaxone Sodium 1 gm/ (Sodium Chloride) 50 mls @ 100 mls/hr IV Q24H [facility] Doxycycline Hyclate 100 mg/ (Sodium Chloride) 250 mls @ 166.67 mls/hr IV Q12H [facility] Insulin Glargine (Insulin Glargine,Hum.Rec.Anlog 100 Unit/Ml 10 Ml Vial) 6 unit SUBCUT BEDTIME [facility] Insulin Human Lispro (Insulin Lispro 100 Unit/Ml 3 Ml Vial) 0 unit SUBCUT QIDACHS [facility]; Protocol Last Admin: 09/13/22 11:56 Dose: 2 unit Metoprolol Succinate (Metoprolol Succinate Er 50 Mg Tab.Er.24h) 50 mg PO DAILY [facility]; Protocol Last Admin: 09/13/22 08:33 Dose: 50 mg Pharmacy Consult (Consult Rx Perform Med Rec) 1 each MISCELLANE ONCE PRN PRN Reason: Consult order Sodium Chloride (0.9 % Sodium Chloride Flush 3 Ml Syringe) 3 ml IVFLUSH QSHIFT [facility] Last Admin: 09/13/22 07:47 Dose: 3 ml Home Medications Medication Instructions Recorded Confirmed Last Taken Type cyanocobalamin (vitamin B-12) 1 tab PO DAILY 12/01/20 09/12/22 08/19/22 History 1,000 mcg tablet,extended release apixaban 5 mg tablet (Eliquis) 5 mg PO BID 06/12/22 09/12/22 08/19/22 History furosemide 40 mg tablet 1 tab PO BID 08/20/22 09/12/22 08/19/22 History insulin glargine 100 unit/mL (3 6 unit subcut BEDTIME 08/20/22 09/12/22 08/19/22 History mL) subcutaneous pen (Lantus Solostar U-100 Insulin) insulin lispro 100 unit/mL See Rx Instructions .Route .COMPLEX 08/20/22 09/12/22 08/19/22 History subcutaneous pen (Humalog KwikPen (U-100) Insulin) metoprolol succinate 50 mg 1 tab PO DAILY 08/20/22 09/12/22 08/19/22 History tablet,extended release 24 hr multivitamin 1 tab PO DAILY 08/20/22 09/12/22 08/19/22 History albuterol sulfate 2.5 mg/3 mL 1 amp inhalation BID 09/12/22 09/13/22 Unknown History (0.083 %) solution for nebulization amiodarone 200 mg tablet 200 mg PO DAILY 09/12/22 09/12/22 Unknown History Physical Exam 2 Vital Signs: Vital Signs: Last Vital Signs Temp 96.9 F 09/13/22 11:23 Pulse 101 H 09/13/22 11:23 Resp 16 09/13/22 11:23 BP 114/78 09/13/22 11:23 Pulse Ox 93 09/13/22 11:23 O2 Del Method 09/13/22 11:23 O2 Flow Rate 2 09/13/22 04:00 BMI result Body Mass Index 22.5 GENERAL APPEARANCE: in no acute distress. NECK: no carotid bruit, + jugular venous distention. SKIN: no suspicious lesions, warm and dry. HEART: no murmurs, irregular rate and rhythm. LUNGS: Crackles right lung base and mid. ABDOMEN: soft, nontender. EXTREMITIES: no significant edema. PERIPHERAL PULSES: equal. NEUROLOGIC: No gross deficits, AAO X 3 Objective Labs and Meds Result diagrams: 09/13/22 06:23 09/13/22 06:23 Lab results: Laboratory Results - last 24 hr 09/12/22 09/12/22 09/12/22 14:30 14:30 14:30 WBC 4.3 L RBC 3.54 L Hgb 11.3 L Hct 35.7 L MCV 100.8 H MCH 31.9 MCHC 31.7 RDW 14.6 Plt Count 217 D MPV 9.9 Immature Gran % (Auto) 0.5 H Neut % (Auto) 65.6 Lymph % (Auto) 14.4 L [place] % (Auto) 15.5 H Eos % (Auto) 3.8 Baso % (Auto) 0.2 Lymph # (Auto) 0.6 L [place] # (Auto) 0.7 Eos # (Auto) 0.2 Baso # (Auto) 0.0 Abs Immat Gran (auto) 0.02 Absolute Neuts (auto) 2.8 Absolute Nucleated RBC 0.000 Nucleated RBC % (auto) 0.0 Sodium 133 L Potassium 5.5 H Chloride 100 Carbon Dioxide 25 Anion Gap 14 BUN 23 H Creatinine 1.45 H Estim Creat Clear Calc 41.0 Estimated GFR 47 POC Glucose Random Glucose 162 H Lactic Acid Calcium 9.1 D Magnesium Troponin I High Sens B-Natriuretic Peptide 3021 H Urine Color Urine Appearance Urine pH Ur Specific [place] Urine Protein Urine Glucose (UA) Urine Ketones Urine Blood Urine Nitrite Ur Leukocyte Esterase Urine RBC Urine WBC Ur Squamous Epith Cells Urine Bacteria Hyaline Casts Influenza Type A (PCR) Influenza Type B (PCR) RSV RNA Qual (PCR) SARS-CoV-2 RNA (RT-PCR) 09/12/22 09/12/22 09/12/22 14:30 16:54 16:54 WBC RBC Hgb Hct MCV MCH MCHC RDW Plt Count MPV Immature Gran % (Auto) Neut % (Auto) Lymph % (Auto) [place] % (Auto) Eos % (Auto) Baso % (Auto) Lymph # (Auto) [place] # (Auto) Eos # (Auto) Baso # (Auto) Abs Immat Gran (auto) Absolute Neuts (auto) Absolute Nucleated RBC Nucleated RBC % (auto) Sodium Potassium Chloride Carbon Dioxide Anion Gap BUN Creatinine Estim Creat Clear Calc Estimated GFR POC Glucose Random Glucose Lactic Acid 1.5 Calcium Magnesium Troponin I High Sens 22.1 B-Natriuretic Peptide Urine Color Urine Appearance Urine pH Ur Specific [place] Urine Protein Urine Glucose (UA) Urine Ketones Urine Blood Urine Nitrite Ur Leukocyte Esterase Urine RBC Urine WBC Ur Squamous Epith Cells Urine Bacteria Hyaline Casts Influenza Type A (PCR) NEGATIVE Influenza Type B (PCR) NEGATIVE RSV RNA Qual (PCR) NEGATIVE SARS-CoV-2 RNA (RT-PCR) NEGATIVE 09/12/22 09/12/22 09/12/22 17:51 20:45 Unknown WBC RBC Hgb Hct MCV MCH MCHC RDW Plt Count MPV Immature Gran % (Auto) Neut % (Auto) Lymph % (Auto) [place] % (Auto) Eos % (Auto) Baso % (Auto) Lymph # (Auto) [place] # (Auto) Eos # (Auto) Baso # (Auto) Abs Immat Gran (auto) Absolute Neuts (auto) Absolute Nucleated RBC Nucleated RBC % (auto) Sodium Potassium Chloride Carbon Dioxide Anion Gap BUN Creatinine Estim Creat Clear Calc Estimated GFR POC Glucose 210 H Random Glucose Lactic Acid Calcium Magnesium Troponin I High Sens 30.2 B-Natriuretic Peptide Urine Color Yellow Urine Appearance Clear Urine pH 6.0 Ur Specific [place] 1.015 Urine Protein Trace Urine Glucose (UA) Negative Urine Ketones Negative Urine Blood Large (3+) H Urine Nitrite Negative Ur Leukocyte Esterase Negative Urine RBC >20 H Urine WBC 0-5 Ur Squamous Epith Cells 0-2 Urine Bacteria None Seen Hyaline Casts 3-5 Influenza Type A (PCR) Influenza Type B (PCR) RSV RNA Qual (PCR) SARS-CoV-2 RNA (RT-PCR) 09/13/22 09/13/22 09/13/22 06:23 06:23 07:17 WBC 3.8 L RBC 3.68 L Hgb 11.6 L Hct 37.1 L MCV 100.8 H MCH 31.5 MCHC 31.3 RDW 14.6 Plt Count 196 MPV 10.2 Immature Gran % (Auto) 0.5 H Neut % (Auto) 79.4 H Lymph % (Auto) 9.5 L [place] % (Auto) 10.6 Eos % (Auto) 0.0 Baso % (Auto) 0.0 Lymph # (Auto) 0.4 L [place] # (Auto) 0.4 Eos # (Auto) 0.0 Baso # (Auto) 0.0 Abs Immat Gran (auto) 0.02 Absolute Neuts (auto) 3.0 Absolute Nucleated RBC 0.000 Nucleated RBC % (auto) 0.0 Sodium 134 L Potassium 4.6 Chloride 104 Carbon Dioxide 22 Anion Gap 13 BUN 26 H Creatinine 1.62 H Estim Creat Clear Calc 36.2 Estimated GFR 42 POC Glucose 166 H Random Glucose 168 H Lactic Acid Calcium 9.1 Magnesium 2.2 Troponin I High Sens B-Natriuretic Peptide Urine Color Urine Appearance Urine pH Ur Specific [place] Urine Protein Urine Glucose (UA) Urine Ketones Urine Blood Urine Nitrite Ur Leukocyte Esterase Urine RBC Urine WBC Ur Squamous Epith Cells Urine Bacteria Hyaline Casts Influenza Type A (PCR) Influenza Type B (PCR) RSV RNA Qual (PCR) SARS-CoV-2 RNA (RT-PCR) 09/13/22 11:18 WBC RBC Hgb Hct MCV MCH MCHC RDW Plt Count MPV Immature Gran % (Auto) Neut % (Auto) Lymph % (Auto) [place] % (Auto) Eos % (Auto) Baso % (Auto) Lymph # (Auto) [place] # (Auto) Eos # (Auto) Baso # (Auto) Abs Immat Gran (auto) Absolute Neuts (auto) Absolute Nucleated RBC Nucleated RBC % (auto) Sodium Potassium Chloride Carbon Dioxide Anion Gap BUN Creatinine Estim Creat Clear Calc Estimated GFR POC Glucose 182 H Random Glucose Lactic Acid Calcium Magnesium Troponin I High Sens B-Natriuretic Peptide Urine Color Urine Appearance Urine pH Ur Specific [place] Urine Protein Urine Glucose (UA) Urine Ketones Urine Blood Urine Nitrite Ur Leukocyte Esterase Urine RBC Urine WBC Ur Squamous Epith Cells Urine Bacteria Hyaline Casts Influenza Type A (PCR) Influenza Type B (PCR) RSV RNA Qual (PCR) SARS-CoV-2 RNA (RT-PCR) Imaging Radiologist's impression: Impressions Chest X-Ray 09/12/22 15:06 IMPRESSION: Increase in bibasilar airspace disease and pleural effusions as well as more prominent airspace disease within the mid and upper right lung. Above findings may be related to multifocal pneumonia versus pulmonary edema of cardiogenic or noncardiogenic etiology. Cardiomegaly. Assessment and Plan (1) Afib: Qualifiers: Atrial fibrillation type: longstanding persistent Qualified Code(s): I48.11 - Longstanding persistent atrial fibrillation Status: Acute (2) Congestive heart failure: Status: Acute Plan 76 male with CMP and lung cancer. Present image feeling generally unwell. There is some concern for right lung. Exam is showing right lung crackles only. Laying flat in bed. Chest x-ray findings are suspicious for congestive heart failure in addition to some infiltrate. Continue IV Lasix for now. Agree with antibiotics for now. Goals of care discussion and palliative care input. Thank you for allowing me to participate in the care of your patient. Please feel free to contact me if you have any questions. Procedures Date of Service Date of Service: 09/13/22
--- NOTE | 2022-09-13 14:09 | MHC.CM.PN ---
Patient lives w/girlfriend. Owns walker and WC. Does not drive; son or daughter drive him to where he needs to go. Has active in-home VNA; family unable to recall name of VNA at this time, they will [place] back around w/CM when known. Plan is home w/return to VNA services via family transport.
[2022-09-13 16:32] LABS: Glucose, Whole Blood 163 mg/dL (60-115)
[2022-09-13] MEDS: Doxycycline Hyclate 100 MG in 0.9 % Sodium Chloride 250 ML 166.67 MG IV (17:01)
--- NOTE | 2022-09-13 19:42 | PC.NURSE ---
Patient pull out saxena catheter at 17:45, saxena catheter intact after removal. No sings of bleeding. patient voided immediately after. External catheter put in place. Will continue to monitor.
[2022-09-13 20:04] LABS: Glucose, Whole Blood 197 mg/dL (60-115)
[2022-09-13] MEDS: Insulin Glargine,Hum.rec.anlog 100 UNIT/ML 10 ML VIAL 6 UNIT SUBCUT (20:05)
[2022-09-13] MEDS: cefTRIAXone sodium 1 GM in 0.9 % Sodium Chloride 50 ML IV (20:08)
[2022-09-14] VITALS (22 sets, daily range): BP systolic 90–117; BP diastolic 44–83; PULSE 63–117; RESP 8–25; TEMP 35.6–37.1; O2SAT 9–100; BMI 22.1
--- NOTE | 2022-09-14 | ECG_ITS ---
Test Reason : chest pain Blood Pressure : / mmHG Vent. Rate : 102 BPM Atrial Rate : 000 BPM P-R Int : 000 ms QRS Dur : 168 ms QT Int : 420 ms P-R-T Axes : 000 -56 116 degrees QTc Int : 547 ms Atrial fibrillation with rapid ventricular response Left axis deviation Right bundle branch block Lateral infarct , age undetermined Inferior infarct (cited on or before 23-MAR-2005) Abnormal ECG When compared with ECG of 12-SEP-2022 15:09, No significant change was found Referred By: Abner Barrett Electronically Signed By:TYLER GREENE MD
[2022-09-14] MEDS: 0.9 % Sodium Chloride Flush 3 ML SYRINGE IVFLUSH ×3 (02:16→17:38)
[2022-09-14] MEDS: traMADoL HCL 50 MG TABLET 25 MG PO (02:16)
[2022-09-14] MEDS: Doxycycline Hyclate 100 MG in 0.9 % Sodium Chloride 250 ML 250 MG IV ×2 (02:23→15:20)
[2022-09-14 03:03] LABS: Troponin-I High Sensitivity 43.5 ng/L (<3.5-35.0)
[2022-09-14] MEDS: Furosemide 40 MG/4 ML VIAL IVPUSH ×2 (05:10→17:32)
--- NOTE | 2022-09-14 07:08 | PC.NURSE ---
0150:Patient complaining of 8/10 chest pain vitals BP 116/83, RR16 HR 104 , 91% on 1L NC EKG done; notified Dr Wang , ordered Tramadol 25mg , troponins, Patient showed some signs of relief, although remained restless throughout the night. Notified maintenance service supervisor patient needs a sitter in the room to redirect.
[2022-09-14] MEDS: Albuterol Sulfate (0.083%) 2.5 MG/3 ML VIAL.NEB INHALE (07:32)
[2022-09-14 07:37] LABS: Glucose, Whole Blood 114 mg/dL (60-115)
[2022-09-14 07:57] LABS: B Type Natriuretic Peptide 6364 pg/mL (<100)
--- NOTE | 2022-09-14 08:12 | ECG_ITS ---
Test Reason : wide complex Blood Pressure : / mmHG Vent. Rate : 125 BPM Atrial Rate : 125 BPM P-R Int : 272 ms QRS Dur : 208 ms QT Int : 448 ms P-R-T Axes : 000 236 011 degrees QTc Int : 646 ms Ventricular tachycardia (ventricular or supraventricular with aberration) Abnormal ECG When compared with ECG of 14-SEP-2022 01:46, VT has replaced Atrial fibrillation QRS duration has increased Referred By: Abner Barrett Electronically Signed By:TYLER GREENE MD
[2022-09-14 08:18] LABS: Glucose, Whole Blood 127 mg/dL (60-115)
--- NOTE | 2022-09-14 08:55 | P.PNIM_ITS ---
Subjective Subjective Date of Service: 09/14/22 Interval History: awake and alert [facility] Physical Exam Vital Signs: Vital Signs: Last Vital Signs Temp 97.5 F 09/14/22 07:22 Pulse 117 H 09/14/22 08:00 Resp 16 09/14/22 08:00 BP 117/81 09/14/22 08:00 Pulse Ox 100 09/14/22 08:00 O2 Del Method 09/14/22 08:00 O2 Flow Rate 1 09/14/22 04:04 FiO2 100 09/14/22 08:00 Oxygen Flow Rate 3 09/14/22 08:00 BMI result Body Mass Index 22.1 Appearing in no acute distress lung sounds are clear to auscultation heart regular rate rhythm, clear S1, S2 positive bowel sounds, abdomen is soft, nontender neuro patient is alert x3, no focal deficits Objective Data Active Medications Acetaminophen (Acetaminophen 325 Mg Tablet) 650 mg PO Q6H PRN PRN Reason: Pain, Mild (Pain Scale 1-3) Last Admin: 09/13/22 23:15 Dose: 650 mg Documented By: KELSEY Albuterol Sulfate (Albuterol Sulfate (0.083%) 2.5 Mg/3 Ml Vial.Neb) 2.5 mg INHALE TID [facility] Last Admin: 09/14/22 07:32 Dose: 2.5 mg Documented By: ORTIZ Albuterol/Ipratropium (Albuterol/Iprat 2.5/0.5mg 3 Ml Ampul.Neb) 3 ml INHALE RQ6H PRN PRN Reason: Shortness of Breath/Wheezing Last Admin: 09/13/22 19:16 Dose: 3 ml Documented By: HOLDEN Amiodarone HCl (Amiodarone Hcl 200 Mg Tablet) 200 mg PO DAILY [facility] Apixaban (Apixaban 5 Mg Tablet) 5 mg PO BID [facility] Last Admin: 09/13/22 20:03 Dose: 5 mg Documented By: KELSEY Dextrose (Dextrose 50 % 25 Gm/50 Ml Syringe) 25 gm IVPUSH Q15M PRN; Protocol PRN Reason: per Hypoglycemia Standing Ord. Docusate Sodium (Docusate Sodium 100 Mg Capsule) 100 mg PO DAILY PRN PRN Reason: Constipation Furosemide (Furosemide 40 Mg/4 Ml Vial) 40 mg IVPUSH Q12H BC; Protocol Last Admin: 09/14/22 05:10 Dose: 40 mg Documented By: KELSEY Glucose (Glucose Gel 15 Gm Gel..Gram.) 15 gm PO Q15M PRN; Protocol PRN Reason: per Hypoglycemia Standing Ord. Ceftriaxone Sodium 1 gm/ (Sodium Chloride) 50 mls @ 100 mls/hr IV Q24H [facility] Last Infusion: 09/13/22 20:41 Dose: 0 mls/hr Documented By: KELSEY Doxycycline Hyclate 100 mg/ (Sodium Chloride) 250 mls @ 166.67 mls/hr IV Q12H [facility] Last Infusion: 09/14/22 04:01 Dose: 0 mls/hr Documented By: KELSEY Amiodarone HCl 900 mg/ Sodium (Chloride) 518 mls @ 34.533 mls/hr IVCONT .Q15H1M [facility]; Protocol Insulin Glargine (Insulin Glargine,Hum.Rec.Anlog 100 Unit/Ml 10 Ml Vial) 6 unit SUBCUT BEDTIME [facility] Last Admin: 09/13/22 20:05 Dose: 6 unit Documented By: KELSEY Insulin Human Lispro (Insulin Lispro 100 Unit/Ml 3 Ml Vial) 0 unit SUBCUT QIDACHS [facility]; Protocol Last Admin: 09/14/22 07:40 Dose: Not Given Documented By: ALAINA Non-Admin Reason: No Insulin Coverage Metoprolol Succinate (Metoprolol Succinate Er 50 Mg Tab.Er.24h) 50 mg PO DAILY [facility]; Protocol Last Admin: 09/13/22 08:33 Dose: 50 mg Documented By: PHILIPP Pharmacy Consult (Consult Rx Perform Med Rec) 1 each MISCELLANE ONCE PRN PRN Reason: Consult order Sodium Chloride (0.9 % Sodium Chloride Flush 3 Ml Syringe) 3 ml IVFLUSH QSHIFT [facility] Last Admin: 09/14/22 02:16 Dose: 3 ml Documented By: KELSEY Labs CBC & Chem 7: 09/13/22 06:23 09/14/22 12:00 Labs: Laboratory Results - last 24 hr 09/13/22 09/13/22 09/13/22 11:18 16:30 19:49 POC Glucose 182 H 163 H 197 H Troponin I High Sens B-Natriuretic Peptide 09/14/22 09/14/22 09/14/22 02:19 07:10 07:21 POC Glucose 114 Troponin I High Sens 43.5 H D B-Natriuretic Peptide 6364 H 09/14/22 08:07 POC Glucose 127 H Troponin I High Sens B-Natriuretic Peptide Microbiology Microbiology Results: Microbiology 09/12/22 16:54 Blood Culture - Preliminary Blood - Venous No growth after 24 hours. 09/12/22 16:54 Blood Culture - Preliminary Blood - Venous No growth after 24 hours. Assessment and Plan (1) Pneumonia: Status: Acute Plan This is a 76 year old Divehi-speaking male with history of dementia (baseline oriented to person only), PAF, HFrEF, who presented with complaints of not feeling well found to have CHF and possible pneumonia Ventricular tachycardia Rapid response called at approximately 0815 Rate in 120s Patient already on amiodarone Discussed with patient's healthcare proxy, patient is DNR/DNI, plan for hospice at home Discussed with Cardiology okay to try amiodarone 150 mg, if it does not work then cardiovert s/p tx to ICU for cardioversion, now back to floor, SR with 1st degree block in the 70's continue bb and amio as per cardiology Acute respiratory failure with hypoxia. Resolved s/p Oxygen saturation 88% on room air on arrival Secondary to decompensated CHF and pneumonia on a background of lung cancer Supplemental oxygen, wean as tolerated Community-acquired pneumonia meets sepsis criteria with tachycardia, tachypnea. no leukocytosis Lactic acid wnl , blood cultures pending Continue IV ceftriaxone, doxycycline speech eval to rule out aspiration blood cultures neg x 24hrs Acute on chronic HF with reduced EF/Right heart failure echo from 09/01 - EF 20-25%, severely decreased right ventricular systolic function, wall motion abnormality, moderate tricuspid valve regurgitation and severe pulmonary hypertension elevated BNP, leg edema, crackles low sodium diet, follow Intake and output ekg with twave inversions v2-v4, trops flat seen by cardiology will transition back to po lasix, likely in am Hyperkalemia resolved with kayexalate CKD3 trending up but within baseline DM continue lantus SSI,POCs Alzheimer's dementia baseline oriented to self Lung cancer s/p radiation currently not pursuing active treatment Under palliative care, family wants to transition to hospice Paroxysmal atrial fibrillation hold amiodarone for ow while giving IV bolus Continue Yonis Attending Dr. Santos Code status-DNR/DNI Healthcare proxy-daughter, Vani Galarza [phone] Dispo - daughter says patient lives with his GF who is ill equipped to take care of him and she doesn't think he is able to return home. PT eval pending Patient requires ongoing inpatient hospitalization for management of pneumonia /IV abx Quality Stroke Does the patient have a stroke diagnosis?: No VTE Prior VTE?: No VTE Risk Level:: Medical - moderate - high VTE Device Contraindication: N/A - Device Ordered VTE Drug Contraindication: N/A - Med Ordered
--- NOTE | 2022-09-14 09:27 | PM.PNCARD ---
Subjective Subjective Date of Service: 09/14/22 Principal diagnosis: Wide complex tachycardia Interval history: Lb following up on Kane and history obtained with help of a certified manager implementation at bedside and also talking to the hospitalist team. Also spoke to the nursing team. Patient was admitted altered mental status and was noted to have pneumonia and mild heart failure with has severe ischemic cardiomyopathy with persistent atrial flutter/fibrillation. On p.o. amiodarone as well as Eliquis. Patient has prior history of dementia and has healthcare proxy his stepdaughter Ute who makes decisions for him. Patient this morning went into a wide complex tachycardia at about 120-125 beats per minute. Has been hemodynamically stable. Reviewing the strip he went from a narrow complex irregular heartbeat to avoid complex regular heartbeat with a QRS duration of 205 milliseconds consistent with what appears to be ventricular tachycardia. This is slow ventricular tachycardia is hemodynamically stable. Rapid response was called but then that patient was not having symptoms and hemodynamically stable it was called off. Patient on questioning denies any palpitations. Initially said he was dizzy but then subsequently recanted and said that he is not dizzy. Denies any chest pain or shortness of breath. His blood pressure is 110/60. Review of Systems Review of Systems Yes Unobtainable due to mental status Physical Exam Vital Signs: Last Vital Signs Temp 97.5 F 09/14/22 07:22 Pulse 117 H 09/14/22 08:00 Resp 16 09/14/22 08:00 BP 117/81 09/14/22 08:00 Pulse Ox 100 09/14/22 08:00 O2 Del Method 09/14/22 08:00 O2 Flow Rate 1 09/14/22 04:04 FiO2 100 09/14/22 08:00 Oxygen Flow Rate 3 09/14/22 08:00 BMI result Body Mass Index 22.1 Const General: cooperative, no acute distress, alert and awake Nutritional Appearance: cachectic and thin Orientation/consciousness: oriented to place Neck Neck: Yes trachea midline, Yes supple and Yes no JVD Resp Effort & Inspection: decreased respiratory effort Auscultation: diminished lung sounds Cardio Rate: tachycardic Rhythm: regular rhythm Heart sounds: S1 normal heart sound present, S2 normal heart sound present, no click, no gallops, no murmurs and no rubs GI Auscultation: normal bowel sounds Neuro General: oriented to place and no focal motor deficits Extrem General: Yes no clubbing, cyanosis or edema Objective Labs and Meds Result diagrams: 09/13/22 06:23 09/13/22 06:23 Lab results: Laboratory Results - last 24 hr 09/13/22 09/13/22 09/13/22 11:18 16:30 19:49 POC Glucose 182 H 163 H 197 H Troponin I High Sens B-Natriuretic Peptide 09/14/22 09/14/22 09/14/22 02:19 07:10 07:21 POC Glucose 114 Troponin I High Sens 43.5 H D B-Natriuretic Peptide 6364 H 09/14/22 08:07 POC Glucose 127 H Troponin I High Sens B-Natriuretic Peptide Progress Note: A&P Assessment and plan (1) Ventricular tachycardia: Status: Acute Assessment and Plan: Patient wide complex tachycardia which change in QRS morphology as well as regular rise a hernandez of QRS complex with underlying severe ischemic cardiomyopathy, highly likely this represents sustained but surprisingly hemodynamically tolerated ventricular tachycardia. Patient appears alert at this point time. Discussed the management with patient who is not able to make his own decisions as per the chart due to his cognitive deficits and his stepdaughter Ute makes decisions for him. Discussed with her about his condition. Patient has been made DNR DNI and the family wishes no aggressive measures. We then further discussed about his condition and that he may not correct with medications. He already on p.o. amiodarone. Will boosted with IV amiodarone 150 mg x 2 doses to see if this would reverted back into normal rhythm and/or his baseline rhythm is atrial flutter fibrillation. If he does not I discussed about potentially doing synchronized cardioversion. Initially she was hesitant but after describing the procedure she says if that is what is needed she would agree to it. She is heading to the hospital with her brother to see Kane. Will further discuss with at that point in time. Did discuss the care with his primary team as well as ICU attending Dr. Chapman as this procedure will need to be done in the ICU setting. Other option is to start him on IV lidocaine which will also need to be done in ICU setting. Overall prognosis is guarded, family is aware of this (2) Ischemic cardiomyopathy: Status: Acute Assessment and Plan: Patient with severe ischemic cardiomyopathy. Currently on metoprolol for neurohormonal modulation. Not on renin angiotensin antagonist probably due to renal insufficiency, unclear. Once he is out of this arrhythmia and if is renal function remained stable may need to talk to Nephrology about starting on renin angiotensin inhibitor therapy or may started on afterload reduction with hydralazine. (3) Afib: Status: Acute Assessment and Plan: Persistent atrial flutter/fibrillation, admitted again with being on amiodarone and Eliquis. Amiodarone was not holding his rhythm at this point time. Continue Eliquis. (4) Congestive heart failure: Status: Acute Assessment and Plan: Initial admission with possible congestive heart failure. Clinically does appear to be in overt heart failure. Currently receiving Lasix 40 mg IV b.i.d.. Continue the same. Continue supportive care. Overall prognosis is guarded given his multiple medical problems. Greater than 60 minutes were spent in overall managing his care Plan Plan discussed with Charlene Yo. Time Spent With Patient Time: Total time spent is greater than 50% in coordination of care (as documented) at patient's floor/unit and/or counseling patient: Progress Note: Quality Stroke Does the patient have a stroke diagnosis?: No Procedures Date of Service Date of Service: 09/14/22
[2022-09-14] MEDS: Amiodarone/Dextrose 150 MG/100 ML PLAST..BAG 600 MG IV (10:10)
[2022-09-14] MEDS: Apixaban 5 MG TABLET PO ×2 (10:10→19:53)
[2022-09-14 11:41] LABS: Glucose, Whole Blood 104 mg/dL (60-115)
[2022-09-14] MEDS: propofoL 200 MG/20 ML VIAL 25 MG IVPUSH (12:55)
[2022-09-14 12:57] LABS: Blood Urea Nitrogen 46 mg/dL (9-16); Calcium 9.4 mg/dL (8.4-10.2); Creatinine Clr Calc Pharmacy 22.6; Estimated Glomerular Filt Rate 24; Glucose Random 84 mg/dL (60-115)
--- NOTE | 2022-09-14 13:02 | ECG_ITS ---
Test Reason : POST CARDIOVERSION Blood Pressure : / mmHG Vent. Rate : 064 BPM Atrial Rate : 064 BPM P-R Int : 252 ms QRS Dur : 182 ms QT Int : 548 ms P-R-T Axes : 049 -52 115 degrees QTc Int : 565 ms Sinus rhythm with 1st degree A-V block Left axis deviation Non-specific intra-ventricular conduction block Minimal voltage criteria for LVH, may be normal variant ( [place] product ) Lateral infarct , age undetermined Inferior infarct (cited on or before 23-MAR-2005) T wave abnormality, consider anterior ischemia Abnormal ECG When compared with ECG of 14-SEP-2022 08:17, Vent. rate has decreased BY 61 BPM Normal sinus rhythm has replaced Ventricular tachycardia (ventricular or supraventricular with aberration) Referred By: Denys Moreno Electronically Signed By:DENYS MORENO MD
--- NOTE | 2022-09-14 13:07 | P.PNCAR_ITS ---
Cardioversion Procedure Note Cardioversion Date of Procedure: Today Ordering Provider: Myself Performing Provider: Myself Indication for Procedure: Sustained ventricular tachycardia with soft blood pressure Pre-Op Diagnosis: Sustained ventricular tachycardia Post-Op Diagnosis: Sinus rhythm with PACs Performed with Transesophageal Echo: No History: See my note from today Consent: Verbal and Written consent was obtained from the son before starting. The son was made aware of the risk of synchronized cardioversion including development of cardiac arrest and inability to perform resuscitation. He understood and agreed Procedure: After consent obtained, defib pads were attached at the apex and the sternal region and the patient was sedated by the ICU team. Once adequate sedation achieved, patient was delivered 200 joules of biphasic synchronized energy. Complications: Brief transient ST elevation Impression: Successful conversion to sinus rhythm Recommendations: 1. 12 lead EKG 2. Start mexiletine 150 mg q.8 hours to prevent recurrent scar based ventricular tachycardia, patient already on amiodarone therapy to prevent development of s ustained ventricular tachycardia again. 3. Continue supportive care 4. Patient's son was made aware of the findings and they are thinking of pursuing palliative care.
--- NOTE | 2022-09-14 13:10 | W.PM.CCCN ---
History of Present Illness Data of Consult Service Date: 09/14/22 Requesting physician: Denys Moreno Primary Care Provider: Ludin Anderson MD [facility] Reason for consult: Sustained VT I was asked by Dr. Moreno to assist with cardioversion for Mr. Block. Briefly, the patient is a 76 yo M with PMHx of dementia, lung cancer, CVA, Afib w RVR, HTN, DM, CAD, ischemic CMOP w EF 20%, COPD.? He?s on oral amiodarone and Eliquis. Admitted [facility] on Sep 12 with pneumonia and CHF.? Has DNR, DNI status.? This morning went into a wide complex tachycardia at about 120-125 beats per minute.? Has been hemodynamically stable.? EKG showed VT.? No chest pain or shortness of breath.? BP 110/60.? Dr. Moreno asked to bring him down to ICU for cardioversion. On exam, the patient is breathing easy.? Doesn?t talk except mumbles a word or two in resp to simple questions, w vigorous prompting.? SpO2 96% on room air.? RR about 18-20.? HR 114, regular, Vtach.? P 98/62.? Afebrile.? He has 3-4 cm JVD at 10?.? Chest CTA.? Can?t hear heart tones.? There are no murmur or gallops.? Abdomen is benign.? He has no edema. Chemistries from this morning show sodium 143 potassium 6.3 (yesterday is 4.6) bicarb 15 BUN/creatinine 46/2.5 (yesterday was 26/1.6). IMPRESSION: 1. Sustained VT. 2. Dementia 3. Ischemic cardiomyopathy 4. MATHEW 5. Hyperkalemia (which may be playing a role in the jonah of 50 of his VT). PLAN: 1. Cardioversion under propofol sedation.? Consent was obtained from the patient's son. 2. Treat hyperkalemia. 3. Workup and treatment of acute kidney injury. FOLLOW-UP:? The patient had no IV access.? After about half an hour of trying, we obtained access via an 18 gauge by 1-3/4 inch angio in the left internal jugular vein. ?He was monitored fully, including end-tidal CO2.? He was maintained on room air for the procedure.? I gave the patient 25 mg propofol, resulting in diminished consciousness.? He was given [address] More[address], resulting in conversion to sinus rhythm. The patient woke up ultimately and was breathing well, with a sat in the high 90s on room air.? He tolerated the procedure well with no complications. The patient is stable for transfer back to [facility].? The above was all discussed with Charlene Yo. [facility] Past Medical History Medical History Asthma CAD (coronary artery disease) Cerebral infarction COPD (chronic obstructive pulmonary disease) Diabetes mellitus type 2, insulin dependent Encephalopathy GERD (gastroesophageal reflux disease) Gynecomastia Hyperlipidemia Hypertension Ischemic cardiomyopathy Right lower lobe lung mass Scrotal abscess Smoker TIA (transient ischemic attack) Tubular adenoma of colon Venous stasis dermatitis of both lower extremities Vitamin B 12 deficiency Family History Family History Son HTN (hypertension) Surgical History Surgical History History of colonoscopy History of exploratory laparotomy History of heart artery stent History of hernia repair History of hydrocelectomy History of left inguinal hernia repair History of skin graft Social History Social History Household Members: Significant Other Housing: Apartment Are you a primary home care scheduler to a significant other at home: No Do you presently have visiting nurse or other home services: Yes ([facility] AND [employer]OL COORDINATOR) Alcohol intake: unknown Patient Tobacco Use Status: Tobacco use Unknown Tobacco use type: Cigarette Cigarette Packs Per Day: 0.5 Cigarettes Per Day: 4 Years Smoked: unknown Smoked in Last 30 Days: No e-Cigarette/Vaping Use: Currently Using Use of substances other than those prescribed or required for medical reasons: No Substance Use Type: Marijuana Currently Displaying Signs/Symptoms of Drug Intoxication Withdrawal: No Have you been hit, kicked, punched, or otherwise hurt by someone within the past year? If so, by whom?: No Do you feel safe in your current relationship?: Yes Is there a partner from a previous relationship who is making you feel unsafe now?: No Are you made to feel afraid or neglected: No Advance Directives: Yes Advance Directives on File: Yes Advance Directives Date on File: 12/05/20 Do you have thoughts of harming others: None Do you have a plan to hurt others: No Plan Recently lost weight without trying: Unsure Nutrition Risks: No Nutritional Risk service: No Current occupational status: retired Meds Allergies Allergy/AdvReac Type Severity Reaction Status Date / Time No Known Allergies Allergy Mild Verified 07/16/22 12:04 Active Medications: Current Medications Acetaminophen (Acetaminophen 325 Mg Tablet) 650 mg PO Q6H PRN PRN Reason: Pain, Mild (Pain Scale 1-3) Last Admin: 09/13/22 23:15 Dose: 650 mg Albuterol Sulfate (Albuterol Sulfate (0.083%) 2.5 Mg/3 Ml Vial.Neb) 2.5 mg INHALE TID [facility] Last Admin: 09/14/22 07:32 Dose: 2.5 mg Albuterol/Ipratropium (Albuterol/Iprat 2.5/0.5mg 3 Ml Ampul.Neb) 3 ml INHALE RQ6H PRN PRN Reason: Shortness of Breath/Wheezing Last Admin: 09/13/22 19:16 Dose: 3 ml Amiodarone HCl (Amiodarone Hcl 200 Mg Tablet) 200 mg PO DAILY [facility] Last Admin: 09/14/22 10:15 Dose: Not Given Apixaban (Apixaban 5 Mg Tablet) 5 mg PO BID [facility] Last Admin: 09/14/22 10:10 Dose: 5 mg Dextrose (Dextrose 50 % 25 Gm/50 Ml Syringe) 25 gm IVPUSH Q15M PRN; Protocol PRN Reason: per Hypoglycemia Standing Ord. Docusate Sodium (Docusate Sodium 100 Mg Capsule) 100 mg PO DAILY PRN PRN Reason: Constipation Furosemide (Furosemide 40 Mg/4 Ml Vial) 40 mg IVPUSH Q12H [facility]; Protocol Last Admin: 09/14/22 05:10 Dose: 40 mg Glucose (Glucose Gel 15 Gm Gel..Gram.) 15 gm PO Q15M PRN; Protocol PRN Reason: per Hypoglycemia Standing Ord. Ceftriaxone Sodium 1 gm/ (Sodium Chloride) 50 mls @ 100 mls/hr IV Q24H [facility] Last Infusion: 09/13/22 20:41 Dose: Infused Doxycycline Hyclate 100 mg/ (Sodium Chloride) 250 mls @ 166.67 mls/hr IV Q12H [facility] Last Infusion: 09/14/22 04:01 Dose: Infused Insulin Glargine (Insulin Glargine,Hum.Rec.Anlog 100 Unit/Ml 10 Ml Vial) 6 unit SUBCUT BEDTIME [facility] Last Admin: 09/13/22 20:05 Dose: 6 unit Insulin Human Lispro (Insulin Lispro 100 Unit/Ml 3 Ml Vial) 0 unit SUBCUT QIDACHS [facility]; Protocol Last Admin: 09/14/22 11:44 Dose: Not Given Metoprolol Succinate (Metoprolol Succinate Er 50 Mg Tab.Er.24h) 50 mg PO DAILY [facility]; Protocol Last Admin: 09/14/22 10:15 Dose: Not Given Mexiletine HCl (Mexiletine Hcl 150 Mg Capsule) 150 mg PO Q8H [facility] Pharmacy Consult (Consult Rx Perform Med Rec) 1 each MISCELLANE ONCE PRN PRN Reason: Consult order Sodium Chloride (0.9 % Sodium Chloride Flush 3 Ml Syringe) 3 ml IVFLUSH QSHIFT [facility] Last Admin: 09/14/22 10:12 Dose: 3 ml Home Medications Medication Instructions Recorded Confirmed Last Taken Type cyanocobalamin (vitamin B-12) 1 tab PO DAILY 12/01/20 09/12/22 08/19/22 History 1,000 mcg tablet,extended release apixaban 5 mg tablet (Eliquis) 5 mg PO BID 06/12/22 09/12/22 08/19/22 History furosemide 40 mg tablet 1 tab PO BID 08/20/22 09/12/22 08/19/22 History insulin glargine 100 unit/mL (3 6 unit subcut BEDTIME 08/20/22 09/12/22 08/19/22 History mL) subcutaneous pen (Lantus Solostar U-100 Insulin) insulin lispro 100 unit/mL See Rx Instructions .Route .COMPLEX 08/20/22 09/12/22 08/19/22 History subcutaneous pen (Humalog KwikPen (U-100) Insulin) metoprolol succinate 50 mg 1 tab PO DAILY 08/20/22 09/12/22 08/19/22 History tablet,extended release 24 hr multivitamin 1 tab PO DAILY 08/20/22 09/12/22 08/19/22 History albuterol sulfate 2.5 mg/3 mL 1 amp inhalation BID 09/12/22 09/13/22 Unknown History (0.083 %) solution for nebulization amiodarone 200 mg tablet 200 mg PO DAILY 09/12/22 09/12/22 Unknown History Physical Exam Vital Signs: Vital Signs: Last Vital Signs Temp 97.5 F 09/14/22 07:22 Pulse 114 H 09/14/22 12:38 Resp 11 L 09/14/22 12:38 BP 92/55 L 09/14/22 12:38 Pulse Ox 95 09/14/22 12:38 O2 Del Method Mechanical Ventil ation 09/14/22 12:00 O2 Flow Rate 3 09/14/22 12:00 FiO2 100 09/14/22 08:00 Oxygen Flow Rate 3 09/14/22 12:38 BMI result Body Mass Index 22.1 Results Labs CBC & Chem 7: 09/13/22 06:23 09/14/22 12:00 Labs: BMP 09/14/22 12:00 BUN 46 H Creatinine 2.56 H Calcium 9.4 Microbiology Microbiology Results: Microbiology 09/12/22 16:54 Blood - Venous Blood Culture - Preliminary No growth after 24 hours. 09/12/22 16:54 Blood - Venous Blood Culture - Preliminary No growth after 24 hours.
[2022-09-14 13:11] LABS: Anion Gap 30 (12-20); Carbon Dioxide 15 mmol/L (22-29); Chloride 104 mmol/L (96-108); Potassium 6.3 mmol/L (3.3-5.1); Sodium 143 mmol/L (135-145)
--- NOTE | 2022-09-14 13:48 | MHC.SLORD ---
Speech Language Pathology Order Status: Received request for Clinical Swallow eval. Pt is NPO today for surgical procedure. Will re-attempt eval 09/15.
--- NOTE | 2022-09-14 14:30 | MHC.PIE ---
Shift eval - Patient came down to ICU at 1050am for cardioversion. Son signed consent with Dr Moreno & Dr Chapman. Patient cooperative with care. HR 112-124, wide complex tachycardia. [employer]ER this morning for rhythm & mental status. Issue with IV access - this RN & all RESPIRATORY SCIENTIST's & MD worked on obtaining access. Dr Chapman inserted a 22g right wrist & a 18g to the left EJ. Once IV access obtained, procedure done. Moderate sedation done with patient for cardioversion - 25mg propofol given by Dr Chapman at 1255, patient cardioverted at [address] Moreno. Rhythm converted to SR, first deg AV block & BBB. HR 60's to 70's. Patient tolerated procedure - vitals remained stable, on 3 liters nasal cannula for short time. Patient aldrette score back to baseline after procedure. Patient bathed & repositioned post procedure. Order to transfer back to C 1 hour post procedure. Patient brought up to [facility] at 1420, bedside report done with Mary HOUSER.
--- NOTE | 2022-09-14 15:33 | PC.NURSE ---
Rapid response was called for pt at 08:00 due to the patient being in V-tach on the monitor. He was hemodynamically stable, alert and oriented/ asymptomatic. an amioderone infusion was ordered and the patient was sent to the ICU for closer monitoring
[2022-09-14 16:35] LABS: Glucose, Whole Blood 82 mg/dL (60-115)
[2022-09-14] MEDS: cefTRIAXone sodium 1 GM in 0.9 % Sodium Chloride 50 ML IV (17:28)
[2022-09-14 19:48] LABS: Glucose, Whole Blood 92 mg/dL (60-115)
--- NOTE | 2022-09-15 | ECG_ITS ---
Test Reason : bradycardia Blood Pressure : / mmHG Vent. Rate : 039 BPM Atrial Rate : 039 BPM P-R Int : 310 ms QRS Dur : 196 ms QT Int : 756 ms P-R-T Axes : 022 -45 -04 degrees QTc Int : 608 ms Normal sinus rhythm with 2:1 second degree AV block Left axis deviation Non-specific intra-ventricular conduction block Minimal voltage criteria for LVH, may be normal variant ( Jacek product ) Inferior infarct (cited on or before 14-SEP-2022) T wave abnormality, consider anterior ischemia Abnormal ECG When compared with ECG of 14-SEP-2022 13:03, Second degree AV block is now present Criteria for Lateral infarct are no longer Present T wave inversion now evident in Inferior leads T wave inversion no longer evident in Lateral leads Referred By: Sai Wang Electronically Signed By:TYLER GREENE MD
[2022-09-15] MEDS: 0.9 % Sodium Chloride Flush 3 ML SYRINGE IVFLUSH ×3 (01:05→14:47)
[2022-09-15 03:48] VITALS: BP 115/55; PULSE 41; RESP 20; TEMP 36.4; O2SAT 95
[2022-09-15] MEDS: Furosemide 40 MG/4 ML VIAL IVPUSH (04:22)
[2022-09-15] MEDS: Doxycycline Hyclate 100 MG in 0.9 % Sodium Chloride 250 ML 250 MG IV (04:23)
[2022-09-15 06:00] VITALS: BMI 21.6
[2022-09-15 07:27] VITALS: BP 98/62; PULSE 39; RESP 18; TEMP 36.1; O2SAT 91
[2022-09-15 07:37] LABS: Glucose, Whole Blood 45 mg/dL (60-115)
[2022-09-15] MEDS: Calcium Gluconate/NaCl,Iso-Osm 2 GM/100 ML PLAST..BAG IV (07:43)
--- NOTE | 2022-09-15 07:49 | ECG_ITS ---
Test Reason : low heart rate Blood Pressure : / mmHG Vent. Rate : 028 BPM Atrial Rate : 000 BPM P-R Int : 000 ms QRS Dur : 182 ms QT Int : 770 ms P-R-T Axes : 000 -40 -03 degrees QTc Int : 524 ms Idioventricular rhythm with Premature supraventricular complexes in a pattern of bigeminy Left axis deviation Non-specific intra-ventricular conduction block Minimal voltage criteria for LVH, may be normal variant ( Jacek product ) Inferior infarct , age undetermined Abnormal ECG When compared with ECG of 15-SEP-2022 06:13, Idioventricular rhythm has replaced Sinus rhythm Referred By: Charlene Yo Electronically Signed By:TYLER GREENE MD
[2022-09-15] MEDS: Atropine Sulfate 1 MG/10 ML SYRINGE IVPUSH (07:51)
[2022-09-15] MEDS: Dextrose 50 % 25 GM/50 ML SYRINGE IVPUSH (07:51)
[2022-09-15 07:56] VITALS: BP 135/58
[2022-09-15 08:04] LABS: Glucose, Whole Blood 96 mg/dL (60-115)
[2022-09-15 08:04] LABS: Glucose, Whole Blood 40 mg/dL (60-115)
--- NOTE | 2022-09-15 08:07 | P.EN_ITS ---
Event Note Date of Service: 09/15/22 Event Note: Approximately 0730 patient was noted to be bradycardic with heart rate as low as 20s, blood sugar 40s. He was lethargic. Given dextrose, atropine and calcium gluconate. His heart rate did improve into the 60s and patient was more awake and responsive. Patient's stepdaughter was contacted as patient is a DNR/DNI and she did not want aggressive measures. Labs are pending as well as chest x- ray. At this point hemodynamically stable.
--- NOTE | 2022-09-15 08:10 | HO.PM.IMPN ---
Subjective Subjective Date of Service: 09/15/22 Interval History: awake and alert Rapid response called for bradycardia patient hemodynamically stable after treatment Physical Exam Vital Signs: Vital Signs: Last Vital Signs Temp 96.9 F 09/15/22 07:27 Pulse 39 L 09/15/22 07:27 Resp 18 09/15/22 07:27 BP 135/58 L 09/15/22 07:56 Pulse Ox 91 L 09/15/22 07:27 O2 Del Method 09/15/22 07:27 O2 Flow Rate 3 09/14/22 13:02 FiO2 100 09/14/22 08:00 Oxygen Flow Rate 3 09/14/22 13:10 BMI result Body Mass Index 21.6 Pale lung sounds rales heart regular rate rhythm, clear S1, S2 positive bowel sounds, abdomen is soft, nontender neuro patient is alert but lethargic Objective Data Active Medications Acetaminophen (Acetaminophen 325 Mg Tablet) 650 mg PO Q6H PRN PRN Reason: Pain, Mild (Pain Scale 1-3) Last Admin: 09/13/22 23:15 Dose: 650 mg Documented By: KELSEY Albuterol Sulfate (Albuterol Sulfate (0.083%) 2.5 Mg/3 Ml Vial.Neb) 2.5 mg INHALE RTID [facility] Last Admin: 09/14/22 18:54 Dose: Not Given Documented By: HOLDEN Non-Admin Reason: Patient Asleep Albuterol/Ipratropium (Albuterol/Iprat 2.5/0.5mg 3 Ml Ampul.Neb) 3 ml INHALE RQ6H PRN PRN Reason: Shortness of Breath/Wheezing Last Admin: 09/13/22 19:16 Dose: 3 ml Documented By: HOLDEN Amiodarone HCl (Amiodarone Hcl 200 Mg Tablet) 200 mg PO DAILY [facility] Last Admin: 09/15/22 07:42 Dose: Not Given Documented By: PHILIPP Non-Admin Reason: Physician Held Med Apixaban (Apixaban 5 Mg Tablet) 5 mg PO BID [facility] Last Admin: 09/15/22 07:43 Dose: Not Given Documented By: PHILIPP Non-Admin Reason: Physician Held Med Dextrose (Dextrose 50 % 25 Gm/50 Ml Syringe) 25 gm IVPUSH Q15M PRN; Protocol PRN Reason: per Hypoglycemia Standing Ord. Dextrose (Dextrose 50 % 25 Gm/50 Ml Syringe) 25 gm IVPUSH Q15M PRN PRN Reason: per Hypoglycemia Standing Ord. Docusate Sodium (Docusate Sodium 100 Mg Capsule) 100 mg PO DAILY PRN PRN Reason: Constipation Furosemide (Furosemide 40 Mg/4 Ml Vial) 40 mg IVPUSH Q12H BC; Protocol Last Admin: 09/15/22 04:22 Dose: 40 mg Documented By: RYLEE Glucose (Glucose Gel 15 Gm Gel..Gram.) 15 gm PO Q15M PRN; Protocol PRN Reason: per Hypoglycemia Standing Ord. Ceftriaxone Sodium 1 gm/ (Sodium Chloride) 50 mls @ 100 mls/hr IV Q24H [facility] Last Infusion: 09/14/22 18:03 Dose: 100 mls/hr Documented By: ALAINA Doxycycline Hyclate 100 mg/ (Sodium Chloride) 250 mls @ 166.67 mls/hr IV Q12H [facility] Last Infusion: 09/15/22 05:42 Dose: 0 mls/hr Documented By: RYLEE Insulin Glargine (Insulin Glargine,Hum.Rec.Anlog 100 Unit/Ml 10 Ml Vial) 6 unit SUBCUT BEDTIME [facility] Last Admin: 09/14/22 19:51 Dose: Not Given Documented By: RYLEE Non-Admin Reason: No Insulin Coverage Insulin Human Lispro (Insulin Lispro 100 Unit/Ml 3 Ml Vial) 0 unit SUBCUT QIDACHS [facility]; Protocol Last Admin: 09/15/22 07:41 Dose: Not Given Documented By: PHILIPP Non-Admin Reason: No Insulin Coverage Metoprolol Succinate (Metoprolol Succinate Er 50 Mg Tab.Er.24h) 50 mg PO DAILY [facility]; Protocol Last Admin: 09/15/22 07:43 Dose: Not Given Documented By: PHILIPP Non-Admin Reason: Physician Held Med Mexiletine HCl (Mexiletine Hcl 150 Mg Capsule) 150 mg PO Q8H [facility] Last Admin: 09/15/22 04:22 Dose: 150 mg Documented By: RYLEE Pharmacy Consult (Consult Rx Perform Med Rec) 1 each MISCELLANE ONCE PRN PRN Reason: Consult order Sodium Chloride (0.9 % Sodium Chloride Flush 3 Ml Syringe) 3 ml IVFLUSH QSHIFT BC Last Admin: 09/15/22 07:42 Dose: 3 ml Documented By: PHILIPP Labs CBC & Chem 7: 09/13/22 06:23 09/15/22 08:09 Labs: Laboratory Results - last 24 hr 09/14/22 09/14/22 09/14/22 08:07 11:37 12:00 Anion Gap 30 H Estim Creat Clear Calc 22.6 Estimated GFR 24 POC Glucose 127 H 104 Random Glucose 84 Calcium 9.4 09/14/22 09/14/22 09/15/22 16:25 19:17 07:26 Anion Gap Estim Creat Clear Calc Estimated GFR POC Glucose 82 92 45 L* Random Glucose Calcium 09/15/22 09/15/22 07:46 08:00 Anion Gap Estim Creat Clear Calc Estimated GFR POC Glucose 40 L* 96 Random Glucose Calcium Microbiology Microbiology Results: Microbiology 09/12/22 16:54 Blood Culture - Preliminary Blood - Venous No growth after 48 hours. 09/12/22 16:54 Blood Culture - Preliminary Blood - Venous No growth after 48 hours. Assessment and Plan (1) Pneumonia: Status: Acute Plan This is a 76 year old [place]er-speaking male with history of dementia (baseline oriented to person only), PAF, HFrEF, who presented with complaints of not feeling well found to have CHF and possible pneumonia Patient in complete heart block, cxr showing pulmonary vascular congestion, intermittent hypoxia with oxygen saturation down to 88%. Severe anion gap metabolic acidosis. Discussed with family patient's poor prognosis and they agree that they would want patient to be comfort measures only. Started morphine 2 mg every 2 hours for discomfort, pain/respiratory discomfort Scopolamine patch Lorazepam sublingual Oxygen for comfort All medications discontinued, no lab draws, no vital signs Bradycardia complete heart block Patient became bradycardic with heart rate 20s to 30s, received calcium gluconate, atropine with good response, heart rate up to the 60s Evaluated by Cardiology Anion gap Metabolic acidosis ABG Started Na bicarb Hypoglycemia Patient received dextrose with good response Ventricular tachycardia Rapid response called at approximately 0815 Rate in 120s Patient already on amiodarone Discussed with patient's healthcare proxy, patient is DNR/DNI, plan for hospice at home Discussed with Cardiology okay to try amiodarone 150 mg, if it does not work then cardiovert s/p tx to ICU for cardioversion, now back to floor, SR with 1st degree block in the 70's continue bb and amio as per cardiology Acute respiratory failure with hypoxia. Resolved s/p Oxygen saturation 88% on room air on arrival Secondary to decompensated CHF and pneumonia on a background of lung cancer Supplemental oxygen, wean as tolerated Community-acquired pneumonia meets sepsis criteria with tachycardia, tachypnea. no leukocytosis Lactic acid wnl , blood cultures pending Continue IV ceftriaxone, doxycycline speech eval to rule out aspiration blood cultures neg x 24hrs Acute on chronic HF with reduced EF/Right heart failure echo from 09/01 - EF 20-25%, severely decreased right ventricular systolic function, wall motion abnormality, moderate tricuspid valve regurgitation and severe pulmonary hypertension elevated BNP, leg edema, crackles low sodium diet, follow Intake and output ekg with twave inversions v2-v4, trops flat seen by cardiology will transition back to po lasix, likely in am Hyperkalemia resolved with kayexalate CKD3 trending up but within baseline DM continue lantus SSI,POCs Alzheimer's dementia baseline oriented to self Lung cancer s/p radiation currently not pursuing active treatment Under palliative care, family wants to transition to hospice Paroxysmal atrial fibrillation hold amiodarone for ow while giving IV bolus Continue Yonis Attending Code status-comfort measures only Healthcare proxy-daughterVani [phone] Patient requires ongoing inpatient hospitalization for management of pneumonia/IV abx Quality Stroke Does the patient have a stroke diagnosis?: No VTE Prior VTE?: No VTE Risk Level:: Medical - moderate - high VTE Device Contraindication: N/A - Device Ordered VTE Drug Contraindication: N/A - Med Ordered
[2022-09-15] MEDS: Albuterol Sulfate 5 MG, Albuterol Sulfate (0.083%) 2.5 MG 7.5 MG INHALE (08:26)
[2022-09-15 08:32] VITALS: PULSE 50; RESP 16; O2SAT 92
[2022-09-15] MEDS: Albuterol Sulfate (0.083%) 2.5 MG/3 ML VIAL.NEB INHALE (08:50)
[2022-09-15 08:52] LABS: Anion Gap 37 (12-20); Blood Urea Nitrogen 58 mg/dL (9-16); Calcium 9.7 mg/dL (8.4-10.2); Carbon Dioxide 8 mmol/L (22-29); Chloride 106 mmol/L (96-108); Estimated Glomerular Filt Rate 16; Glucose Random 96 mg/dL (60-115); Magnesium 2.7 mg/dL (1.6-2.6); Sodium 144 mmol/L (135-145)
--- NOTE | 2022-09-15 09:01 | PC.NURSE ---
PT received 2gm Calcium gluconate. Medication pushed fast due to patients condition
[2022-09-15 09:03] LABS: B Type Natriuretic Peptide 10406 pg/mL (<100)
[2022-09-15] MEDS: Morphine Sulfate 2 MG/ML CARTRIDGE IVPUSH (09:28)
[2022-09-15] MEDS: Sodium Zirconium Cyclosilicate 10 GM POWD.PACK PO (09:29)
[2022-09-15 09:46] LABS: ABG Base Excess -19.4 mmol/L; ABG HCO3 7 mmol/L (22-26); ABG pCO2 21 mmHg (32-45); ABG pH 7.14 (7.35-7.45); ABG pO2 93 mmHg (83-108)
[2022-09-15] MEDS: Furosemide 20 MG/2 ML VIAL IVPUSH (10:45)
[2022-09-15 10:57] LABS: Glucose, Whole Blood 117 mg/dL (60-115)
--- NOTE | 2022-09-15 11:36 | P.PNCA_ITS ---
Subjective Subjective Date of Service: 09/15/22 Principal diagnosis: Second-degree AV block Interval history: Patient clinical status has significantly worsened. He has severely acidemic related to renal failure with significant hyperkalemia at this point in time. He has developed second-degree AV block with 2 is to 1 conduction with significantly elevated BNP which could be due to reduced renal clearance but is in heart failure. 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 Review of Systems Review of Systems Yes Unobtainable due to mental status Physical Exam Vital Signs: Last Vital Signs Temp 96.9 F 09/15/22 07:27 Pulse 50 09/15/22 08:32 Resp 16 09/15/22 08:32 BP 135/58 L 09/15/22 07:56 Pulse Ox 91 L 09/15/22 07:27 O2 Del Method 09/15/22 07:27 O2 Flow Rate 3 09/14/22 13:02 FiO2 100 09/14/22 08:00 Oxygen Flow Rate 3 09/14/22 13:10 BMI result Body Mass Index 21.6 Pale lung sounds rales heart regular rate rhythm, clear S1, S2 positive bowel sounds, abdomen is soft, nontender neuro patient is alert but lethargic Objective Labs and Meds Result diagrams: 09/13/22 06:23 09/15/22 08:09 Lab results: Laboratory Results - last 24 hr 09/14/22 09/14/22 09/14/22 11:37 12:00 16:25 O2 Saturation ABG pH at Pt Temp ABG pCO2 at Pt Temp ABG pO2 at Pt Temp ABG HCO3 ABG Base Excess (Actual) Sodium 143 Potassium 6.3 H* D Chloride 104 Carbon Dioxide 15 L Anion Gap 30 H BUN 46 H Creatinine 2.56 H Estim Creat Clear Calc 22.6 Estimated GFR 24 POC Glucose 104 82 Random Glucose 84 Calcium 9.4 Magnesium B-Natriuretic Peptide 09/14/22 09/15/22 09/15/22 19:17 07:26 07:46 O2 Saturation ABG pH at Pt Temp ABG pCO2 at Pt Temp ABG pO2 at Pt Temp ABG HCO3 ABG Base Excess (Actual) Sodium Potassium Chloride Carbon Dioxide Anion Gap BUN Creatinine Estim Creat Clear Calc Estimated GFR POC Glucose 92 45 L* 40 L* Random Glucose Calcium Magnesium B-Natriuretic Peptide 09/15/22 09/15/22 09/15/22 08:00 08:09 08:09 O2 Saturation ABG pH at Pt Temp ABG pCO2 at Pt Temp ABG pO2 at Pt Temp ABG HCO3 ABG Base Excess (Actual) Sodium 144 Potassium Cancelled 7.0 H* Chloride 106 Carbon Dioxide 8 L* D Anion Gap 37 H BUN 58 H Creatinine 3.74 H Estim Creat Clear Calc 15.0 Estimated GFR 16 POC Glucose 96 Random Glucose 96 Calcium 9.7 Magnesium 2.7 H B-Natriuretic Peptide 09/15/22 09/15/22 09/15/22 08:09 09:39 10:53 O2 Saturation 93.0 ABG pH at Pt Temp 7.14 L* ABG pCO2 at Pt Temp 21 L ABG pO2 at Pt Temp 93 ABG HCO3 7 L ABG Base Excess (Actual) -19.4 Sodium Potassium Chloride Carbon Dioxide Anion Gap BUN Creatinine Estim Creat Clear Calc Estimated GFR POC Glucose 117 H Random Glucose Calcium Magnesium B-Natriuretic Peptide 07550 H Imaging Radiologist's impression: Impressions Chest X-Ray 09/15/22 08:55 IMPRESSION: Interval decrease in pulmonary vascular congestion, but mild increased right pleural effusion with layering and atelectasis. Progress Note: A&P Assessment and plan (1) Congestive heart failure: Status: Acute Assessment and Plan: Patient congestive heart failure in the setting of severe ischemic cardiomyopathy with a sustained VT yesterday status post cardioversion developed renal failure most likely due to reduced perfusion to the kidneys from yesterday with marked acidemia and hyperkalemia causing second-degree AV block in addition to the medications he is on. Overall prognosis is poor. 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 Family is in agreement. I think this is the best course given his multiple medical issues including untreated for lung cancer as well as advanced severe cardiomyopathy in now developing significant medical issues. Continue with supportive and comfort care. Will sign of the case Time Spent With Patient Time: Total time spent is greater than 50% in coordination of care (as documented) at patient's floor/unit and/or counseling patient: Progress Note: Quality Stroke Does the patient have a stroke diagnosis?: No Procedures Date of Service Date of Service: 09/15/22
[2022-09-15] MEDS: Scopolamine 1.5 MG PATCH.TD.3 TRANSDERMA (12:47)
--- NOTE | 2022-09-15 13:15 | PC.NURSE ---
AT 7:30 Patient Blood glucose 45. BP 98/62, HR in the 30. MD notified. orange juice given, repeat BG 45, 50% dextrose and atropine administered at 7:45. 2g Calcium gluconate given at 7:54. MD at the bedside. HR improve to [address] BG [address] Patient place on comfort measure.
[2022-09-15 14:08] LABS: ABG Refer to POC result
--- NOTE | 2022-09-15 15:32 | PM.EVENT ---
Event Note Date of Service: 09/15/22 Event Note: Called by our an, patient found to be unresponsive. Patient pronounced at 15:19. ID bracelet checked and patient confirmed. No response to tactile stimuli. No heart sounds or respiratory movement noted over one minute of auscultation, palpation or visualization. Pupils fixed with no response to light.
--- NOTE | 2022-09-15 15:34 | PM.DDS ---
Discharge Sum: Prov Provider Primary care physician: Ludin Anderson MD Consults: 09/12/22 17:01 Consult to Cardiology Routine Consulting Provider: Keo Sanon Reason for consultation: chf Has provider been notified: No 09/14/22 08:12 Consult to Cardiology Stat Consulting Provider: Denys Moreno Reason for consultation: WIDE COMPLEX TACHY Pronouncing clinician: Charlene Yo Discharge Sum: Diag Contributing Factors (1) Congestive heart failure: Discharge Sum: Summary Date and Time Date of admission: 09/12/22 16:45 Summary Details: Patient in complete heart block, cxr showing pulmonary vascular congestion, intermittent hypoxia with oxygen saturation down to 88%.? Severe anion gap metabolic acidosis.? Discussed with family patient's poor prognosis and they agree that they would want patient to be comfort measures only. Started morphine 2 mg every 2 hours for discomfort, pain/respiratory discomfort Scopolamine patch Lorazepam sublingual Oxygen for comfort All medications discontinued, no lab draws, no vital signs Patient pronounced at 15:19 Treated for the following conditions: Bradycardia complete heart block Patient became bradycardic with heart rate 20s to 30s, received calcium gluconate, atropine with good response, heart rate up to the 60s Evaluated by Cardiology Anion gap Metabolic acidosis ABG Started Na bicarb Hypoglycemia Patient received dextrose with good response Ventricular tachycardia Rapid response called at approximately 0815 Rate in 120s Patient already on amiodarone Discussed with patient's healthcare proxy, patient is DNR/DNI, plan for hospice at home Discussed with Cardiology okay to try amiodarone 150 mg, if it does not work then cardiovert s/p tx to ICU for cardioversion, now back to floor, SR with 1st degree block in the 70's continue bb and amio as per cardiology Acute respiratory failure with hypoxia. Resolved s/p Oxygen saturation 88% on room air on arrival Secondary to decompensated CHF and pneumonia on a background of lung cancer Supplemental oxygen, wean as tolerated Community-acquired pneumonia meets sepsis criteria with tachycardia, tachypnea. no leukocytosis Lactic acid wnl , blood cultures pending Continue IV ceftriaxone, doxycycline speech eval to rule out aspiration blood cultures neg x 24hrs Acute on chronic HF with reduced EF/Right heart failure echo from 09/01 - EF 20-25%, severely decreased right ventricular systolic function, wall motion abnormality, moderate tricuspid valve regurgitation and severe pulmonary hypertension elevated BNP, leg edema, crackles low sodium diet, follow Intake and output ekg with twave inversions v2-v4, trops flat seen by cardiology will transition back to po lasix, likely in am Hyperkalemia resolved with kayexalate CKD3 trending up but within baseline DM continue lantus SSI,POCs Alzheimer's dementia baseline oriented to self Lung cancer s/p radiation currently not pursuing active treatment Under palliative care, family wants to transition to hospice Paroxysmal atrial fibrillation hold? amiodarone for ow while giving IV bolus Continue Eliquis Additional Data Attending physician: Charlene Yo NP
--- NOTE | 2022-09-15 16:24 | PC.NURSE ---
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 at 1519. Pronounced by Charlene Yo NP. Family at bedside. Post mortem care to be provided after family has left. [facility] notified at [id number]. Case #[id number]. Casting Inspector Candelaria. Patient declined by [facility].
== END 2022-09-15 19:45 | disposition expired | DRG 871 ==
LOC: HO.ED 12:30 → HO.EDOVER 16:56 → HO.IMC 19:23 → HO.ICU 09-14 10:18 → HO.IMC 09-14 14:17
PROVIDERS: Internal Medicine; Student in an Organized Health Care Education/Training Program; Admitting Provider Physician Assistant Medical; Emergency Provider Emergency Medicine; PCP Internal Medicine; Visit Provider Nurse Practitioner Acute Care
DX: A41.9 Sepsis, unspecified organism (principal); I50.23 Acute on chronic systolic (congestive) heart failure; J18.9 Pneumonia, unspecified organism; J96.01 Acute respiratory failure with hypoxia; J44.0 Chronic obstructive pulmonary disease with (acute) lower respiratory infection; I13.0 Hypertensive heart and chronic kidney disease with heart failure and stage 1 through stage 4 chronic kidney disease, or unspecified chronic kidney disease; C34.31 Malignant neoplasm of lower lobe, right bronchus or lung; I48.11 Longstanding persistent atrial fibrillation; I47.20 Ventricular tachycardia, unspecified; E87.20 Acidosis, unspecified; I47.1 Supraventricular tachycardia; I44.2 Atrioventricular block, complete; Z66 Do not resuscitate; I25.10 Atherosclerotic heart disease of native coronary artery without angina pectoris; I50.813 Acute on chronic right heart failure; N18.30 Chronic kidney disease, stage 3 unspecified; G30.9 Alzheimer's disease, unspecified; Z51.5 Encounter for palliative care; F02.80 Dementia in other diseases classified elsewhere, unspecified severity, without behavioral disturbance, psychotic disturbance, mood disturbance, and anxiety; E87.5 Hyperkalemia; I25.5 Ischemic cardiomyopathy; E11.649 Type 2 diabetes mellitus with hypoglycemia without coma; I44.1 Atrioventricular block, second degree; E11.22 Type 2 diabetes mellitus with diabetic chronic kidney disease; E78.5 Hyperlipidemia, unspecified; Z20.822 Contact with and (suspected) exposure to COVID-19; Z92.3 Personal history of irradiation; Z86.73 Personal history of transient ischemic attack (TIA), and cerebral infarction without residual deficits; Z79.4 Long term (current) use of insulin; Z79.01 Long term (current) use of anticoagulants; Z79.899 Other long term (current) drug therapy
CPT/HCPCS: 0241U; 36415; 36600; 71045; 80048; 81001; 82803; 82947; 83605; 83735; 83880; 84484; 85025; 87040; 93005; 94640; 99285; C1758; J0282; J0456; J0461; J0610; J0696; J1940; J2270